=== PATIENT | female | born 1945 | race Caucasian/White ===

== ENCOUNTER 2017-12-25 11:52 | Outpatient (CLI) | payer MEDICARE, SELFPAY ==
[2017-12-25 13:07] LABS: Hemoglobin A1C 7.3 % (4.5-6.2)
[2017-12-25 13:10] LABS: COMMENT (LAB VIEW ONLY) 102.93 mg/dL
[2017-12-25 13:21] LABS: Abs Immature Grans 0.02 k/cumm (0.0-0.09); Absolute Basophil Count 0.11 k/cumm (0.0-0.2); Absolute Eosinophil Count 0.33 k/cumm (0.0-0.7); Absolute Lymphocyte Count 2.42 k/cumm (1.2-3.4); Absolute Neutrophil Count 4.77 k/cumm (1.2-6.7); Basophils % 1.3; HCT 40.4 % (36.0-46.0); HGB 13.1 g/dL (12.0-15.5); Immature Grans % 0.2; Lymphocytes % 29.3; Mean Corp. HGB Concentration 32.4 g/dL (32.0-36.0); Mean Corpuscular Hemoglobin 29.3 pg (27.0-33.0); Mean Corpuscular Volume 90.4 fL (80-95); Monocytes % 7.3; Neutrophils % 57.9; Platelet Count 233 x1000/uL (130-400); RBC 4.47 m/cumm (4.00-5.20); RBC Distribution Width 14.1 % (11.7-14.6); White Blood Cell Count 8.25 k/cumm (4.4-10.8)
[2017-12-25 14:31] LABS: ALT 31 U/L (12-78); AST 26 U/L (15-37); Albumin 3.9 g/dL (3.4-5.0); Alkaline Phosphatase 69 U/L (46-116); Anion Gap 9.4 mmol/L (3-11); BUN 12 mg/dL (7-18); Bilirubin, Total 0.8 mg/dL (0.2-1.0); CO2 30.6 mmol/L (21.0-32.0); CREATININE 0.91 mg/dL (0.55-1.02); Calcium 9.9 mg/dL (8.5-10.1); Chloride 101 mmol/L (98-107); Cholesterol 211 mg/dL (50-200); Glucose 143 mg/dL (70-100); HDL Cholesterol 66 mg/dL (40-60); LDL CHOLESTEROL 126 mg/dL (<100); Magnesium 1.2 mg/dL (1.8-2.4); Potassium 3.5 mmol/L (3.5-5.1); Sodium 141 mmol/L (136-145); Total Protein 6.9 g/dL (6.4-8.2); Triglyceride 102 mg/dL (30-150); Vitamin B12 632 pg/mL (193-986)
== END 2017-12-25 12:12 ==
PROVIDERS: PCP Nurse Practitioner Family; Visit Provider Nurse Practitioner Family
DX: E78.5 Hyperlipidemia, unspecified (principal); E11.9 Type 2 diabetes mellitus without complications
CPT/HCPCS: 36415; 80053; 80061; 83721; 82043; 82570; 82607; 83036; 83735; 85025

== ENCOUNTER 2018-03-04 19:15 | Outpatient (REF) | payer MEDICARE, SELFPAY ==
[2018-03-04 19:24] LABS: Bilirubin Negative (Negative); Blood Trace-lysed (Negative); Clarity Clear; Glucose Negative (Negative); Ketones Negative (Negative); Leukocyte Esterase Negative (Negative); Nitrite Negative (Negative); Specific Gravity 1.015 (1.005-1.025); Urobilinogen 0.2 EU/dL (Up TO 0.2)
[2018-03-04 19:30] LABS: Bacteria Few HPF (Negative); C & S Indicated? No; Casts Negative LPF (Negative); Crystals Negative HPF (Negative); Epithelial Cells Rare HPF (Negative); Mucus Negative (Negative); Other Cells Negative (Negative); RBC 0-2 (0-2); WBC Negative HPF (0-5)
== END 2018-03-04 19:35 ==
LOC: LBN 19:15
PROVIDERS: PCP Nurse Practitioner Family; Visit Provider Nurse Practitioner Family
DX: E11.9 Type 2 diabetes mellitus without complications (principal)
CPT/HCPCS: 81003; 81015

== ENCOUNTER 2018-06-28 10:16 | Outpatient (CLI) | payer MEDICARE, SELFPAY ==
--- NOTE | 2018-06-28 10:12 | DI.RAD_ITS ---
SYMPTOMS/DIAGNOSIS: FIRST YEAR F/U S/P RT TKA RIGHT KNEE: Comparison is made with [id number]. A total knee prosthesis is again noted. There are no abnormal bony lucencies. No joint effusion is seen. IMPRESSION: Stable appearance of total knee prosthesis.
== END 2018-06-28 10:36 ==
PROVIDERS: PCP Nurse Practitioner Family; Referring Provider Nurse Practitioner Family; Visit Provider Student in an Organized Health Care Education/Training Program
DX: Z96.651 Presence of right artificial knee joint (principal); Z98.890 Other specified postprocedural states
CPT/HCPCS: 99213; 73560

== ENCOUNTER → 2018-07-14 10:01 | Outpatient (BNVA) | payer MEDICARE, SELFPAY | PROVIDERS: PCP Nurse Practitioner Family; Referring Provider Nurse Practitioner Family; Visit Provider Student in an Organized Health Care Education/Training Program | DX: S93.411A Sprain of calcaneofibular ligament of right ankle, initial encounter (principal); W01.0XXA Fall on same level from slipping, tripping and stumbling without subsequent striking against object, initial encounter; X50.9XXA Other and unspecified overexertion or strenuous movements or postures, initial encounter; E11.9 Type 2 diabetes mellitus without complications; I10 Essential (primary) hypertension | CPT/HCPCS: 99214; L4361 ==

== ENCOUNTER 2018-07-19 10:22 | Outpatient (CLI) | payer MEDICARE, SELFPAY ==
[2018-07-19 10:48] LABS: Hemoglobin A1C 7.7 % (4.5-6.2)
[2018-07-19 11:28] LABS: Anion Gap 8.3 mmol/L (3-11); BUN 12 mg/dL (7-18); CO2 30.7 mmol/L (21.0-32.0); CREATININE 0.87 mg/dL (0.55-1.02); Calcium 10.3 mg/dL (8.5-10.1); Chloride 101 mmol/L (98-107); Glucose 154 mg/dL (70-100); Magnesium 1.6 mg/dL (1.8-2.4); Potassium 4.4 mmol/L (3.5-5.1); Sodium 140 mmol/L (136-145)
== END 2018-07-19 10:42 ==
PROVIDERS: PCP Nurse Practitioner Family; Visit Provider Nurse Practitioner Family
DX: E11.9 Type 2 diabetes mellitus without complications (principal); E83.42 Hypomagnesemia; Z12.11 Encounter for screening for malignant neoplasm of colon; I10 Essential (primary) hypertension
CPT/HCPCS: 36415; 80048; 83036; 83735

== ENCOUNTER → 2018-07-28 10:17 | Outpatient (BNVA) | payer MEDICARE, SELFPAY | PROVIDERS: PCP Nurse Practitioner Family; Referring Provider Nurse Practitioner Family; Visit Provider Student in an Organized Health Care Education/Training Program | DX: S93.411A Sprain of calcaneofibular ligament of right ankle, initial encounter (principal); W19.XXXA Unspecified fall, initial encounter; E11.9 Type 2 diabetes mellitus without complications; I10 Essential (primary) hypertension | CPT/HCPCS: 99212; 99213 ==

== ENCOUNTER 2018-08-09 12:59 | Day surgery (SDC) | payer MEDICARE, SELFPAY ==
--- NOTE | 2018-08-09 06:58 | W.COLOREPORT ---
Date of service: 08/09/18 Time of Service: 14:41 Colonoscopy Report Date of procedure: 08/09/18 Pre-op diagnosis general: Colon Cancer Screening Post-op diagnosis procedure note: other (colorectal polyps) Procedure: Colonoscopy with polypectomy by cold forceps Surgeon: Colleen Fuller Anesthesia proc note operative: other (General/ ASA 2/ Kateryna Bear CRNA) Estimated blood loss (mL): 3 Pathology: other (Ascending colon polyp and Transverse colon polyp) Complications: None Disposition: same day Indications: Mrs. Martinez is a pleasant 72-year-old female who was seen in the office for a screening colonoscopy. Her last colonoscopy was in 2006 and was normal. Risks, benefits and complications have been reviewed. Complications include but are not limited to bleeding, pain, perforation, missed small lesion/polyp, sore throat, aspiration and adverse reaction to the medications. Questions were entertained and answered to their satisfaction and they wished to proceed. No guarantees were given or implied. Prep: Miralax/Dulcolax Procedure Start Time: 14:41 Procedure End Time: 15:16 Retraction Time: 16 minutes Findings: One sessile polyp in the ascending colon and one pedunculated polyp in the Transverse colon. Both removed with cold forceps Procedure Description: After informed consent was obtained the patient was taken to the procedure room and placed in a left decubitous position. Monitors were applied and a time out was done. The patients name, date of , procedure, allergies to medications and metal in their body was reviewed. The patient was then sedated. Once sedated and comfortable a rectal exam was done. External exam was normal. Internal exam revealed a normal sphincter tone and no palpable masses. The scope was then introduced and retro-flexed. No internal hemorrhoids were identified. The scope was then advanced to the cecum with some difficulty. The TI and appendiceal orifice were identified. The prep was adequate. The scope was then slowly retracted over 16 minutes back into the rectum. Polyps were removed with cold forceps in the ascending colon and descending colon. There were no diverticula noted. The scope was removed and the patient was woken up and taken back to Same day surgery in stable condition. The patient tolerated the procedure well and there were no immediate complications. Follow up: The patient should follow up in 3-5 years unless they develop changes in bowel habits or other new gastrointestinal complaints.
--- NOTE | 2018-08-09 07:03 | W.PM.DSUDISC ---
Discharge Plan Disposition Patient Disposition: HOME Condition: Good Discharge Details Reason For Visit: Colon Cancer Screening Attending Provider: Colleen Fuller Primary Care Provider: Alana Quezada Home Meds and New Rx's Prescriptions: Continued lisinopril 10 mg tablet 10 mg PO DAILY Qty: 30 RF: 0 empagliflozin 10 mg tablet 10 mg PO DAILY Qty: 30 RF: 0 magnesium oxide 400 mg capsule 400 mg PO BID RF: 0 aspirin 81 mg tablet,delayed release (DR/EC) 81 mg PO DAILY Qty: 80 RF: 0 simvastatin 40 mg tablet 40 mg PO DAILY Qty: 90 RF: 4 multivitamin [Daily Multi-Vitamin] 1 EACH tablet 1 ea PO DAILY RF: 0 blood-glucose meter 1 EACH misc 1 ea Miscellaneous ONCE Qty: 1 RF: 0 lancets 1 EACH misc 1 ea Miscellaneous QD Qty: 200 RF: 4 Blood Glucose Test 1 EACH strip 1 ea Miscellaneous DAILY Qty: 200 RF: 4 atenolol 50 mg tablet 50 mg PO DAILY Qty: 90 RF: 4 omeprazole 20 mg capsule,delayed release(DR/EC) 20 mg PO QAM Qty: 90 RF: 4 acetaminophen [Tylenol Extra Strength] 500 mg Tablet 500 mg PO Q6H PRNRF: 0 Discontinued polyethylene glycol 3350 17 gram/dose powder 238 g PO ONCE Qty: 238 RF: 0 bisacodyl [Dulcolax (bisacodyl)] 5 mg tablet,delayed release (DR/EC) 5 mg PO ONCE Qty: 4 RF: 0 Discharge Instructions Instructions: Colonoscopy (DC), Colorectal Polyps (DC) Additional Instructions: Findings: polyps x2 Follow up: 3-5 years Please call if you develop: fevers >101.5 Nausea or Vomiting Abdominal pain that is not transient DAY SURGERY UNIT POST COLONOSCOPY INSTRUCTIONS 1. Because there will be medication in your system for the next 24 hours, you may feel a little sleepy. Your coordination will be affected. Therefore: a. Do not drive or operate dangerous equipment for 24 hours. b. Do not drink alcohol beverages for 24 hours (not even beer). c. Plan to go home and rest for the day. 2. Generally there are no restrictions on your activity after a day or so has gone by, but you may feel a bit fatigued for a few days. 3 After you arrive home you may have a light meal and return to a normal diet as you can tolerate it without feeling sick to your stomach. 4. After surgery, you may feel pain or discomfort. This should be only transient, but if it persists please contact your doctor. 5. If there are any questions regarding the findings of your procedure, please feel free to contact your doctor. 6. If you are unable to contact your doctor with a problem, contact the hospital at [phone]. 7. Continue all your regular medications unless directed otherwise. I understand the above instructions and have no questions. Signature of Patient or Responsible Adult Escort Date/Time Name of Responsible Adult Escort Signature of Nurse Date/Time Activity:: Activity as Tolerated Diet:: As Tolerated Discharge Orders Discharge Orders: Discharge Order (Routine); Ordered 08/09/18 Ordered By: Colleen Fuller DS: Diagnosis Discharge Diagnosis (1) S/P colonoscopy: Status: Acute (2) Colorectal polyps: Status: Acute
[2018-08-09 13:33] VITALS: BP 154/76; PULSE 64; RESP 16; TEMP 36.2; O2SAT 96
[2018-08-09] MEDS: Lactated Ringers 1,000 ML 80 ML IV (13:45)
--- NOTE | 2018-08-09 15:04 | BOWEL_PTH ---
PATIENT: Suha Martinez LOC: [facility] U#:[id number] AGE/SX: 72/F ROOM: RE08/09/[address]: Colleen Fuller MD : 1945 BED: DIS: 08/09/2018 SPEC #: [id number] RECD: 08/09/18 18:19 STATUS: STEFAN REThomas #: [id number] DANIELA: 08/09/18 15:[address]: Colleen Fuller DEPT: Surgical Specimen RECD BY: Tita Gallardo ENTERED: 08/09/18 18:19 SP TYPE: Bowel OTHR DR: RICKY Rodgers Tissues: 1 - BIOPSY BOWEL 2 - BIOPSY BOWEL Procedures: GROSS AND MICRO LEVEL 4 Comments: [id number]
[2018-08-09 16:00] VITALS: BP 122/60; PULSE 64; RESP 16; TEMP 35.9; O2SAT 97
== END 2018-08-09 16:30 | disposition home or self-care (01) ==
LOC: SUR 12:59
PROVIDERS: PCP Nurse Practitioner Family; Visit Provider Surgery
PROC: 0DJD8ZZ Inspection of Lower Intestinal Tract, Via Natural or Artificial Opening Endoscopic (ICD-10-PCS; CPT 45378; principal; 2018-08-09 14:00)
DX: Z12.11 Encounter for screening for malignant neoplasm of colon (principal); D12.2 Benign neoplasm of ascending colon; D12.3 Benign neoplasm of transverse colon; I10 Essential (primary) hypertension; K21.9 Gastro-esophageal reflux disease without esophagitis; E11.9 Type 2 diabetes mellitus without complications; Z79.84 Long term (current) use of oral hypoglycemic drugs
CPT/HCPCS: 45380; 88305

== ENCOUNTER 2018-09-29 11:22 | Outpatient (CLI) | payer MEDICARE, SELFPAY ==
--- NOTE | 2018-09-29 11:18 | DI.RAD_ITS ---
SYMPTOMS/DIAGNOSIS: NEW PAIN OVER MEDIAL TKA, CONTINUED RT ANKLE PAIN AND SWELLING RIGHT KNEE: Two views were obtained. There is a total knee joint replacement in position. The components appear well seated. No other significant bony abnormality is seen. RIGHT ANKLE: Three views were obtained. The ankle mortise is well maintained. There are minimal degenerative changes of the joints of the ankle. There are osteophytes at the sites of attachment of the Achilles tendon and plantar fascia on the calcaneus. No other significant bony abnormality is seen.
== END 2018-09-29 11:42 ==
PROVIDERS: PCP Nurse Practitioner Family; Referring Provider Nurse Practitioner Family; Visit Provider Student in an Organized Health Care Education/Training Program
DX: Z96.651 Presence of right artificial knee joint (principal); S93.411A Sprain of calcaneofibular ligament of right ankle, initial encounter; M25.561 Pain in right knee; M25.571 Pain in right ankle and joints of right foot; M19.071 Primary osteoarthritis, right ankle and foot; M25.771 Osteophyte, right ankle; I10 Essential (primary) hypertension; X58.XXXA Exposure to other specified factors, initial encounter; E11.9 Type 2 diabetes mellitus without complications
CPT/HCPCS: 99213; 73560; 73610

== ENCOUNTER 2018-10-11 07:42 | Outpatient (CLI) | payer MEDICARE, SELFPAY ==
[2018-10-11 10:34] LABS: Hemoglobin A1C 7.5 % (4.5-6.2)
[2018-10-11 10:56] LABS: BUN 16 mg/dL (7-18); CREATININE 0.82 mg/dL (0.55-1.02); Calcium 9.9 mg/dL (8.5-10.1); Calculated LDL 105 mg/dL; Chloride 106 mmol/L (98-107); Cholesterol 182 mg/dL (50-200); Glucose 144 mg/dL (70-100); HDL Cholesterol 55 mg/dL (40-60); Magnesium 1.9 mg/dL (1.8-2.4); Potassium 4.3 mmol/L (3.5-5.1); Sodium 142 mmol/L (136-145); Triglyceride 110 mg/dL (30-150)
== END 2018-10-11 08:02 ==
PROVIDERS: PCP Nurse Practitioner Family; Visit Provider Nurse Practitioner Family
DX: E11.9 Type 2 diabetes mellitus without complications (principal); E83.42 Hypomagnesemia
CPT/HCPCS: 36415; 80048; 80061; 83721; 83036; 83735

== ENCOUNTER 2018-11-04 14:43 | Outpatient (REF) | payer MEDICARE, SELFPAY ==
--- NOTE | 2018-11-04 13:40 | PAPFT_PTH ---
PATIENT: Suha Martinez LOC: [facility] U#:[id number] AGE/SX: 72/F ROOM: RE11/04/[address]: Dinah Chiu MD : 1945 BED: DIS: 11/04/2018 SPEC #: [id number] RECD: 11/04/18 17:40 STATUS: STEFAN HUANG #: [id number] DANIELA: 11/04/18 13:[address]: Dinah Chiu DEPT: [facility] Cytology RECD BY: Tita Gallardo ENTERED: 11/04/18 17:41 SP TYPE: PAPFT MARC DR: Alana Quezada, OCCASIONAL CAREGIVER Tissues: 1 - CX/ENDOCX FOR PAP SMEARS Procedures: PAP THIN PREP/UVM Screening Comments: [id number]
== END 2018-11-04 15:03 ==
LOC: LBN 14:43
PROVIDERS: PCP Nurse Practitioner Family; Visit Provider Obstetrics & Gynecology
DX: Z12.4 Encounter for screening for malignant neoplasm of cervix (principal)
CPT/HCPCS: 88142

== ENCOUNTER → 2018-11-10 10:43 | Outpatient (BNVA) | payer MEDICARE, SELFPAY | PROVIDERS: PCP Nurse Practitioner Family; Referring Provider Nurse Practitioner Family; Visit Provider Student in an Organized Health Care Education/Training Program | DX: S93.411D Sprain of calcaneofibular ligament of right ankle, subsequent encounter (principal); I10 Essential (primary) hypertension; E11.9 Type 2 diabetes mellitus without complications; X58.XXXD Exposure to other specified factors, subsequent encounter | CPT/HCPCS: 99213 ==

== ENCOUNTER 2019-05-27 15:04 | Outpatient (CLI) | payer MEDICARE, SELFPAY ==
--- NOTE | 2019-05-27 14:19 | DI.MAMMO_ITS ---
EXAM: MAMMO SCREENING CLINICAL HISTORY: screening Z12.39 TECHNIQUE: Mammograms were interpreted according to the usual protocol including computer analysis w THE [employer] CAD system, tomosynthesis and C-view imaging. COMPARISON: 2014 through 2017 FINDINGS: The breasts are composed of mainly fatty density , Breast Density category A. No suspicious masses or suspicious microcalcifications are seen. No skin thickening or abnormal axillary lymph nodes are seen. There has been no significant change from prior exams. Vascular calcifications are noted. IMPRESSION: BIRADS Category 1, negative mammogram. Yearly screening mammography is recommended. Breast density category A.
== END 2019-05-27 15:24 ==
PROVIDERS: PCP Nurse Practitioner Family; Visit Provider Nurse Practitioner Family
DX: Z12.31 Encounter for screening mammogram for malignant neoplasm of breast (principal)
CPT/HCPCS: 77063; 77067

== ENCOUNTER 2019-08-15 01:38 | Outpatient (CLI) | payer MEDICARE, SELFPAY ==
--- NOTE | 2019-08-15 07:30 | DI.RAD_ITS ---
EXAM: XR MANDIBLE COMPLETE CLINICAL HISTORY: Right sided jaw pain since fall r68.84 TECHNIQUE: COMPARISON: No exams were available for comparison FINDINGS: Seven views were obtained. The patient is edentulous. No fracture of the mandible identified on the films obtained, however, I would note that the mandibular condyles are poorly visualized. If there is clinical suspicion of a mandibular condylar fracture, additional evaluation with CT would be recom mended. IMPRESSION:
== END 2019-08-15 01:58 ==
PROVIDERS: PCP Nurse Practitioner Family; Visit Provider Nurse Practitioner Family
DX: R68.84 Jaw pain (principal)
CPT/HCPCS: 70110

== ENCOUNTER 2019-09-29 11:51 | Outpatient (CLI) | payer MEDICARE, OTHER, SELFPAY ==
--- NOTE | 2019-09-29 11:17 | DI.RAD_ITS ---
EXAM: XR KNEE RT 2V AP,LAT CLINICAL HISTORY: KNEE PAIN TECHNIQUE: COMPARISON: CR XR knee RT 2V AP,lat from 09/29/2018 FINDINGS: Two views were obtained. There is a total knee joint replacement in position. The components appear well seated. No other significant bony abnormality seen. IMPRESSION:
== END 2019-09-29 12:11 ==
PROVIDERS: PCP Nurse Practitioner Family; Referring Provider Nurse Practitioner Family; Visit Provider Student in an Organized Health Care Education/Training Program
DX: M25.561 Pain in right knee (principal); Z96.651 Presence of right artificial knee joint; M70.51 Other bursitis of knee, right knee; E11.9 Type 2 diabetes mellitus without complications
CPT/HCPCS: 99213; 73560

== ENCOUNTER 2019-11-17 22:20 | Outpatient (REF) | payer MEDICARE, OTHER, SELFPAY ==
[2019-11-17 19:46] LABS: ALT 22 U/L (14-59); AST 16 U/L (15-37); Albumin 3.9 g/dL (3.4-5.0); Alkaline Phosphatase 49 U/L (46-116); Anion Gap 9.9 mmol/L (3-11); BUN 21 mg/dL (7-18); Bilirubin, Total 0.4 mg/dL (0.2-1.0); CO2 27.1 mmol/L (21.0-32.0); CREATININE 1.03 mg/dL (0.55-1.02); Calcium 9.9 mg/dL (8.5-10.1); Calculated LDL 94 mg/dL (<100); Chloride 103 mmol/L (98-107); Cholesterol 182 mg/dL (<200); Estimated GFR 52.38 (mL/min/1.73m2); Glucose 234 mg/dL (74-106); HDL Cholesterol 51 mg/dL (40-60); Potassium 3.5 mmol/L (3.5-5.1); Sodium 140 mmol/L (136-145); Total Protein 6.8 g/dL (6.4-8.2); Triglyceride 185 mg/dL (<150)
[2019-11-17 20:37] LABS: Hemoglobin A1C 6.9 % (3.8-5.6)
== END 2019-11-17 22:40 ==
LOC: LBN 22:20
PROVIDERS: PCP Nurse Practitioner Family; Visit Provider Nurse Practitioner Family
DX: E11.9 Type 2 diabetes mellitus without complications (principal)
CPT/HCPCS: 80053; 80061; 83036

== ENCOUNTER 2019-11-25 04:26 | Outpatient (CLI) | payer MEDICARE, SELFPAY ==
--- NOTE | 2019-11-25 07:45 | DI.US_ITS ---
EXAM: US PELVIS TRANSVAGINAL CLINICAL HISTORY: Lower abdominal pain, hx of pelvic mesh placement,R10.30 TECHNIQUE: Transabdominal and transvaginal imaging was performed using standard protocol. COMPARISON: None FINDINGS: KIDNEYS: Kidneys are symmetric in size. No evidence of renal calculi. No evidence of hydronephrosis. There is a 1 centimeter hyperechoic area near the lower pole of the left kidney consistent with incid ental angiomyolipoma. Patient had difficulty tolerating the transvaginal portion of the exam. UTERUS: Status post hysterectomy. OVARIES: Not seen. Bladder: The urinary bladder was only mildly distended on transabdominal imaging. On transvaginal im aging, there is apparent thickening and trabeculation of the bladder wall as well as debris within th e bladder. No focal mass or calcification is visible. Free fluid: None. IMPRESSION: Status post hysterectomy. The ovaries were not visualized. Thick walled bladder with trabeculation. Debris is seen within the bladder. DATA REPOSITORY:
== END 2019-11-25 04:46 ==
PROVIDERS: PCP Nurse Practitioner Family; Visit Provider Nurse Practitioner Family
DX: R10.30 Lower abdominal pain, unspecified (principal); Z90.710 Acquired absence of both cervix and uterus
CPT/HCPCS: 76830; 76856

== ENCOUNTER 2020-02-08 18:02 | Outpatient (REF) | payer MEDICARE, SELFPAY ==
[2020-02-13 22:20] LABS: SARS-CoV-2 RNA Undetected (Undetected); SARS-CoV-2 Specimen Source Nasal
== END 2020-02-08 18:22 ==
LOC: LBN 18:02
PROVIDERS: PCP Nurse Practitioner Family; Visit Provider Nurse Practitioner Family
DX: R05 Cough (principal); J06.9 Acute upper respiratory infection, unspecified
CPT/HCPCS: U0003

== ENCOUNTER 2020-12-07 14:42 | Outpatient (REF) | payer MEDICARE, SELFPAY ==
[2020-12-07 13:09] LABS: Hemoglobin A1C 6.9 % (<5.7)
[2020-12-07 13:11] LABS: ALT 33 U/L (14-59); AST 18 U/L (15-37); Alkaline Phosphatase 61 U/L (46-116); Anion Gap 10.2 mmol/L (3-11); BUN 18 mg/dL (7-18); Bilirubin, Total 0.4 mg/dL (0.2-1.0); CO2 26.8 mmol/L (21.0-32.0); CREATININE 1.1 mg/dL (0.55-1.02); Calcium 10.2 mg/dL (8.5-10.1); Calculated LDL 101 mg/dL (<100); Chloride 106 mmol/L (98-107); Cholesterol 184 mg/dL (<200); Estimated GFR 48.42 (mL/min/1.73m2); Glucose 157 mg/dL (74-106); HDL Cholesterol 65 mg/dL (40-60); Potassium 4.1 mmol/L (3.5-5.1); Sodium 143 mmol/L (136-145); Total Protein 6.9 g/dL (6.4-8.2); Triglyceride 94 mg/dL (<150)
== END 2020-12-07 14:43 | disposition home or self-care (01) ==
LOC: LBN 14:42
PROVIDERS: PCP Nurse Practitioner Family; Visit Provider Nurse Practitioner Family
DX: I10 Essential (primary) hypertension (principal); E11.9 Type 2 diabetes mellitus without complications
CPT/HCPCS: 80053; 80061; 83036

== ENCOUNTER 2021-04-09 01:08 | Outpatient (CLI) | payer MEDICARE, SELFPAY ==
--- NOTE | 2021-04-09 07:15 | DI.MAMMO_ITS ---
Exam(s) MAMMO SCREENING EXAM: MAMMO SCREENING CLINICAL HISTORY: screening,z12.39 TECHNIQUE: Bilateral full field digital CC and MLO mammographic images were obtained with 3D tomosyn thesis and utilizing computer aided detection (CAD). COMPARISON: Available for comparison. FINDINGS: Masses/Architectural Distortion: None seen. Microcalcifications: No suspicious pleomorphic-type are seen. Skin Thickening/Nipple Retraction: None. IMPRESSION: 1. No significant interval change with no specific features of malignancy noted. 2. Unless there is more urgent need, screening mammography is recommended, as per [employer] guidelines. BI-RADS Category 1 - Negative Breast Density - Category B - Scattered areas of fibroglandular density Breast density category C or D implies that the patient has dense breast tissue. Dense breast tissue is very common and is not abnormal but dense breast tissue can make it harder to find cancer on a ma mmogram. Also, dense breast tissue may increase their breast cancer risk. This information about the result of the mammogram report was provided to the patient to raise their awareness. Use this report when you speak with the patient about their risks for breast cancer, which includes their family hist ory. At that time, you may recommend for more screening tests (Ultrasound or MRI) as they might be us eful based on their risk. A negative radiographic report should not delay biopsy if a dominant or clinically suspicious mass is present. Up to ten percent of cancers are not identified on mammography. A negative report may reinforce clinical impression. Adenosis and dense breasts may obscure an underlying neoplasm. False positive reports average 6 to 10%. Patient will receive a letter notifying them of these results.
== END 2021-04-09 01:28 ==
PROVIDERS: PCP Nurse Practitioner Family; Visit Provider Nurse Practitioner Family
DX: Z12.31 Encounter for screening mammogram for malignant neoplasm of breast (principal)
CPT/HCPCS: 77063; 77067

== ENCOUNTER 2021-07-09 04:38 | Outpatient (CLI) | payer MEDICARE, SELFPAY | END 2021-07-09 04:39 | disposition home or self-care (01) | LOC: LBO 04:38 | PROVIDERS: PCP Nurse Practitioner Family; Visit Provider Nurse Practitioner Family ==

== ENCOUNTER 2021-08-29 12:05 | Outpatient (REF) | payer MEDICARE, SELFPAY | END 2021-08-29 12:06 | disposition home or self-care (01) | LOC: LBN 12:05 | PROVIDERS: PCP Nurse Practitioner Family; Visit Provider Nurse Practitioner | DX: R35.0 Frequency of micturition (principal) | CPT/HCPCS: 87077; 87086; 87186 ==

== ENCOUNTER 2021-09-04 03:55 | Outpatient (CLI) | payer MEDICARE, SELFPAY ==
[2021-09-04 13:41] LABS: Anion Gap 8.4 mmol/L (3-11); BUN 16 mg/dL (7-18); CO2 27.6 mmol/L (21.0-32.0); CREATININE 0.9 mg/dL (0.55-1.02); Calcium 9.9 mg/dL (8.5-10.1); Calculated LDL 102 mg/dL (<100); Chloride 105 mmol/L (98-107); Cholesterol 186 mg/dL (<200); Glucose 168 mg/dL (74-106); HDL Cholesterol 65 mg/dL (40-60); Potassium 4.7 mmol/L (3.5-5.1); Sodium 141 mmol/L (136-145); Triglyceride 96 mg/dL (<150)
== END 2021-09-04 03:56 | disposition home or self-care (01) ==
LOC: LOS 03:55
PROVIDERS: PCP Nurse Practitioner Family; Visit Provider Nurse Practitioner
DX: I10 Essential (primary) hypertension; E11.9 Type 2 diabetes mellitus without complications
CPT/HCPCS: 36415; 80048; 80061; 83036

== ENCOUNTER 2022-01-20 07:22 | Day surgery (SDC) | payer MEDICARE, SELFPAY ==
[2022-01-20] MEDS: Tropicam./Phenyleph. (1/2.5%) 5 ML BTL OD ×3 (07:52→08:09)
[2022-01-20 08:00] VITALS: BP 156/70; PULSE 78; RESP 16; TEMP 36.4; O2SAT 98
--- NOTE | 2022-01-20 08:06 | ANES.PREOP_ITS ---
General Info Date of Service Date Performed: 01/20/22 Height: 5 ft 2 in Weight: 72 kg Body Mass Index (BMI): 29.0 Surgical Procedure: Operation Date: 01/20/22 09:40 Proposed Procedure Side Surgeon p Cataract Extraction with IOL Implant Right Filemon Reeves MD Meds Allergies and Home Medications Allergies Allergy/AdvReac Type Severity Reaction Status Date / Time Iodinated Contrast Media Allergy Severe RASH Verified 01/20/22 07:57 [Iodinated Contrast- Oral and IV Dye] codeine AdvReac Severe PASSES Verified 01/20/22 07:57 OUT, VOMITS morphine AdvReac Severe PASSES Verified 01/20/22 07:57 OUT, VOMITS meperidine AdvReac Unknown Pt reports Verified 01/20/22 07:57 vomiting foam oxycodone AdvReac Unknown vomits Verified 01/20/22 07:57 tramadol AdvReac VOMITING, Verified 01/20/22 07:57 UNABLE TO MOVE NARCOTICS AdvReac VOMITING Uncoded 01/20/22 07:57 Home Medication Medication Instructions Recorded blood-glucose meter #1 ea 08/22/15 aspirin 81 mg tablet,delayed 81 mg PO DAILY #80 tabs 03/04/18 release potassium chloride 10 mEq 10 meq PO DAILY 04/20/19 tablet,extended release vit C 250 mg-vit E 90 mg-zinc 40 1 tab PO BID 04/20/19 mg-copper 1 uk-zhvtwm-lllhhy capsule (PreserVision AREDS-2) lancets 33 gauge (BD Ultra Fine #200 ea 08/27/20 Lancets) blood sugar diagnostic (FreeStyle #200 ea 08/22/21 Lite Strips) glipizide 5 mg tablet 5 mg PO BID #180 tabs 08/29/21 lisinopril 40 mg tablet 40 mg PO DAILY #90 tabs 08/29/21 omeprazole 20 mg capsule,delayed 20 mg PO QAM #90 tab-caps 08/29/21 release simvastatin 20 mg tablet 20 mg PO DAILY #90 tab-caps 08/29/21 amlodipine 10 mg tablet 10 mg PO DAILY #90 tabs 12/13/21 Current Visit Medications: Current Medications Generic Name Dose Route Start Last Admin Trade Name Freq PRN Reason Stop Dose Admin Acetaminophen 1,000 mg 01/20/22 06:00 Acetaminophen 500 Mg Tab PO Q4H PRN PRN Miscellaneous Medication 0 ml 01/20/22 06:00 Prednisolone 1%, Moxifloxacin 0.5%, Nepafenac 0.1% 5ml Btl OD DIRECTED [facility] Miscellaneous Medication 0 ml 01/20/22 06:00 Tropicam./Phenyleph. (1/2.5%) 5 Ml Btl OD DIRECTED [facility] Tetracaine HCl 0 ml 01/20/22 06:00 Tetracaine 0.5% 4 Ml Btl OD DIRECTED [facility] PFSH Active Problems Active Problems: Problem Status Onset Code GERD (gastroesophageal reflux disease) Essential hypertension I10 Hyperlipidemia E78.5 Type 2 diabetes mellitus E11.9 Osteoarthritis M19.90 Nuclear sclerotic cataract of right eye H25.11 Cortical cataract of right eye H26.9 Medical History Medical History Depressive disorder Surgical History Surgical History (Updated 01/20/22 @ 07:55 by Rachel Irwin) History of arthroplasty of left knee (11/29/12) Left TKA by Dr. Parra at [facility] History of arthroplasty of right knee (06/04/17) Right TKA by Dr. Christianson History of bilateral breast reduction surgery (04/2009) History of knee replacement right knee History of suburethral sling procedure (06/07/07) History of tonsillectomy S/P abdominal hysterectomy (~1979) Ovaries remain. For AUB S/P appendectomy S/P arthroscopy of left knee (09/15/02) Partial medial and lateral meniscectomies S/P cholecystectomy S/P colonoscopy (08/09/18) 2006-normal S/P sacrocolpopexy (04/20/07) Tobacco Smoking/Tobacco Use Status: Never Passive smoking exposure: Yes Second hand exposure: Yes Alcohol Alcohol Intake: never Substance Use Substance use: Never Substance use type: does not use Details: Pt. reports using CBD on knees about one week ago Prental History History 4 Para Hx # Term Pregnancies 4 Multiple births Hx # Pregnancies Ectopic pregnancies AB induced Hx Number of Living Children 2 AB spontaneous Vital Signs and Lab Results Vital Signs Most Recent Vital Signs in EMR: Most Recent Vital Signs Temp Pulse Resp BP Pulse Ox 36.4 C L 78 16 156/70 H 98 01/20/22 08:00 01/20/22 08:00 01/20/22 08:00 01/20/22 08:00 01/20/22 08:00 Lab Results Blood Type / Crossmatch: No Data to Display Complete Blood Count: No Data to Display Complete Metabolic Panel: No Data to Display Liver Function Panel: No Data to Display Coagulation Panel: No Data to Display Cardiac Panel: No Data to Display Arterial Blood Gas: No Data to Display Venous Blood Gas: No Data to Display Pancreas Panel: No Data to Display Thyroid Panel: No Data to Display Infectious Disease: No Data to Display Blood Cultures: No Data to Display Toxicology Panel: No Data to Display Anesthesia Assessment and Plan Anesthesia History Personal History: No History of Anesthesia Complications Family History: No Family History of Anesthesia Complications Exercise Tolerance Exercise Tolerance: Metabolic Equivalents>4 Pertinent Negatives Pertinent Negatives: No Symptoms of GERD, No Major Cardiovascular Symptoms or Complaints and No Major Pulmonary Symptoms or Complaints Cardiac & Pulmonary Exam Cardiac Exam: Normal S1/S2 Heart Sounds Pulmonary Exam: Clear Bilateral Breath Sounds Implantable Cardiac Device Does patient have a Pacemaker or an ICD?: No Airway Exam Known Difficult Airway: No Mallampati Class: 2 Mouth Opening: Normal (> 3cm) Thyromental Distance: Greater than 3 cm Neck Range of Motion: Full ROM Neck Circumference: Normal Teeth Condition: Removable Dentures/Plates Upper ASA Classification ASA Score: ASA 2 Emergency Case?: No NPO Status NPO Status: NPO Clears >2 hours, Solids >8 hours Anesthesia Plan Resuscitation Status: Full Code Anesthesia Technique: MAC Anesthesia Airway Planned: Natural Airway Monitors Used: Standard Monitors
[2022-01-20 08:07] VITALS: BMI 29.0
[2022-01-20] MEDS: Tetracaine 0.5% 4 ML BTL OD (09:14)
[2022-01-20] MEDS: Balanced Salt Soln.-PLUS 500 ML BAG (09:15)
[2022-01-20] MEDS: Lidocaine 2% Jelly 6 ML SYR (09:16)
[2022-01-20] MEDS: Povidone-Iodine Ophth 30 ML BTL (09:18)
[2022-01-20 09:39] VITALS: BP 130/72; PULSE 75; RESP 16; TEMP 36.7; O2SAT 96
--- NOTE | 2022-01-20 09:39 | W.PM.DSUDISC ---
Discharge Plan Disposition Patient Disposition: HOME Condition: Good Discharge Details Attending Provider: Filemon Reeves Primary Care Provider: Alana Quezada Meds and New Rx's Prescriptions: No Action aspirin 81 mg tablet,delayed release (DR/EC) 81 mg PO DAILY Qty: 80 0RF potassium chloride 10 mEq tablet extended release 10 meq PO DAILY PreserVision AREDS-2 816-102-05-1 qt-gkcg-ei-mg capsule 1 tab PO BID (DME) lancets [BD Ultra Fine Lancets] 33 gauge misc See Rx Instructions .ROUTE .MEDSUPPLY Qty: 200 4RF Rx Instructions: Check blood sugar twice a day lisinopril 40 mg tablet 40 mg PO DAILY Qty: 90 4RF Rx Instructions: Take 1 tablet once a day omeprazole 20 mg capsule,delayed release(DR/EC) 20 mg PO QAM Qty: 90 4RF simvastatin 20 mg tablet 20 mg PO DAILY Qty: 90 4RF glipizide 5 mg tablet 5 mg PO BID Qty: 180 4RF Rx Instructions: Take 1 tablet twice a day (DME) blood-glucose meter 1 EACH misc 1 ea Miscellaneous ONCE Qty: 1 Rx Instructions: METER TYPE FREESTYLE LITE DX CODE E11.9 (DME) FreeStyle Lite Strips Strip See Dose Instructions .ROUTE .MEDSUPPLY Qty: 200 4RF Dose Instruction: As directed Rx Instructions: Check blood sugar twice a day amlodipine 10 mg tablet 10 mg PO DAILY Qty: 90 4RF Discharge Instructions Stand Alone Forms: Post-op Topical CataractArnaud (DSU) Discharge Orders Discharge Orders: Discharge Order (Routine); Ordered 01/20/22 Ordered By: Filemon Reeves DS: Diagnosis Discharge Diagnosis (1) Nuclear sclerotic cataract of right eye: Status: Resolved (2) Cortical cataract of right eye: Status: Resolved
--- NOTE | 2022-01-20 09:40 | W.PM.OP ---
Date of service: 01/20/22 Time of Service: 09:40 Operative Note Operative Note DATE OF PROCEDURE: 01/20/22 PRE-OP DIAGNOSIS: Nuclear/cortical cataract, right eye POST-OP DIAGNOSIS: same PROCEDURE: Cataract extraction using phacoemulsification with intraocular lens implant, right eye SURGEON: Filemon Reeves ANESTHESIA TYPE: Local By Surgeon and MAC Refer to Anesthesia Record ESTIMATED BLOOD LOSS: 0 PATHOLOGY: none sent COMPLICATIONS: None Patient was transported to: same day Patient's condition: stable Implants: Shorty & Shorty/ANALI Tecnis [id number] Indications: Progressive visual loss due to cataract, right eye Procedure Description: CATARACT SURGERY OPERATIVE REPORT PREOPERATIVE DIAGNOSIS: 1. Nuclear/cortical cataract, right eye POSTOPERATIVE DIAGNOSIS: Same OPERATION: 1. Cataract extraction using phacoemulsification with posterior chamber intraocular lens implant, right eye. IOL: IOL Medical Operations Supervisor/Model: Shorty & Shorty / ANALI Tecnis [id number] IOL Power: + 17.5 diopters IOL Serial Number: [id number] Optic Diameter: 6.0mm Haptic/Overall Diameter: 13.0mm PHACO INFO: Dino Comuni-Chiamourion Vision System with OZil and Active Fluidics Cumulative Dispersed Energy (CDE): 11.0 seconds SURGEON: Filemon Reeves MD, AARON ANESTHESIA: Monitored Anesthesia Care (MAC), with local sub-tenon's anesthetic infiltration COMPLICATIONS: None SPECIMENS: None INDICATIONS FOR PROCEDURE: The patient is a 76-year-old lady with history of diminished visual acuity in her right eyes secondary to the development of nuclear/cortical cataract. She has a history of orbital trauma on the right with orbital reconstruction. She is significantly symptomatic from cataract in the right eye that she desires cataract surgery to attempt to improve and maximize her vision. PROCEDURE: The correct surgical eye was identified and marked as the right eye and the pupil was dilated in the preoperative area using mydriatics and cycloplegics. The dilated pupil size was 7.0 mm. The patient elected to proceed without oral sedation. The patient was brought to the operating room where cardiopulmonary monitoring was instituted and surgical time-out was performed, confirming the correct operative eye and IOL power. Topical anesthesia was administered and ophthalmic povidone-iodine 5% was instilled into the conjunctival fornices. Lidocaine gel was applied to the cornea and the gayle-ocular area was prepped with Betadine 10% solution and draped in the usual sterile fashion for intraocular surgery, including an aperture drape. A Tegaderm transparent film dressing was cut in half and used to cover the lashes and lid margins. Care was taken to sequester the lashes and lid margins under the Tegaderm dressing. A lid speculum was placed between the lids of the operative eye and the Dino LuxOR Revalia operating microscope was maneuvered into position. Liv scissors were then used to make a conjunctival buttonhole approximately 6mm posterior to the limbus in the inferonasal quadrant. Blunt dissection was carried out to expose bare sclera, and a blunt-tipped sub-tenon?s anesthesia cannula was introduced and passed posteriorly along the globe where non-preserved plain lidocaine was injected into posterior sub-Tenon?s space. A sideport knife was used to make a paracentesis port inferotemporally. Intraocular phenylephrine/lidocaine was injected into the anterior chamber. The anterior chamber was filled with viscoelastic. A keratome knife was used to construct a 2-plane near-clear corneal tunnel extending 2.0mm into clear cornea superiortemporally. A flap was raised on the anterior capsule and capsulorhexis forceps were used to complete a continuous curvilinear capsulorhexis of 5.5 mm. Balanced salt solution was then used to perform cortical cleaving hydrodissection and nuclear hydrodelineation until the lens could be freely rotated within the capsular bag. The lens nucleus was then disassembled and removed within the capsular bag and iris plane using phacoemulsification. Residual cortical material was removed using the I/A handpiece. The posterior capsule was carefully polished to remove as much residual lens epithelial cells as safely possible. The capsular bag was then inflated and the anterior chamber deepened with viscoelastic. The lens implant described above was inserted into the capsular bag using the ANALI Franklin Injector. A Kuglen hook was used to dial the IOL into position. Residual viscoelastic was then removed first from posterior to the IOL, then from the anterior chamber using the I/A handpiece. The lens implant was noted to center nicely within the capsular bag. The incisions were stromally hydrated, and the anterior chamber was reformed using BSS. Then 0.5cc of moxifloxacin 1.0mg/ml were injected into the capsular bag and anterior chamber. The incisions were checked with a Weck spear and found to be secure. A small Descemet's flap was evident at the main sacral incision, which spontaneously repositioned itself. Several drops of ophthalmic povidone-iodine 5% were then applied to the eye followed by two drops of Imprimis combination prednisolone/moxifloxacin/nepafenac solution. The drapes were removed and a clear plastic protective eye shield was placed over the eye. The patient was then returned to Same Day Surgery in stable condition.
--- NOTE | 2022-01-20 10:00 | W.ANESPOSTOP ---
Postoperative Evaluation Date, Time and Location Date Performed: 01/20/22 Time Performed: 09:50 Patient Location: Day Surgery Unit Vital Signs Most Recent Imported Vital Signs: Most Recent Vital Signs Temp Pulse Resp BP Pulse Ox 36.7 C 75 16 130/72 96 01/20/22 09:39 01/20/22 09:39 01/20/22 09:39 01/20/22 09:39 01/20/22 09:39 Pain Score Most Recent Pain Score: Most Recent Pain Score Pain Level 0 01/20/22 09:39 Assessment Mental Status: Awake (Alert & Oriented to Patient Baseline) Airway and Respiratory Function: Patent airway with normal (patient baseline) respiratory exam Cardiovascular Function: Hemodynamically Stable Hydration Status: Adequately Hydrated Nausea & Vomiting: No Nausea or Vomiting Pain: Pt. Denies Any Pain Peripheral Nerve Block: Patient did not receive a nerve block
== END 2022-01-20 10:04 | disposition home or self-care (01) ==
LOC: SUR 07:23
PROVIDERS: PCP Nurse Practitioner Family; Visit Provider Ophthalmology
PROC: (CPT 66984; principal; 2022-01-20 09:30)
DX: H25.11 Age-related nuclear cataract, right eye (principal)
CPT/HCPCS: 66984; V2632

== ENCOUNTER 2022-02-18 09:43 | Emergency (ER) | payer MEDICARE, SELFPAY ==
[2022-02-18 10:14] VITALS: BP 170/77; PULSE 87; RESP 18; TEMP 36.7; O2SAT 98
--- NOTE | 2022-02-18 10:30 | DI.RAD_ITS ---
Exam(s) XR PORTABLE CHEST AP EXAM: XR PORTABLE CHEST AP CLINICAL HISTORY: cough. TECHNIQUE: 2D digital imaging was performed. COMPARISON: CR CHEST 2 VIEWS PA,LAT from 04/20/2012 FINDINGS: Single AP portable view. Heart size is upper normal. The mediastinum is not widened. Lungs are clear. No infiltrates nor obvious pleural effusions. IMPRESSION: No acute pulmonary findings on this single AP portable view of the chest. DATA REPOSITORY: RADIATION DOSE DELIVERED:
[2022-02-18 11:49] LABS: COVID-19 PCR Negative (Negative); Influenza A PCR Negative (Negative); Influenza B PCR Negative (Negative)
[2022-02-18 11:53] LABS: Source Nasopharynx
--- NOTE | 2022-02-18 11:53 | W.ED.GENAD ---
Discharge Plan Disposition Patient Disposition: HOME Condition: Stable Discharge Details Clinical Impression: RSV bronchitis, Elevated blood pressure reading Primary Care Provider: Alana Quezada ED Provider: Mitchell Barclay Home Meds and New Rx's Prescriptions: New albuterol sulfate 90 mcg/actuation HFA aerosol inhaler 2 puff inhalation Q6H PRNQty: 8.5 0RF Continued aspirin 81 mg tablet,delayed release (DR/EC) 81 mg PO DAILY Qty: 80 0RF potassium chloride 10 mEq tablet extended release 10 meq PO DAILY PreserVision AREDS-2 [id number] lx-jyoz-el-mg capsule 1 tab PO BID (DME) lancets [BD Ultra Fine Lancets] 33 gauge misc See Rx Instructions .ROUTE .MEDSUPPLY Qty: 200 4RF Rx Instructions: Check blood sugar twice a day lisinopril 40 mg tablet 40 mg PO DAILY Qty: 90 4RF Rx Instructions: Take 1 tablet once a day omeprazole 20 mg capsule,delayed release(DR/EC) 20 mg PO QAM Qty: 90 4RF simvastatin 20 mg tablet 20 mg PO DAILY Qty: 90 4RF glipizide 5 mg tablet 5 mg PO BID Qty: 180 4RF Rx Instructions: Take 1 tablet twice a day (DME) blood-glucose meter 1 EACH misc 1 ea Miscellaneous ONCE Qty: 1 Rx Instructions: METER TYPE FREESTYLE LITE DX CODE E11.9 (DME) FreeStyle Lite Strips Strip See Dose Instructions .ROUTE .MEDSUPPLY Qty: 200 4RF Dose Instruction: As directed Rx Instructions: Check blood sugar twice a day amlodipine 10 mg tablet 10 mg PO DAILY Qty: 90 4RF nitrofurantoin monohyd/m-cryst [Macrobid] 100 mg capsule 100 mg PO Q12H 5 Days Qty: 10 0RF Rx Instructions: must administer with a meal/food benzonatate 100 mg capsule 100 - 200 mg PO TID PRN (Reason: cough) Qty: 60 0RF Rx Instructions: Take 1-2 capsules by mouth three times a day as needed for cough Discharge Instructions Instructions: Albuterol (By breathing), Acute Bronchitis (ED) Additional Instructions: Please use albuterol inhaler 2 puffs every 4-6 hours as needed for wheeze. Please drink plenty of fluids and allow for plenty of rest. Please contact your primary care physician to arrange follow-up. Return to the ER immediately for any worsening or new concerning symptoms. Referrals: Alana Quezada NP [Primary Care Provider] - Medical Decision Making 76-year-old female here with productive cough over the past 4 days. Patient is saturating well and in no respiratory distress. She does have some expiratory wheeze and rhonchi on exam. She has associated sinus congestion. Rapid COVID/RSV/influenza testing was performed. COVID and influenza are negative. She is positive for RSV. Plan for supportive care. Patient was provided DuoNeb treatment and reassessed and symptoms did improve. I will prescribe albuterol inhaler for her to use. Usual customary discharge instructions reviewed with the patient. HPI General Date/Time Provider Initiated Documentation: 02/18/22 09:58. Related Data Home Medications Medication Instructions Recorded Confirmed blood-glucose meter #1 ea 08/22/15 02/18/22 aspirin 81 mg tablet,delayed 81 mg PO DAILY #80 tabs 03/04/18 02/18/22 release potassium chloride 10 mEq 10 meq PO DAILY 04/20/19 02/18/22 tablet,extended release vit C 250 mg-vit E 90 mg-zinc 40 1 tab PO BID 04/20/19 02/18/22 mg-copper 1 st-ddbeym-zuufnf capsule (PreserVision AREDS-2) lancets 33 gauge (BD Ultra Fine #200 ea 08/27/20 02/18/22 Lancets) blood sugar diagnostic (FreeStyle #200 ea 08/22/21 02/18/22 Lite Strips) glipizide 5 mg tablet 5 mg PO BID #180 tabs 08/29/21 02/18/22 lisinopril 40 mg tablet 40 mg PO DAILY #90 tabs 08/29/21 02/18/22 omeprazole 20 mg capsule,delayed 20 mg PO QAM #90 tab-caps 08/29/21 02/18/22 release simvastatin 20 mg tablet 20 mg PO DAILY #90 tab-caps 08/29/21 02/18/22 amlodipine 10 mg tablet 10 mg PO DAILY #90 tabs 12/13/21 02/18/22 benzonatate 100 mg capsule 100 - 200 mg PO TID PRN cough #60 02/17/22 02/18/22 caps nitrofurantoin 100 mg PO Q12H 5 days #10 caps 02/17/22 02/18/22 monohydrate/macrocrystals 100 mg capsule (Macrobid) albuterol sulfate 90 mcg/actuation 2 puff inhalation Q6H PRN #8.5 02/18/22 aerosol inhaler grams Previous Rx's Medication Instructions Recorded aspirin 81 mg tablet,delayed 81 mg PO DAILY #80 tabs 03/04/18 release lancets 33 gauge (BD Ultra Fine #200 ea 08/27/20 Lancets) blood sugar diagnostic (FreeStyle #200 ea 08/22/21 Lite Strips) glipizide 5 mg tablet 5 mg PO BID #180 tabs 08/29/21 lisinopril 40 mg tablet 40 mg PO DAILY #90 tabs 08/29/21 omeprazole 20 mg capsule,delayed 20 mg PO QAM #90 tab-caps 08/29/21 release simvastatin 20 mg tablet 20 mg PO DAILY #90 tab-caps 08/29/21 amlodipine 10 mg tablet 10 mg PO DAILY #90 tabs 12/13/21 benzonatate 100 mg capsule 100 - 200 mg PO TID PRN cough #60 02/17/22 caps nitrofurantoin 100 mg PO Q12H 5 days #10 caps 02/17/22 monohydrate/macrocrystals 100 mg capsule (Macrobid) albuterol sulfate 90 mcg/actuation 2 puff inhalation Q6H PRN #8.5 02/18/22 aerosol inhaler grams Allergies Allergy/AdvReac Type Severity Reaction Status Date / Time Iodinated Contrast Media Allergy Severe RASH Verified 02/18/22 10:25 [Iodinated Contrast- Oral and IV Dye] codeine AdvReac Severe PASSES Verified 02/18/22 10:25 OUT, VOMITS morphine AdvReac Severe PASSES Verified 02/18/22 10:25 OUT, VOMITS meperidine AdvReac Unknown Pt reports Verified 02/18/22 10:25 vomiting foam oxycodone AdvReac Unknown vomits Verified 02/18/22 10:25 tramadol AdvReac VOMITING, Verified 02/18/22 10:25 UNABLE TO MOVE NARCOTICS AdvReac VOMITING Uncoded 02/18/22 10:25 General Stated Complaint: RespSymp LORNA: 3 PFSH All Active Problems (Updated 02/18/22 @ 12:18 by Mitchell Barclay MD) RSV bronchitis (Acute) Elevated blood pressure reading (Acute) GERD (gastroesophageal reflux disease) (Chronic) Essential hypertension (Chronic) Hyperlipidemia (Chronic) Type 2 diabetes mellitus (Chronic) Osteoarthritis (Chronic) Medical History (Updated 02/18/22 @ 12:18 by Mitchell Barclay MD) Depressive disorder Surgical History (Updated 01/20/22 @ 09:40 by Filemon Reeves MD) History of arthroplasty of left knee (11/29/12) Left TKA by Dr. Parra at [facility] History of arthroplasty of right knee (06/04/17) Right TKA by Dr. Christianson History of bilateral breast reduction surgery (04/2009) History of knee replacement right knee History of suburethral sling procedure (06/07/07) History of tonsillectomy S/P abdominal hysterectomy (~1979) Ovaries remain. For AUB S/P appendectomy S/P arthroscopy of left knee (09/15/02) Partial medial and lateral meniscectomies S/P cholecystectomy S/P colonoscopy (08/09/18) 2006-normal S/P sacrocolpopexy (04/20/07) Family History Mother , at 84 Metastatic bone cancer mets to breast Breast cancer Hypertension Father , at 87 Heart disease Stroke Lung cancer Hypertension Sister Depression Hyperlipidemia Heart disease Type 2 diabetes mellitus Cancer Sister , at 74 of MVA Hyperlipidemia Hypertension Brother , at 77 Heart disease Type 2 diabetes mellitus Myocardial infarction Asthma Brother , at 68 Heart disease Hyperlipidemia Myocardial infarction Stroke Type 2 diabetes mellitus Brother , at 70 Lung cancer Son , at 18 of MVA No problems noted. Daughter Uterine cancer Hypertension Hyperlipidemia Daughter , at 3wks old of congenital heart defect Congenital heart disease Daughter Asthma Maternal Grandfather No problems noted. Maternal Grandmother Hypertension Heart disease Cancer Paternal Grandfather Asthma Heart disease Stroke Paternal Grandmother Lung cancer Heart disease Stroke Social History (Updated 08/29/21 @ 16:54 by Etta Hidalgo) Smoking/Tobacco Use Status: Never Second Hand Exposure: Yes Smoking risk assessment performed?: Yes Alcohol Intake: current Alcohol Intake frequency: holidays/special occasions only Drug use: Never Substance use type: does not use Details: Pt. reports using CBD on knees about one week ago Caregiver/Support person: No Household members: none Housing: house Communication Needs: Corrective Lenses Pets and animals: Yes Pets and animals: cat(s) and dog(s) Sexually active: No Do you think of yourself as: straight/heterosexual Current gender identity: female What is your relationship status?: How often do you talk on the phone with friends or family?: three or more times per week How often do you get together with friends or relatives?: three or more times per week How often do you attend episcopalian or scientology services?: 4 or more times per year Do you belong to any clubs or organized social groups?: yes Panel score (0-1 are the most socially isolated patients): 3 What type of physical activity do you participate in: walking and weight lifting Duration: 60-90 minutes/day Frequency: 5-6 times per week Mara/Mandaeism: Buddhism Special mara needs: No Seatbelt use: always Helmet use: No Drive intox or ride w/intox cdl dedicated truck driver: No Do you feel safe at home: Yes Do you feel safe in your relationship?: Yes History History 4 Para Hx # Term Pregnancies 4 Multiple births Hx # Pregnancies Ectopic pregnancies AB induced Hx Number of Living Children 2 AB spontaneous Course Vital Signs Vital signs: Vital Signs Temperature 36.7 C 02/18/22 10:14 Pulse 87 02/18/22 10:14 Respiratory Rate 18 02/18/22 10:14 Blood Pressure 170/77 H 02/18/22 10:14 Pulse Oximetry 98 02/18/22 10:14 Temperature 36.7 C 02/18/22 10:14 Temperature Source Oral 02/18/22 10:14 Pulse 87 02/18/22 10:14 Respiratory Rate 18 02/18/22 10:14 Respiratory Effort Non-Labored 02/18/22 10:24 Blood Pressure 170/77 H 02/18/22 10:14 Blood Pressure Position Sitting 02/18/22 10:14 Pulse Oximetry 98 02/18/22 10:14 Oxygen Delivery Method Room Air 02/18/22 10:14 Oxygen Flow Rate 0 02/18/22 10:14 Pain Level 0 02/18/22 10:14
[2022-02-18 11:54] LABS: RSV PCR Positive (Negative)
[2022-02-18 11:58] VITALS: RESP 18; RESP 4; RESP 7; O2SAT 98
[2022-02-18] MEDS: Albuterol/Ipratropium 3 ML UPD VIAL UPD (11:58)
== END 2022-02-18 13:06 | disposition home or self-care (01) ==
PROVIDERS: Emergency Provider Student in an Organized Health Care Education/Training Program; PCP Nurse Practitioner Family
DX: J20.5 Acute bronchitis due to respiratory syncytial virus (principal); I10 Essential (primary) hypertension; Z20.822 Contact with and (suspected) exposure to COVID-19
CPT/HCPCS: 87637; 94640; 99283; 71045; J7620

== ENCOUNTER 2022-03-19 10:52 | Outpatient (CLI) | payer MEDICARE, SELFPAY ==
[2022-03-19 12:27] LABS: Anion Gap 6.8 mmol/L (3-11); BUN 14 mg/dL (7-18); CO2 30.2 mmol/L (21.0-32.0); CREATININE 0.8 mg/dL (0.55-1.02); Calcium 9.7 mg/dL (8.5-10.1); Chloride 104 mmol/L (98-107); Estimated GFR 75.84 (mL/min/1.73m2); Glucose 142 mg/dL (74-106); Potassium 3.8 mmol/L (3.5-5.1); Sodium 141 mmol/L (136-145)
[2022-03-19 12:29] LABS: Hemoglobin A1C 7.2 % (<5.7)
== END 2022-03-19 10:53 | disposition home or self-care (01) ==
LOC: LOS 10:53
PROVIDERS: PCP Nurse Practitioner Family; Visit Provider Nurse Practitioner Family
DX: E11.9 Type 2 diabetes mellitus without complications (principal)
CPT/HCPCS: 36415; 80048; 83036

== ENCOUNTER 2022-04-09 03:15 | Outpatient (CLI) | payer MEDICARE, SELFPAY ==
--- NOTE | 2022-04-09 07:30 | DI.RAD_ITS ---
Exam(s) XR FOREARM RT EXAM: XR FOREARM RT CLINICAL HISTORY: suspected foreign body in right forearm,M79.611, RT FOREARM PAIN,S50.851A. TECHNIQUE: 2D digital imaging was performed. Two views. COMPARISON: No exams were available for comparison FINDINGS: BONES: No acute fracture is present. No bony destructive lesion is seen. Degenerative changes noted i n the the 1st carpal metacarpal joint. Elbow unremarkable.. SOFT TISSUE: Focal swelling lateral to the radius. No radiopaque foreign body visible. IMPRESSION: No visible foreign body. DATA REPOSITORY: RADIATION DOSE DELIVERED:
== END 2022-04-09 03:35 ==
LOC: DI 03:15
PROVIDERS: PCP Nurse Practitioner Family; Visit Provider Nurse Practitioner Family
DX: M79.631 Pain in right forearm (principal); M18.11 Unilateral primary osteoarthritis of first carpometacarpal joint, right hand
CPT/HCPCS: 73090

== ENCOUNTER 2022-07-04 14:36 | Outpatient (REF) | payer MEDICARE, SELFPAY ==
[2022-07-04 21:04] LABS: COMMENT (LAB VIEW ONLY) 37.26 mg/dL; Microalb ug/mg Crea 57.7 ug/mg Cr
== END 2022-07-04 14:37 | disposition home or self-care (01) ==
LOC: LBN 14:36
PROVIDERS: PCP Nurse Practitioner Family; Visit Provider Nurse Practitioner Family
DX: E11.9 Type 2 diabetes mellitus without complications (principal)
CPT/HCPCS: 82043; 82570

== ENCOUNTER 2022-07-21 09:43 | Day surgery (SDC) | payer MEDICARE, SELFPAY ==
[2022-07-21] MEDS: Tropicam./Phenyleph. (1/2.5%) 5 ML BTL OS ×3 (10:24→10:36)
[2022-07-21 10:25] VITALS: BP 136/71; PULSE 81; RESP 18; TEMP 36.1; O2SAT 98
--- NOTE | 2022-07-21 10:31 | W.ANESPRE ---
General Info Date of Service Date Performed: 07/21/22 Height: 5 ft 2 in Weight: 71.9 kg Body Mass Index (BMI): 29.0 Surgical Procedure: Operation Date: 07/21/22 12:40 Proposed Procedure Side Surgeon p Cataract Extraction with IOL Implant Left Filemon Reeves MD Meds Allergies and Home Medications Allergies Allergy/AdvReac Type Severity Reaction Status Date / Time Iodinated Contrast Media Allergy Severe RASH Verified 07/21/22 10:14 [Iodinated Contrast- Oral and IV Dye] codeine AdvReac Severe PASSES Verified 07/21/22 10:14 OUT, VOMITS morphine AdvReac Severe PASSES Verified 07/21/22 10:14 OUT, VOMITS nitrofurantoin AdvReac Intermediate severe Verified 07/21/22 10:14 vomiting and vertigo meperidine AdvReac Unknown Pt reports Verified 07/21/22 10:14 vomiting foam oxycodone AdvReac Unknown vomits Verified 07/21/22 10:14 tramadol AdvReac VOMITING, Verified 07/21/22 10:14 UNABLE TO MOVE NARCOTICS AdvReac VOMITING Uncoded 07/21/22 10:14 Home Medication Medication Instructions Recorded blood-glucose meter #1 ea 08/22/15 aspirin 81 mg tablet,delayed 81 mg PO DAILY #80 tabs 03/04/18 release vit C 250 mg-vit E 90 mg-zinc 40 1 tab PO BID 04/20/19 mg-copper 1 mu-gkekbl-xfxuid capsule (PreserVision AREDS-2) glipizide 5 mg tablet 5 mg PO BID #180 tabs 08/29/21 albuterol sulfate 90 mcg/actuation 2 puff inhalation Q6H PRN #8.5 02/18/22 aerosol inhaler grams meclizine 12.5 mg tablet 12.5 mg PO TID PRN dizziness #30 03/04/22 tabs blood sugar diagnostic (FreeStyle #200 ea 07/04/22 Lite Strips) lancets 33 gauge (BD Ultra Fine #200 ea 07/04/22 Lancets) lisinopril 40 mg tablet 40 mg PO DAILY #90 tabs 07/04/22 omeprazole 20 mg capsule,delayed 20 mg PO QAM #90 tab-caps 07/04/22 release simvastatin 20 mg tablet 20 mg PO DAILY #90 tab-caps 07/04/22 amlodipine 10 mg tablet 10 mg PO HS 07/21/22 Current Visit Medications: Current Medications Generic Name Dose Route Start Last Admin Trade Name Freq PRN Reason Stop Dose Admin Acetaminophen 1,000 mg 07/19/22 06:00 Acetaminophen 500 Mg Tab PO Q4H PRN PRN Miscellaneous Medication 0 ml 07/19/22 06:00 07/21/22 10:24 Tropicam./Phenyleph. (1/2.5%) 5 Ml Btl OS 1 drp DIRECTED APPLE Administration Miscellaneous Medication 0 ml 07/19/22 06:00 Prednisolone 1%, Moxifloxacin 0.5%, Nepafenac 0.1% 5ml Btl OS DIRECTED APPLE Tetracaine HCl 0 ml 07/19/22 06:00 Tetracaine 0.5% 4 Ml Btl OS DIRECTED APPLE PFSH Active Problems Active Problems: Problem Status Onset Code GERD (gastroesophageal reflux disease) Essential hypertension I10 Hyperlipidemia E78.5 Type 2 diabetes mellitus E11.9 Osteoarthritis M19.90 Umbilical hernia K42.9 Tubular adenoma of colon ~08/2018 D12.6 Vertigo R42 Bilateral hearing loss H91.93 Recurrent UTI N39.0 Nuclear age-related cataract, left eye H25.12 Cortical age-related cataract, left eye H25.012 Medical History Medical History (Updated 07/21/22 @ 10:13 by Yadi Neely) COVID-19 Depressive disorder Surgical History Surgical History History of arthroplasty of left knee (11/29/12) Left TKA by Dr. Parra at [facility] History of arthroplasty of right knee (06/04/17) Right TKA by Dr. Christianson History of bilateral breast reduction surgery (04/2009) History of knee replacement right knee History of suburethral sling procedure (06/07/07) History of tonsillectomy Hx of cataract surgery S/P abdominal hysterectomy (~1979) Ovaries remain. For AUB S/P appendectomy S/P arthroscopy of left knee (09/15/02) Partial medial and lateral meniscectomies S/P cholecystectomy S/P colonoscopy (08/09/18) 2006-normal S/P sacrocolpopexy (04/20/07) Tobacco Smoking/Tobacco Use Status: Never Passive smoking exposure: Yes Second hand exposure: Yes Alcohol Alcohol Intake: current Alcohol intake frequency: holidays/special occasions only Substance Use Substance use: Never Substance use type: does not use Details: Pt. reports using CBD on knees about one week ago Prental History History 4 Para Hx # Term Pregnancies 4 Multiple births Hx # Pregnancies Ectopic pregnancies AB induced Hx Number of Living Children 2 AB spontaneous Vital Signs and Lab Results Lab Results Blood Type / Crossmatch: No Data to Display Complete Blood Count: No Data to Display Complete Metabolic Panel: Hemoglobin A1c 6.4 % (4.5-5.7) H 07/04/22 13:24 Liver Function Panel: No Data to Display Coagulation Panel: No Data to Display Cardiac Panel: No Data to Display Arterial Blood Gas: No Data to Display Venous Blood Gas: No Data to Display Pancreas Panel: No Data to Display Thyroid Panel: No Data to Display Infectious Disease: No Data to Display Blood Cultures: No Data to Display Toxicology Panel: No Data to Display Anesthesia Assessment and Plan Anesthesia History Personal History: No History of Anesthesia Complications Family History: No Family History of Anesthesia Complications Exercise Tolerance Exercise Tolerance: Metabolic Equivalents>4 Cardiac & Pulmonary Exam Cardiac Exam: Normal S1/S2 Heart Sounds Pulmonary Exam: Clear Bilateral Breath Sounds Implantable Cardiac Device Does patient have a Pacemaker or an ICD?: No Airway Exam Known Difficult Airway: No Mallampati Class: 2 Mouth Opening: Normal (> 3cm) Thyromental Distance: Greater than 3 cm Neck Range of Motion: Full ROM Neck Circumference: Normal Teeth Condition: Removable Dentures/Plates Upper ASA Classification ASA Score: ASA 2 Emergency Case?: No NPO Status NPO Status: NPO Clears >2 hours, Solids >8 hours Anesthesia Plan Resuscitation Status: Full Code Anesthesia Technique: MAC Anesthesia Airway Planned: Natural Airway Monitors Used: Standard Monitors
[2022-07-21 10:41] VITALS: BMI 29.0
[2022-07-21] MEDS: Tetracaine 0.5% 4 ML BTL OS (10:47)
[2022-07-21] MEDS: Balanced Salt Soln.-PLUS 500 ML BAG (10:55)
[2022-07-21] MEDS: Lidocaine 1% Pres-Free 5 ML VIAL (10:56)
[2022-07-21] MEDS: Duovisc Viscoelastic System EACH 1 EACH (10:56)
[2022-07-21] MEDS: Phenylephrine/Lidocaine (15/10) MG/ML 1 ML VIAL (10:57)
[2022-07-21] MEDS: Povidone-Iodine Ophth 30 ML BTL (10:57)
[2022-07-21 11:15] VITALS: BP 118/75; PULSE 80; RESP 18; TEMP 36.6; O2SAT 98
--- NOTE | 2022-07-21 11:15 | W.PM.DSUDISC ---
Date of service: 07/21/22 Time of Service: 11:16 Discharge Plan Disposition Patient Disposition: Home Discharge Details Attending Provider: Filemon Reeves Primary Care Provider: Alana Quezada Meds and New Rx's Prescriptions: No Action (DME) FreeStyle Lite Strips Strip See Dose Instructions .ROUTE .MEDSUPPLY Qty: 200 4RF Dose Instruction: As directed Rx Instructions: Check blood sugar twice a day (DME) lancets [BD Ultra Fine Lancets] 33 gauge misc See Rx Instructions .ROUTE .MEDSUPPLY Qty: 200 4RF Rx Instructions: Check blood sugar twice a day lisinopril 40 mg tablet 40 mg PO DAILY Qty: 90 3RF Rx Instructions: Take 1 tablet once a day omeprazole 20 mg capsule,delayed release(DR/EC) 20 mg PO QAM Qty: 90 3RF simvastatin 20 mg tablet 20 mg PO DAILY Qty: 90 3RF aspirin 81 mg tablet,delayed release (DR/EC) 81 mg PO DAILY Qty: 80 0RF PreserVision AREDS-2 [id number] lt-mksi-wk-mg capsule 1 tab PO BID glipizide 5 mg tablet 5 mg PO BID Qty: 180 4RF Rx Instructions: Take 1 tablet twice a day (DME) blood-glucose meter 1 EACH misc 1 ea Miscellaneous ONCE Qty: 1 Rx Instructions: METER TYPE FREESTYLE LITE DX CODE E11.9 meclizine 12.5 mg tablet 12.5 mg PO TID PRN (Reason: dizziness) Qty: 30 0RF Rx Instructions: stop your potassium pills while taking this med amlodipine 10 mg tablet 10 mg PO HS albuterol sulfate 90 mcg/actuation HFA aerosol inhaler 2 puff inhalation Q6H PRNQty: 8.5 0RF Discharge Instructions Stand Alone Forms: Post-op Topical Cataract, Arnaud Warren (DSU) Discharge Orders Discharge Orders: Discharge Order (Routine); Ordered 07/21/22 Ordered By: Filemon Reeves DS: Diagnosis Discharge Diagnosis (1) Nuclear age-related cataract, left eye: Status: Resolved (2) Cortical age-related cataract, left eye: Status: Resolved
--- NOTE | 2022-07-21 11:17 | W.PM.OP ---
Date of service: 07/21/22 Time of Service: 11:17 Operative Note Operative Note DATE OF PROCEDURE: 07/21/22 PRE-OP DIAGNOSIS: Nuclear/cortical cataract, left eye POST-OP DIAGNOSIS: same PROCEDURE: Cataract extraction using phacoemulsification with intraocular lens implant, left eye SURGEON: Filemon Reeves ANESTHESIA TYPE: Local By Surgeon and MAC Refer to Anesthesia Record PATHOLOGY: none sent COMPLICATIONS: None Patient was transported to: same day Patient's condition: stable Implants: Shorty and Shorty Tecnis Eyhance [id number] Indications: Progressive decreased vision due to cataract, left eye Procedure Description: CATARACT SURGERY OPERATIVE REPORT PREOPERATIVE DIAGNOSIS: 1. Nuclear/cortical cataract, left eye POSTOPERATIVE DIAGNOSIS: Same OPERATION: 1. Cataract extraction using phacoemulsification with posterior chamber intraocular lens implant, left eye. IOL: IOL Ammonium Nitrate Crystallizer/Model: Shorty & Shorty Tecnis Eyhance DIB00 IOL Power: + 17.0 diopters IOL Serial Number: [id number] Optic Diameter: 6.0 mm Haptic/Overall Diameter: 13.0 mm PHACO INFO: DinoPipelineRx Vision System with OZil and Active Fluidics Cumulative Dispersed Energy (CDE): 10.89 seconds SURGEON: Filemon Reeves MD, AARON ANESTHESIA: Monitored A [facility] (MAC), with local sub-tenon's anesthetic infiltration COMPLICATIONS: None SPECIMENS: None INDICATIONS FOR PROCEDURE: The patient is a 76-year-old lady with history of diminished visual acuity in her left eye secondary to the development of nuclear/cortical cataract. She is significantly symptomatic that she desires cataract surgery and attempt to improve and maximize her vision. The option of cataract surgery was offered to the patient and she wished to proceed. PROCEDURE: The correct surgical eye was identified and marked as the left eye and the pupil was dilated in the preoperative area using mydriatics and cycloplegics. The dilated pupil size was 6.0 mm. The patient elected to proceed without oral sedation. The patient was brought to the operating room where cardiopulmonary monitoring was instituted and surgical time-out was performed, confirming the correct operative eye and IOL power. Topical anesthesia was administered and ophthalmic povidone-iodine 5% was instilled into the conjunctival fornices. Lidocaine gel was applied to the cornea and the gayle-ocular area was prepped with Betadine 10% solution and draped in the usual sterile fashion for intraocular surgery, including an aperture drape. A Tegaderm transparent film dressing was cut in half and used to cover the lashes and lid margins. Care was taken to sequester the lashes and lid margins under the Tegaderm dressing. A lid speculum was placed between the lids of the operative eye and the Dino LuxOR Revalia operating microscope was maneuvered into position. Liv scissors were then used to make a conjunctival buttonhole approximately 6mm posterior to the limbus in the inferonasal quadrant. Blunt dissection was carried out to expose bare sclera, and a blunt-tipped sub-tenon?s anesthesia cannula was introduced and passed posteriorly along the globe where non-preserved plain lidocaine was injected into posterior sub-Tenon?s space. A sideport knife was used to make a paracentesis port superiorly/superiortemporally. Intraocular phenylephrine/lidocaine was injected int the anterior chamber.. The anterior chamber was filled with viscoelastic. A keratome knife was used to construct a 2-plane near-clear corneal tunnel extending 2.0mm into clear cornea temporally. A flap was raised on the anterior capsule and capsulorhexis forceps were used to complete a continuous curvilinear capsulorhexis of 5.0 mm. Balanced salt solution was then used to perform cortical cleaving hydrodissection and nuclear hydrodelineation until the lens could be freely rotated within the capsular bag. The lens nucleus was then disassembled and removed within the capsular bag and iris plane using phacoemulsification. Residual cortical material was removed using the 45-degree angled silicone I/A tip with 0.3mm port. The posterior capsule was carefully polished to remove as much residual lens epithelial cells as safely possible. The capsular bag was then inflated and the anterior chamber deepened with viscoelastic. The lens implant described above was inserted into the capsular bag using the Shorty and Shorty Simplicity pre-loaded injector. . A Kuglen hook was used to dial the IOL into position. Residual viscoelastic was then removed first from posterior to the IOL, then from the anterior chamber using the I/A handpiece. The lens implant was noted to center nicely within the capsular bag. The incisions were stromally hydrated, and the anterior chamber was reformed using BSS. Then 0.5cc of moxifloxacin 1.0mg/ml were injected into the capsular bag and anterior chamber. The incisions were checked with a Weck spear and found to be secure. Several drops of ophthalmic povidone-iodine 5% were then applied to the eye followed by two drops of Imprimis combination prednisolone/moxifloxacin/nepafenac solution. The drapes were removed and a clear plastic protective eye shield was placed over the eye. The patient was then returned to Same Day Surgery in stable condition.
--- NOTE | 2022-07-21 12:01 | W.ANESPOSTOP ---
Postoperative Evaluation Date, Time and Location Date Performed: 07/21/22 Time Performed: 11:20 Patient Location: Day Surgery Unit Vital Signs Most Recent Imported Vital Signs: Most Recent Vital Signs Temp Pulse Resp BP Pulse Ox 36.6 C 80 18 118/75 98 07/21/22 11:15 07/21/22 11:15 07/21/22 11:15 07/21/22 11:15 07/21/22 11:15 Pain Score Most Recent Pain Score: Most Recent Pain Score Pain Level 0 07/21/22 11:15 Assessment Mental Status: Awake (Alert & Oriented to Patient Baseline) Airway and Respiratory Function: Patent airway with normal (patient baseline) respiratory exam Cardiovascular Function: Hemodynamically Stable Hydration Status: Adequately Hydrated Nausea & Vomiting: No Nausea or Vomiting Pain: Pt. Denies Any Pain Peripheral Nerve Block: Patient did not receive a nerve block
== END 2022-07-21 11:34 | disposition home or self-care (01) ==
LOC: SUR 09:43
PROVIDERS: PCP Nurse Practitioner Family; Visit Provider Ophthalmology
PROC: (CPT 66984; principal; 2022-07-21 12:30)
DX: H25.12 Age-related nuclear cataract, left eye (principal); H25.012 Cortical age-related cataract, left eye; E11.9 Type 2 diabetes mellitus without complications; I10 Essential (primary) hypertension; K21.00 Gastro-esophageal reflux disease with esophagitis, without bleeding
CPT/HCPCS: 66984; V2632

== ENCOUNTER 2022-10-15 01:22 | Outpatient (CLI) | payer MEDICARE, SELFPAY ==
--- NOTE | 2022-10-15 07:14 | DI.US_ITS ---
Exam(s) US RENAL EXAM: US RENAL CLINICAL HISTORY: recurrent UTI, assess for stone,n39.0 TECHNIQUE: Ultrasound of both kidneys performed using standard protocol. COMPARISON: US US PELVIS TRANSVAGINAL from 11/25/2019 FINDINGS: RIGHT KIDNEY: Measures 8.4 cm in length. No cysts evident. Normal cortical thickness and corticomedullary different iation .No solid masses No intrarenal calculi nor hydronephrosis. LEFT KIDNEY: Measures 8.1 cm in length. No cysts evident. Normal cortical thickness and corticomedullary differen tiaion. Previously described hyperechoic region in the inferior pole is again noted consistent with probable benign angiomyolipoma.. No intrarenal calculi nor hydonephrosis. URINARY BLADDER: Prevoid volume is 158 cc Postvoid volume is 97 cc No evidence of bladder mass nor diverticuli. Ureterovesical jets: Both identified IMPRESSION: 1. No significant new ultrasound findings in the kidneys. 2. Increased postvoid residual volume evident in the urinary bladder (97 cc) 3. 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 DATA REPOSITORY:
== END 2022-10-15 01:42 ==
LOC: DI 01:22
PROVIDERS: PCP Nurse Practitioner Family; Visit Provider Nurse Practitioner Family
DX: N39.0 Urinary tract infection, site not specified (principal)
CPT/HCPCS: 76770

== ENCOUNTER 2022-11-07 00:47 | Outpatient (CLI) | payer MEDICARE, SELFPAY ==
--- NOTE | 2022-11-07 10:26 | DI.DEXA_ITS ---
Exam(s) XR DEXA BONE DENSITY W/WO JAKE EXAM: XR DEXA BONE DENSITY W/WO JAKE CLINICAL HISTORY: osteoporosis screening, POSTMENOPAUSAL STATUS, Z78.0 TECHNIQUE: Holodrchrono C densitometer analysis of left hip, lumbar spine and left forearm. Lat eral survey image of the thoracic and lumbar spine. COMPARISON: Two thousand eight FINDINGS: Lateral view of the thoracic and lumbar spine shows no evidence of compression fractures. Bone mineral density measurements of the lumbar spine correspond to a total T-score of -0.3, in the n ormal range. This represents a 5.8 percent increase when compared the previous exam. The increase in bone density could in part be secondary to increasing degenerative disc changes and endplate scler osis. Bone mineral density measurements of the left hip correspond to a total T-score of -1.6. The femora l neck T-score is -1.3, in the osteopenic range. This represents a 13.5 percent decrease compared w 2007.. Theright forearm bone mineral density measurements correspond to a T-score of the distal 3rd of -2.2 , in the osteopenic range. The right forearm was not analyzed on the previous exam. IMPRESSION: Normal bone mineral density of the lumbar spine. Osteopenia of the left hip and forearm.
== END 2022-11-07 01:07 ==
LOC: DI 00:49
PROVIDERS: PCP Nurse Practitioner Family; Visit Provider Nurse Practitioner Family
DX: Z78.0 Asymptomatic menopausal state (principal); Z13.820 Encounter for screening for osteoporosis
CPT/HCPCS: 77080

== ENCOUNTER 2022-12-26 08:20 | Outpatient (CLI) | payer MEDICARE, SELFPAY ==
--- NOTE | 2022-12-26 08:15 | DI.RAD_ITS ---
Exam(s) XR HAND LT COMPLETE EXAM: XR HAND LT COMPLETE CLINICAL HISTORY: left hand pain. TECHNIQUE: 2D digital imaging was performed. Three views. COMPARISON: No exams were available for comparison FINDINGS: BONES: No acute fracture is present. No bony destructive lesion is seen. JOINTS: No dislocation present. Degenerative changes noted in the interphalangeal joints of the fin gers, greater distally. Degenerative changes also present at the 1st carpal metacarpal joint. SOFT TISSUE: Normal. IMPRESSION: Degenerative changes of the interphalangeal joints and 1st carpal metacarpal joint. DATA REPOSITORY: RADIATION DOSE DELIVERED:
--- NOTE | 2022-12-26 08:15 | DI.RAD_ITS ---
Exam(s) XR SHOULDER RT COMPLETE 2+V EXAM: XR SHOULDER RT COMPLETE 2+V CLINICAL HISTORY: right shoulder pain. TECHNIQUE: 2D digital imaging was performed. Five views. COMPARISON: CR LEFT SHOULDER COMPLETE from 05/11/2017 FINDINGS: BONES: No acute fracture is present. No bony destructive lesion is seen. JOINTS: No dislocation present. Mild spurring at the AC joint and undersurface of the acromion. Min imal spurring at the great glenoid and humeral head SOFT TISSUE: Normal. IMPRESSION: Mild degenerative changes. DATA REPOSITORY: RADIATION DOSE DELIVERED:
== END 2022-12-26 08:21 | disposition home or self-care (01) ==
LOC: DIORS 08:20
PROVIDERS: PCP Nurse Practitioner Family; Referring Provider Nurse Practitioner Family; Visit Provider Student in an Organized Health Care Education/Training Program
DX: M75.51 Bursitis of right shoulder; M75.81 Other shoulder lesions, right shoulder; G56.02 Carpal tunnel syndrome, left upper limb
CPT/HCPCS: 20610; 99213; 73030; 73130; J1040

== ENCOUNTER 2023-02-11 09:24 | Day surgery (SDC) | payer MEDICARE, SELFPAY ==
[2023-02-11 09:26] VITALS: BP 142/64; PULSE 98; RESP 16; TEMP 36.7; O2SAT 98
--- NOTE | 2023-02-11 09:54 | W.PM.DSUDISC ---
Date of service: 02/11/23 Time of Service: 09:54 Discharge Plan Disposition Patient Disposition: Home Condition: Good Discharge Details Reason For Visit: L ECTR/mass excision Attending Provider: Ulises Christianson Primary Care Provider: Alana Quezada [place] Meds and New Rx's Prescriptions: New acetaminophen 500 mg tablet 1,000 mg PO TID Qty: 90 0RF ibuprofen 600 mg tablet 600 mg PO TID PRN (Reason: pain) Qty: 90 0RF Continued (DME) lancets [BD Ultra Fine Lancets] 33 gauge misc See Rx Instructions .ROUTE .MEDSUPPLY Qty: 200 4RF Rx Instructions: Check blood sugar twice a day lisinopril 40 mg tablet 40 mg PO DAILY Qty: 90 3RF Rx Instructions: Take 1 tablet once a day omeprazole 20 mg capsule,delayed release(DR/EC) 20 mg PO QAM Qty: 90 3RF simvastatin 20 mg tablet 20 mg PO DAILY Qty: 90 3RF ketoconazole 2 % cream 1 applic topical DAILY 90 Days Qty: 60 0RF Rx Instructions: Apply to toenails once daily aspirin 81 mg tablet,delayed release (DR/EC) 81 mg PO DAILY Qty: 80 0RF PreserVision AREDS-2 [id number] iz-tktw-ic-mg capsule 1 tab PO BID glipizide 5 mg tablet 5 mg PO DAILY Qty: 90 3RF Rx Instructions: Take 1 tablet once a day amlodipine 10 mg tablet 10 mg PO QHS Qty: 90 3RF (DME) blood-glucose meter 1 EACH misc 1 ea Miscellaneous ONCE Qty: 1 Rx Instructions: METER TYPE FREESTYLE LITE DX CODE E11.9 meclizine 12.5 mg tablet 12.5 mg PO TID PRN (Reason: dizziness) Qty: 30 0RF Rx Instructions: stop your potassium pills while taking this med (DME) FreeStyle Lite Strips Strip See Dose Instructions .ROUTE .MEDSUPPLY Qty: 200 4RF Dose Instruction: As directed Rx Instructions: Check blood sugar twice a day cephalexin 500 mg capsule 500 mg PO Q6H Qty: 28 0RF Rx Instructions: 1 tablet every 6 hours (four times a day) for 7 days cephalexin 250 mg capsule 250 mg PO DAILY Qty: 90 1RF albuterol sulfate 90 mcg/actuation HFA aerosol inhaler 2 puff inhalation Q6H PRNQty: 8.5 0RF Discontinued acetaminophen 325 mg capsule 325 mg PO ONCE PRN Discharge Instructions Stand Alone Forms: Meghan Pitt Tunnel Release Referrals: Ulises Christianson MD [ [facility] STAFF PHYSICIAN] - Activity:: Activity as Tolerated Remove Dressings/Wound Care:: 48 hours Shower/Bathe:: 48 hours Diet:: As Tolerated Discharge Orders Discharge Orders: Discharge Order (Routine); Ordered 02/11/23 Ordered By: Howard Philip DS: Diagnosis Discharge Diagnosis (1) Left carpal tunnel syndrome: Status: Acute
[2023-02-11] MEDS: Lactated Ringers 1,000 ML 80 ML IV (10:31)
--- NOTE | 2023-02-11 10:51 | HPE_ITS ---
Assessment and Plan Assessment and plan (1) Left carpal tunnel syndrome: Status: Acute (2) Subcutaneous mass of left thumb: Status: Acute (3) Tendinitis of left rotator cuff: Status: Acute Assessment and plan: Suha is a 77-year-old female who has carpal tunnel syndrome of the left side along with subcutaneous mass about the left first webspace and ongoing left shoulder symptoms. At this point, I have offered a carpal tunnel release with excision of subcutaneous masses about the left hand. Additionally, I did did offer an injection of the subacromial space of the left shoulder per her request. I reviewed each of these with her. I discussed the risk to include bleeding, infection, pain, stiffness, damage to nerves and vessels, continued symptoms, recurrence, need for repeat procedures. Despite these risk, she elects to proceed. History of Present Illness Narrative: Suha is a 77-year-old who has a mass about the thenar webspace of the left hand. In addition she has ongoing numbness and tingling and worsening weakness about the left hand consistent with carpal tunnel. Please see the previous office note. Additionally, she has had some worsening left shoulder pain. She has a history of bursitis and rotator cuff tendinitis on the right side status post recent injection which is doing well. Unfortunately she has pain of the left shoulder which is relatively new although she reports having this in the past and has received injections. The pain is over the lateral aspect of the left shoulder primarily. It is worsened with activity away from her body. It hurts at nighttime. No trauma. No acute weakness except for pain. She has had no changes to her health. No chest pain or shortness of breath. Review of Systems All systems reviewed & are unremarkable except as noted in HPI and below PFSH All Active Problems (Updated 02/11/23 @ 10:54 by Ulises Christianson MD) Tendinitis of left rotator cuff (Acute) Digital fibrokeratoma, acquired (Acute) Ingrown toenail of right foot (Acute) Diabetes mellitus with autonomic neuropathy (Acute) Onychomycosis (Acute) Plantar verruca (Acute) Subcutaneous mass of left thumb (Acute) Left carpal tunnel syndrome (Acute) Right rotator cuff tendonitis (Acute) Bursitis of right shoulder (Acute) DEPO MEDROL 12/26/22 Osteopenia (Acute) Recurrent UTI (Chronic) Bilateral hearing loss (Chronic) Vertigo (Chronic) Tubular adenoma of colon (Chronic ~08/2018) Umbilical hernia (Chronic) Osteoarthritis (Chronic) Type 2 diabetes mellitus (Chronic) Hyperlipidemia (Chronic) Essential hypertension (Chronic) GERD (gastroesophageal reflux disease) (Chronic) Medical History COVID-19 Depressive disorder Surgical History Hx of cataract surgery History of knee replacement right knee S/P sacrocolpopexy (04/20/07) History of suburethral sling procedure (06/07/07) S/P abdominal hysterectomy (~1979) Ovaries remain. For AUB S/P cholecystectomy S/P appendectomy History of bilateral breast reduction surgery (04/2009) History of tonsillectomy S/P colonoscopy (08/09/18) 2006-normal History of arthroplasty of right knee (06/04/17) Right TKA by Dr. Christianson History of arthroplasty of left knee (11/29/12) Left TKA by Dr. Parra at [facility] S/P arthroscopy of left knee (09/15/02) Partial medial and lateral meniscectomies Family History Mother , at 84 Metastatic bone cancer mets to breast Breast cancer Hypertension Father , at 87 Heart disease Stroke Lung cancer Hypertension Sister Depression Hyperlipidemia Heart disease Type 2 diabetes mellitus Cancer Sister , at 74 of MVA Hyperlipidemia Hypertension Brother , at 77 Heart disease Type 2 diabetes mellitus Myocardial infarction Asthma Brother , at 68 Heart disease Hyperlipidemia Myocardial infarction Stroke Type 2 diabetes mellitus Brother , at 70 Lung cancer Son , at 18 of MVA No problems noted. Daughter Uterine cancer Hypertension Hyperlipidemia Daughter , at 3wks old of congenital heart defect Congenital heart disease Daughter Asthma Maternal Grandfather No problems noted. Maternal Grandmother Hypertension Heart disease Cancer Paternal Grandfather Asthma Heart disease Stroke Paternal Grandmother Lung cancer Heart disease Stroke Social History Smoking/Tobacco Use Status: Never Second Hand Exposure: Yes Smoking risk assessment performed?: Yes Alcohol Intake: never Drug use: Never Substance use type: does not use Caregiver/Support person: No Household members: none Housing: house Communication Needs: Hard of Hearing and Corrective Lenses Pets and animals: Yes Pets and animals: cat(s) and dog(s) Sexually active: No Do you think of yourself as: straight/heterosexual Current gender identity: female What is your relationship status?: How often do you talk on the phone with friends or family?: three or more times per week How often do you get together with friends or relatives?: three or more times per week How often do you attend adventist or anabaptist services?: 4 or more times per year Do you belong to any clubs or organized social groups?: yes Panel score (0-1 are the most socially isolated patients): 3 What type of physical activity do you participate in: walking and weight lifting Duration: 60-90 minutes/day Frequency: 5-6 times per week Mara/Restoration: Religion Special mara needs: No Seatbelt use: always Helmet use: No Drive intox or ride w/intox paratransit driver: No Do you feel safe at home: Yes Do you feel safe in your relationship?: Yes History History 4 Para Hx # Term Pregnancies 4 Multiple births Hx # Pregnancies Ectopic pregnancies AB induced Hx Number of Living Children 2 AB spontaneous Meds Allergies and Home Medications Allergies Allergy/AdvReac Type Severity Reaction Status Date / Time Iodinated Contrast Media Allergy Severe RASH Verified 02/10/23 12:06 [Iodinated Contrast- Oral and IV Dye] codeine AdvReac Severe PASSES Verified 02/10/23 12:06 OUT, VOMITS morphine AdvReac Severe PASSES Verified 02/10/23 12:06 OUT, VOMITS nitrofurantoin AdvReac Intermediate severe Verified 02/10/23 12:06 vomiting and vertigo meperidine AdvReac Unknown Pt reports Verified 02/10/23 12:06 vomiting foam oxycodone AdvReac Unknown vomits Verified 02/10/23 12:06 tramadol AdvReac VOMITING, Verified 02/10/23 12:06 UNABLE TO MOVE NARCOTICS AdvReac VOMITING Uncoded 02/10/23 12:06 Home Medications Medication Instructions Recorded Confirmed Type blood-glucose meter #1 ea 08/22/15 01/14/23 History aspirin 81 mg tablet,delayed 81 mg PO DAILY #80 tabs 03/04/18 02/11/23 Rx release vit C 250 mg-vit E 90 mg-zinc 40 1 tab PO BID 04/20/19 02/11/23 History mg-copper 1 [id number]-rtkvec capsule (PreserVision AREDS-2) albuterol sulfate 90 mcg/actuation 2 puff inhalation Q6H PRN #8.5 02/18/22 02/11/23 Rx aerosol inhaler grams meclizine 12.5 mg tablet 12.5 mg PO TID PRN dizziness #30 03/04/22 02/11/23 Rx tabs lancets 33 gauge (BD Ultra Fine #200 ea 07/04/22 01/14/23 Rx Lancets) lisinopril 40 mg tablet 40 mg PO DAILY #90 tabs 07/04/22 02/11/23 Rx omeprazole 20 mg capsule,delayed 20 mg PO QAM #90 tab-caps 07/04/22 02/11/23 Rx release simvastatin 20 mg tablet 20 mg PO DAILY #90 tab-caps 07/04/22 02/11/23 Rx amlodipine 10 mg tablet 10 mg PO QHS #90 tabs 09/03/22 02/11/23 Rx glipizide 5 mg tablet 5 mg PO DAILY #90 tabs 09/03/22 02/11/23 Rx blood sugar diagnostic (FreeStyle #200 ea 09/08/22 01/14/23 Rx Lite Strips) ketoconazole 2 % topical cream 1 applic topical DAILY 3 months 12/31/22 02/11/23 Rx #60 grams cephalexin 500 mg capsule 500 mg PO Q6H #28 tab-caps 01/30/23 02/11/23 Rx cephalexin 250 mg capsule 250 mg PO DAILY #90 caps 02/10/23 02/11/23 Rx acetaminophen 500 mg tablet 1,000 mg (2 x 500 mg) PO TID #90 02/11/23 Rx tabs ibuprofen 600 mg tablet 600 mg PO TID PRN pain #90 tabs 02/11/23 Rx Exam Const General: cooperative, healthy appearing, comfortable and no acute distress Resp Effort & Inspection: normal respiratory effort Auscultation: clear to auscultation bilaterally Cardio Rate: regular rate Rhythm: regular rhythm Extrem Other: Brief evaluation of the left shoulder shows pain in the subacromial space. There is pain with resisted and active motion about the left shoulder. Range of motion was limited due to positioning within the stretcher. No crepitus with range of motion. No significant pain with passive range of motion. Results Last Vital Signs Temp 36.7 C 02/11/23 09:26 Pulse 98 H 02/11/23 09:26 Resp 16 02/11/23 09:26 BP 142/64 H 02/11/23 09:26 Pulse Ox 98 02/11/23 09:26
--- NOTE | 2023-02-11 11:27 | ANES.PREOP_ITS ---
General Info Date of Service Date Performed: 02/11/23 Height: 5 ft 2 in Weight: 73.7 kg Body Mass Index (BMI): 29.7 Surgical Procedure: Operation Date: 02/11/23 12:10 Proposed Procedure Side Surgeon p Wrist ECTR Left Ulises Christianson MD s Excision of Thumb Mass Left Ulises Christianson MD Meds Allergies and Home Medications Allergies Allergy/AdvReac Type Severity Reaction Status Date / Time Iodinated Contrast Media Allergy Severe RASH Verified 02/10/23 12:06 [Iodinated Contrast- Oral and IV Dye] codeine AdvReac Severe PASSES Verified 02/10/23 12:06 OUT, VOMITS morphine AdvReac Severe PASSES Verified 02/10/23 12:06 OUT, VOMITS nitrofurantoin AdvReac Intermediate severe Verified 02/10/23 12:06 vomiting and vertigo meperidine AdvReac Unknown Pt reports Verified 02/10/23 12:06 vomiting foam oxycodone AdvReac Unknown vomits Verified 02/10/23 12:06 tramadol AdvReac VOMITING, Verified 02/10/23 12:06 UNABLE TO MOVE NARCOTICS AdvReac VOMITING Uncoded 02/10/23 12:06 Home Medication Medication Instructions Recorded blood-glucose meter #1 ea 08/22/15 aspirin 81 mg tablet,delayed 81 mg PO DAILY #80 tabs 03/04/18 release vit C 250 mg-vit E 90 mg-zinc 40 1 tab PO BID 04/20/19 mg-copper 1 [id number] capsule (PreserVision AREDS-2) albuterol sulfate 90 mcg/actuation 2 puff inhalation Q6H PRN #8.5 02/18/22 aerosol inhaler grams meclizine 12.5 mg tablet 12.5 mg PO TID PRN dizziness #30 03/04/22 tabs lancets 33 gauge (BD Ultra Fine #200 ea 07/04/22 Lancets) lisinopril 40 mg tablet 40 mg PO DAILY #90 tabs 07/04/22 omeprazole 20 mg capsule,delayed 20 mg PO QAM #90 tab-caps 07/04/22 release simvastatin 20 mg tablet 20 mg PO DAILY #90 tab-caps 07/04/22 amlodipine 10 mg tablet 10 mg PO QHS #90 tabs 09/03/22 glipizide 5 mg tablet 5 mg PO DAILY #90 tabs 09/03/22 blood sugar diagnostic (FreeStyle #200 ea 09/08/22 Lite Strips) ketoconazole 2 % topical cream 1 applic topical DAILY 3 months 12/31/22 #60 grams cephalexin 500 mg capsule 500 mg PO Q6H #28 tab-caps 01/30/23 cephalexin 250 mg capsule 250 mg PO DAILY #90 caps 02/10/23 acetaminophen 500 mg tablet 1,000 mg (2 x 500 mg) PO TID #90 02/11/23 tabs ibuprofen 600 mg tablet 600 mg PO TID PRN pain #90 tabs 02/11/23 Current Visit Medications: Current Medications Generic Name Dose Route Start Last Admin Trade Name Freq PRN Reason Stop Dose Admin Acetaminophen 650 mg 02/11/23 09:51 Acetaminophen 325 Mg Tab PO 03/13/23 09:50 Q4H PRN PRN Ringer's Solution 1,000 mls @ 80 mls/hr 02/11/23 06:00 02/11/23 10:31 IV 03/12/23 23:59 80 mls/hr [facility]ION [facility] Administration Cefazolin Sodium/Dextrose 2 gm in 50 mls @ 100 mls/hr 02/11/23 06:00 Ancef Duplex IVPB 02/11/23 16:00 PREOP [facility] IV Miscellaneous Supplies 1 each 02/11/23 06:00 Iv Access IV 03/12/23 23:59 DIRECTED APPLE Sodium Chloride 0 ml 02/11/23 06:00 Normal Saline Flush 10 Ml Syr IV 03/12/23 23:59 PRN PRN Sodium Chloride 0 ml 02/11/23 06:00 Normal Saline 10 Ml Vial IJ 03/12/23 23:59 DIRECTED PRN Sterile Water 0 ml 02/11/23 06:00 Water,Injection,Sterile 10 Ml Vial IJ 03/12/23 23:59 DIRECTED PRN PFSH Active Problems Active Problems: Problem Status Onset Code Tendinitis of left rotator cuff M75.82 Digital fibrokeratoma, 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 Ingrown toenail of right foot L60.0 Diabetes mellitus with autonomic neuropathy E11.43 Onychomycosis B35.1 Plantar verruca B07.0 Subcutaneous mass of left thumb R22.32 Left carpal tunnel syndrome G56.02 Right rotator cuff tendonitis M75.81 Bursitis of right shoulder M75.51 Osteopenia M85.80 Recurrent UTI N39.0 Bilateral hearing loss H91.93 Vertigo R42 Tubular adenoma of colon ~08/2018 D12.6 Umbilical hernia K42.9 Osteoarthritis M19.90 Type 2 diabetes mellitus E11.9 Hyperlipidemia E78.5 Essential hypertension I10 GERD (gastroesophageal reflux disease) Medical History Medical History COVID-19 Depressive disorder Medical History Comments:: Anesthesia approved to take her meclizine this A.M. to help with vertigo issues with surgery. Surgical History Surgical History Hx of cataract surgery History of knee replacement right knee S/P sacrocolpopexy (04/20/07) History of suburethral sling procedure (06/07/07) S/P abdominal hysterectomy (~1979) Ovaries remain. For AUB S/P cholecystectomy S/P appendectomy History of bilateral breast reduction surgery (04/2009) History of tonsillectomy S/P colonoscopy (08/09/18) 2007-normal History of arthroplasty of right knee (06/04/17) Right TKA by Dr. Christianson History of arthroplasty of left knee (11/29/12) Left TKA by Dr. Parra at [facility] S/P arthroscopy of left knee (09/15/02) Partial medial and lateral meniscectomies Tobacco Smoking/Tobacco Use Status: Never Passive smoking exposure: Yes Second hand exposure: Yes Alcohol Alcohol Intake: never Substance Use Substance use: Never Substance use type: does not use Prental History History 4 Para Hx # Term Pregnancies 4 Multiple births Hx # Pregnancies Ectopic pregnancies AB induced Hx Number of Living Children 2 AB spontaneous Vital Signs and Lab Results Vital Signs Most Recent Vital Signs in EMR: Most Recent Vital Signs Temp Pulse Resp BP Pulse Ox 36.7 C 98 H 16 142/64 H 98 02/11/23 09:26 02/11/23 09:26 02/11/23 09:26 02/11/23 09:26 02/11/23 09:26 Point of Care Results Point of Care Results: Finger Stick Blood Glucose 143 02/11/23 10:02 Lab Results Blood Type / Crossmatch: No Data to Display Complete Blood Count: No Data to Display Complete Metabolic Panel: No Data to Display Liver Function Panel: No Data to Display Coagulation Panel: No Data to Display Cardiac Panel: No Data to Display Arterial Blood Gas: No Data to Display Venous Blood Gas: No Data to Display Pancreas Panel: No Data to Display Thyroid Panel: No Data to Display Infectious Disease: No Data to Display Blood Cultures: No Data to Display Toxicology Panel: 2 No Data to Display Anesthesia Assessment and Plan Anesthesia History Personal History: No History of Anesthesia Complications Family History: No Family History of Anesthesia Complications Exercise Tolerance Exercise Tolerance: Metabolic Equivalents>4 Pertinent Negatives Pertinent Negatives: No Symptoms of GERD, No Major Cardiovascular Symptoms or Complaints and No Major Pulmonary Symptoms or Complaints Cardiac & Pulmonary Exam Cardiac Exam: Normal S1/S2 Heart Sounds Pulmonary Exam: Clear Bilateral Breath Sounds Implantable Cardiac Device Does patient have a Pacemaker or an ICD?: No Airway Exam Known Difficult Airway: No Mallampati Class: 2 Mouth Opening: Normal (> 3cm) Thyromental Distance: Greater than 3 cm Neck Range of Motion: Full ROM Neck Circumference: Normal Teeth Condition: Removable Dentures/Plates Upper ASA Classification ASA Score: ASA 3 Emergency Case?: No NPO Status NPO Status: NPO Clears >2 hours, Solids >8 hours Anesthesia Plan Resuscitation Status: Full Code Anesthesia Technique: General Anesthesia Airway Planned: Natural Airway Monitors Used: Standard Monitors
[2023-02-11 11:30] VITALS: BMI 29.7
[2023-02-11] MEDS: Bupivacaine 0.25% Pres-Free 30 ML VIAL (12:37)
--- NOTE | 2023-02-11 12:40 | SOFT_PTH ---
PATIENT: Suha Martinez LOC: [facility] U#:[id number] AGE/SX: 77/F ROOM: RE02/11/[address]: Ulises Christianson MD : [id number] BED: DIS: 02/11/2023 SPEC #: [id number] RECD: 02/11/23 13:11 STATUS: STEFAN REQ #: [id number] DANIELA: 02/11/23 12:[address]: Ulises Christianson DEPT: Surgical Specimen RECD BY: Tita Gallardo ENTERED: 02/11/23 13:13 SP TYPE: SOFT OTHR DR: RICKY Rodgers Tissues: 1 - SOFT TISSUE-CYST(NOT LIPOMA) Procedures: GROSS AND MICRO LEVEL 4 IMMUNOPEROXIDASE STAIN Comments: [id number]
[2023-02-11] MEDS: methylPREDNISolone ACETATE 80 MG/ML VIAL (12:44)
[2023-02-11 12:58] VITALS: BP 151/63; PULSE 64; RESP 16; TEMP 36.5; O2SAT 97
--- NOTE | 2023-02-11 13:03 | W.ANESPOSTOP ---
Postoperative Evaluation Date, Time and Location Date Performed: 02/11/23 Time Performed: 13:03 Patient Location: Day Surgery Unit Vital Signs Most Recent Imported Vital Signs: Most Recent Vital Signs Temp Pulse Resp BP Pulse Ox 36.5 C 64 16 151/63 H 97 02/11/23 12:58 02/11/23 12:58 02/11/23 12:58 02/11/23 12:58 02/11/23 12:58 Pain Score Most Recent Pain Score: Most Recent Pain Score Pain Level 0 02/11/23 12:58 Assessment Mental Status: Awake (Alert & Oriented to Patient Baseline) Airway and Respiratory Function: Patent airway with normal (patient baseline) respiratory exam Cardiovascular Function: Hemodynamically Stable Hydration Status: Adequately Hydrated Nausea & Vomiting: No Nausea or Vomiting Pain: Pt. Denies Any Pain Peripheral Nerve Block: Patient did not receive a nerve block
[2023-02-11 13:24] VITALS: BP 147/85; PULSE 72; RESP 16; TEMP 35.8; O2SAT 96
--- NOTE | 2023-02-11 15:30 | W.PM.OP ---
Date of service: 02/11/23 Time of Service: 12:30 Operative Note Operative Note DATE OF PROCEDURE: 02/11/23 PRE-OP DIAGNOSIS: Left Carpal Tunnel Syndrome, Left Hand Mass, Left Rotator Cuff Tendinitis POST-OP DIAGNOSIS: same PROCEDURE: Left Endoscopic Carpal Tunnel Release, Left Subcutaneous Hand Mass Excision (2.5cm), and Left Subacromial Shoulder INjection SURGEON: Ulises Christianson ANESTHESIA TYPE: General:No Airway Refer to Anesthesia Record ESTIMATED BLOOD LOSS: 0 PATHOLOGY: none sent TOURNIQUET TIME: 11 COMPLICATIONS: None Patient was transported to: same day Patient's condition: stable Indications: I have seen Suha in clinic for symptoms of carpal tunnel syndrome. The numbness, tingling, and pain limited function. Clinical exam findings [with nerve conduction tests ]confirmed the diagnosis of carpal tunnel syndrome. Nonoperative measures such as bracing, time, activity modifications had been tried but disability and pain persisted. I discussed carpal tunnel release with the patient. I reviewed the risks of the procedure to include, but not limited to, bleeding, infection, pain, stiffness, incomplete release, damage to nerves or vessels, persistent numbness, recurrence. In addition she was also having a prominent mass about the dorsal aspect of the first webspace. It was mobile and subcutaneous and therefore I did offer excision. Additionally, she has been having worsening pain about her left shoulder. She has a history of having a subacromial injection and is recently had a right shoulder injection which is doing very well. She requested a subacromial injection about the left shoulder. After reviewing these procedures and their risk, Suha elected to proceed. Findings: There was tightened carpal tunnel. This was dilated and released successfully with the endoscopic with increased space within the tunnel. The antebrachial fascia was released proximally freeing the median nerve at the wrist. Procedure Description: Suha was greeted in the preoperative holding area where the correct side was identified and marked. The consent was reviewed with the patient and signed. The history and physical was updated. All questions were answered. She was taken back to the operating room. The patient was placed into the supine position on the operating room table with the left arm on an arm board. A nonsterile tourniquet was placed high onto the arm. All bony prominences were well padded. No prophylactic antibiotics were administered given a clean, elective hand surgery case. The left arm was then prepped with Chloraprep and draped in a standard fashion with stockinette and extremity drape. A timeout to confirm correct identity, side and site, procedure, allergies, anesthesia, and medical concerns was performed. The surgical site was marked in the volar wrist creases in line with the radial border of the fourth ray. This area was anesthetized with approximately 6cc of 1% Lidocaine. The proposed site for the excision of the dorsal hand mass was also marked on the skin and anesthetized. The limb was then exsanguinated with an Esmarch. The skin was incised with a 15 blade, approximately 1cm. The skin only was cut and the deeper tissue was dissected bluntly with a tenotomy scissor, avoiding passing nerve and venous structures. The fascia was penetrated and opened bluntly. A two-prong skin hook was placed under this proximal fascial edge. A series of hamate finders were used to identify and dilate the carpal tunnel. Synovial elevator was used to free synovial attachments to the underside of the transverse carpal ligament. My thumb was kept in the palm to arie the distal extent of the carpal tunnel and correctly position the hand. The Microaire endoscope was inserted without difficulty and without resistance. Excellent visualization showed horizontally running fibers of the transverse carpal ligament (TCL). The distal extent of the TCL was visualized and the end of the scope palpated with the thumb. The blade was elevated and withdrawn from distal to proximal. The TCL was split into two flaps. The endoscope was reinserted to confirm complete release and any remnant ligament was incised. The scope was withdrawn and the proximal aspect of the carpal tunnel was grossly inspected and appeared release with the median nerve visible. The antebrachial fascia at the level of the wrist was then freed from the overlying skin and then the underlying median nerve with blunt dissection. This was transected longitudinally for about 3cm proximal to the wrist incision. The wound was then irrigated with easy flow of irrigant distally and proximally. The incision was closed with a single 4-0 Nylon suture. The mass about the dorsal aspect of the left hand was also identified. A 2 cm incision was made overlying this area. Blunt dissection was carried down deeply. The mass was easily noted suprafascial. Some light adhesions were adjacent to it which were dissected off bluntly and the mass was able to be removed from the wound. It was a multilobular solid mass and was sent to pathology. No invasive properties. This wound was thoroughly irrigated and closed with 4-0 nylon. Both wounds were dressed with Xeroform, Gauze, Kerlix and Paras. The tourniquet was deflated with the initial dressing and held with some pressure. Blood flow returned easily to all digits with capillary refill less than 2 seconds. The subacromial space of the left shoulder was then identified and marked on the skin. This area was prepped ChloraPrep. Using a 22-gauge needle I then injected 5 cc of 0.25% bupivacaine along with 80 mg of Depo-Medrol into the subacromial space. She tolerated this well and a Band-Aid was applied. The patient tolerated the procedure well and was returned to the Same Day Surgery area in a stable condition suffering no known complication.
== END 2023-02-11 13:47 | disposition home or self-care (01) ==
PROVIDERS: PCP Nurse Practitioner Family; Visit Provider Student in an Organized Health Care Education/Training Program
PROC: 01N54ZZ Release Median Nerve, Percutaneous Endoscopic Approach (ICD-10-PCS; CPT 29848; principal; 2023-02-11 12:00)
PROC: (CPT 11423; 2023-02-11 12:00)
DX: G56.02 Carpal tunnel syndrome, left upper limb (principal); D36.12 Benign neoplasm of peripheral nerves and autonomic nervous system, upper limb, including shoulder; M75.82 Other shoulder lesions, left shoulder
CPT/HCPCS: 11423; 20610; 29848; 88305; 88361; J1040; J1100; J2001; J2405

== ENCOUNTER → 2023-02-19 10:28 | Outpatient (BNVA) | payer MEDICARE, SELFPAY | PROVIDERS: PCP Nurse Practitioner Family; Referring Provider Nurse Practitioner Family; Visit Provider Student in an Organized Health Care Education/Training Program | DX: Z47.89 Encounter for other orthopedic aftercare (principal); D36.12 Benign neoplasm of peripheral nerves and autonomic nervous system, upper limb, including shoulder; G56.02 Carpal tunnel syndrome, left upper limb ==

== ENCOUNTER → 2023-05-26 09:55 | Outpatient (BNVA) | payer MEDICARE, SELFPAY | PROVIDERS: PCP Nurse Practitioner Family; Referring Provider Nurse Practitioner Family; Visit Provider Podiatrist | DX: L60.0 Ingrowing nail (principal); D23.9 Other benign neoplasm of skin, unspecified; E11.43 Type 2 diabetes mellitus with diabetic autonomic (poly)neuropathy | CPT/HCPCS: 11750; 28039 ==

== ENCOUNTER → 2023-06-10 12:58 | Outpatient (BNVA) | payer MEDICARE, SELFPAY | PROVIDERS: PCP Nurse Practitioner Family; Referring Provider Nurse Practitioner Family; Visit Provider Podiatrist | DX: L60.0 Ingrowing nail; D23.9 Other benign neoplasm of skin, unspecified; E11.43 Type 2 diabetes mellitus with diabetic autonomic (poly)neuropathy | CPT/HCPCS: 99213 ==

== ENCOUNTER → 2023-07-23 11:18 | Outpatient (BNVA) | payer MEDICARE, SELFPAY | PROVIDERS: PCP Nurse Practitioner Family; Referring Provider Nurse Practitioner Family; Visit Provider Podiatrist | DX: D23.9 Other benign neoplasm of skin, unspecified (principal); L60.0 Ingrowing nail; E11.43 Type 2 diabetes mellitus with diabetic autonomic (poly)neuropathy; B35.1 Tinea unguium; I70.203 Unspecified atherosclerosis of native arteries of extremities, bilateral legs | CPT/HCPCS: 11721 ==

== ENCOUNTER 2023-11-06 11:35 | Outpatient (CLI) | payer MEDICARE, SELFPAY ==
[2023-11-06 12:23] LABS: HCT 38.5 % (36.0-46.0); HGB 12.8 g/dL (11.2-15.7); MCH 30.2 pg (27.0-33.0); MCHC 33.2 % (32.0-36.0); MCV 91 fL (80-95); MPV 10.7 fL (8.0-11.0); Platelet Count 233 10^3/uL (130-400); RBC 4.24 10^6/uL (3.93-5.22); RDW 13.1 % (11.7-14.6); WBC 10.52 10^3/uL (4.4-10.8)
[2023-11-06 13:40] LABS: ALT 26 U/L (14-59); AST 20 U/L (15-37); Albumin 4.3 g/dL (3.4-5.0); Alkaline Phosphatase 64 U/L (46-116); Anion Gap 9.3 mmol/L (3-11); BUN 21 mg/dL (7-18); Bilirubin, Total 0.73 mg/dL (0.2-1.0); CO2 27.7 mmol/L (21.0-32.0); CREATININE 1.1 mg/dL (0.55-1.02); Calcium 10.5 mg/dL (8.5-10.1); Calculated LDL 82 mg/dL (<100); Chloride 103 mmol/L (98-107); Cholesterol 175 mg/dL (<200); Estimated GFR 51.43 (mL/min/1.73m2); Glucose 119 mg/dL (74-106); HDL Cholesterol 71 mg/dL (40-60); Potassium 3.9 mmol/L (3.5-5.1); Sodium 140 mmol/L (136-145); Total Protein 7.5 g/dL (6.4-8.2); Triglyceride 110 mg/dL (<150); Vitamin B12 558 pg/mL (193-986); Vitamin D 25 Total 28.1 ng/mL (30-100)
[2023-11-06 23:21] LABS: HBs Antibody, Quant 28.2 mIU/mL (See Note); Hep B Surface Ab Positive (See Note); Hepatitis B Core Antibody Negative (Negative); Hepatitis B Surface Antigen Negative (Negative)
[2023-11-08 09:18] LABS: HIV-1/2 Ag & Ab Screen Negative (Negative)
[2023-11-09 10:55] LABS: Hepatitis C Ab w Rflx HCV PCR Negative (Negative)
== END 2023-11-06 11:36 | disposition home or self-care (01) ==
LOC: LOS 11:35
PROVIDERS: PCP Nurse Practitioner Family; Referring Provider Nurse Practitioner Family; Visit Provider Nurse Practitioner Family
DX: Z11.59 Encounter for screening for other viral diseases (principal); E11.9 Type 2 diabetes mellitus without complications; Z00.00 Encounter for general adult medical examination without abnormal findings; M85.80 Other specified disorders of bone density and structure, unspecified site; Z11.4 Encounter for screening for human immunodeficiency virus [HIV]
CPT/HCPCS: 36415; 80053; 80061; 82306; 85027; 86704; 86706; 86803; 87340; 87389; 82607

== ENCOUNTER → 2023-11-25 10:47 | Outpatient (BNVA) | payer MEDICARE, SELFPAY | PROVIDERS: PCP Nurse Practitioner Family; Referring Provider Nurse Practitioner Family; Visit Provider Podiatrist | DX: E11.43 Type 2 diabetes mellitus with diabetic autonomic (poly)neuropathy (principal); B35.1 Tinea unguium; I70.203 Unspecified atherosclerosis of native arteries of extremities, bilateral legs; L60.3 Nail dystrophy; M79.674 Pain in right toe(s); M79.675 Pain in left toe(s) | CPT/HCPCS: 11721; NC OV ==

== ENCOUNTER → 2024-01-07 13:57 | Outpatient (BNVA) | payer MEDICARE, SELFPAY | PROVIDERS: PCP Nurse Practitioner Family; Referring Provider Nurse Practitioner Family; Visit Provider Physical Therapy Assistant | DX: Z12.11 Encounter for screening for malignant neoplasm of colon (principal); Z86.0101 Personal history of adenomatous and serrated colon polyps ==

== ENCOUNTER 2024-01-25 06:35 | Day surgery (SDC) | payer MEDICARE, SELFPAY ==
--- NOTE | 2024-01-24 10:26 | W.PM.DSUDISC ---
Date of service: 01/25/24 Time of Service: 08:51 Discharge Plan Disposition Patient Disposition: Home Condition: Good Discharge Details Reason For Visit: screening colonoscopy Attending Provider: Chaz Kirkpatrick Primary Care Provider: Alana Quezada Home Meds and New Rx's Prescriptions: Continued (DME) lancets 33 gauge misc See Rx Instructions .ROUTE .MEDSUPPLY Qty: 200 4RF Rx Instructions: Check blood sugar twice a day (DME) FreeStyle Lite Strips Strip See Dose Instructions .ROUTE .MEDSUPPLY Qty: 200 4RF Dose Instruction: As directed Rx Instructions: Check blood sugar twice a day cephalexin 250 mg capsule 250 mg PO DAILY Qty: 90 3RF Patient Comments: Per patient this is like a maintenance because of UTI because of pelvic mesh aspirin 81 mg tablet,delayed release (DR/EC) 81 mg PO DAILY Qty: 80 0RF PreserVision AREDS-2 [id number] wm-lkge-in-mg capsule 1 tab PO BID glipizide 5 mg tablet 5 mg PO BID Qty: 180 3RF ketoconazole 2 % cream 1 applic topical DAILY Qty: 120 6RF Rx Instructions: Apply to toenails once daily (DME) blood-glucose meter 1 EACH misc 1 ea Miscellaneous ONCE Qty: 1 Rx Instructions: METER TYPE FREESTYLE LITE DX CODE E11.9 omeprazole 20 mg capsule,delayed release(DR/EC) 20 mg PO QAM Qty: 90 3RF amlodipine 10 mg tablet 10 mg PO QHS Qty: 90 3RF lisinopril 40 mg tablet 40 mg PO DAILY Qty: 90 3RF Rx Instructions: Take 1 tablet once a day simvastatin 20 mg tablet 20 mg PO DAILY Qty: 90 3RF cholecalciferol (vitamin D3) 50 mcg (2,000 unit) tablet 2,000 unit PO DAILY Qty: 90 3RF acetaminophen 650 mg tablet extended release 650 mg PO Q8H PRN Colon Herbal Cleanser Capsule 1 cap PO DIRECTED Discontinued bisacodyl [Dulcolax (bisacodyl)] 5 mg tablet,delayed release (DR/EC) 5 mg PO ONCE Qty: 4 0RF Rx Instructions: Take per colonoscopy instructions provided by ordering providers office polyethylene glycol 3350 17 gram/dose powder 17 g PO ONCE Qty: 238 0RF Rx Instructions: Take per colonoscopy instructions provided by ordering providers office Discharge Instructions Instructions: Diverticulosis Additional Instructions: Suha, we were able to complete your colonoscopy today without any difficulty. Everything went very smoothly. I did not see any signs of polyps today. Incidentally, you do have some diverticulosis. I have attached some basic information here about general approaches to diverticular disease. Because of the types of polyps that you had removed previously, I recommend another 5-year interval for your next colonoscopy. If you have any questions, or need anything in the meantime, please do not hesitate to ask. 1. If tolerated, consume a soft, low fiber diet for 1-2 days. 2[address] Do not drive, drink alcohol, operate machinery, make critical decisions, or do activities that require coordination or balance for 24 hours. 3. Because air was put into your colon during the procedure, expelling air from your rectum (passing gas or farting) is normal. 4. You may not have a bowel movement for 1-3 days because of the colonoscopy prep. This is normal. 5. Go directly to the emergency room if you notice any of the following: Develop chills (warm to touch), or if you have a thermometer and your temperature is above 101 Difficulty breathing or difficultly swallowing Persistent vomiting Severe abdominal pain, other than gas cramps Severe chest pain Black, tarry stools Any bleeding ? exceeding one tablespoon 6. Call your physician if the site where your intravenous was started becomes red, swollen, painful, and warm to touch. 7. Your physician has reviewed your pre-procedure medications. Please continue to take those medications as previously ordered. You will be given specific information/education regarding any changes to your medications before leaving. Activity:: Activity as Tolerated Diet:: As Tolerated Discharge Orders Discharge Orders: Discharge Order (Routine); Ordered 01/24/24 Ordered By: Chaz Kirkpatrick DS: Diagnosis Discharge Diagnosis (1) Encounter for screening colonoscopy: Status: Acute Asessment and Plan: Negative screening colonoscopy; based on history of adenomatous polyps recommend 5-year interval for the next colonoscopy
--- NOTE | 2024-01-24 10:29 | COLE_ITS ---
Date of service: 01/25/24 Time of Service: 08:53 Colonoscopy Report Date of procedure: 01/25/24 Pre-op diagnosis general: screening colonoscopy Post-op diagnosis procedure note: other (Diverticulosis; otherwise negative screening colonoscopy) Procedure: colonocsopy Surgeon: Chaz Kirkpatrick Anesthesia Type: General:No Airway Estimated blood loss (mL): 0 Pathology: none sent Complications: None Disposition: same day Indications: Suha is a 78 year old woman with a history of adenomatous polyps who needs a screening colonoscopy Prep: Miralax/Dulcolax Procedure Start Time: 08:29 Procedure End Time: 08:47 Retraction Time: 8 Findings: Sigmoid diverticulosis Procedure Description: After the induction of anesthesia, and with the patient in left lateral decubitus position, I began by performing an external anorectal exam.? Perineum and skin were normal, as was the anal verge.? There was no evidence of external hemorrhoids.? Next, I performed a digital rectal exam.? I did not appreciate any abnormal findings.? Next, I advanced a colonoscope into the rectal vault.? I performed retroflexion.? This appeared normal.? Using insufflation, I then advanced the colonoscope beyond the rectal folds and into the sigmoid colon before advancing towards the cecum.? There is sigmoid diverticulosis.? The scope was noted to be in the cecum by identification of the ileocecal valve and appendiceal orifice.? I then began withdrawing the colonoscope using repeated irrigation as necessary for full evaluation of the colonic mucosa. ?Once the scope was withdrawn to the level of the rectum, great care was taken to examine portions of the rectal folds.? Finally, the scope was withdrawn and the patient was brought to the same-day surgery recovery unit as the anesthetic wore off. ?The findings and instructions were shared with the patient prior to discharge. [place] Bowel Prep [place] Bowel Prep Right Colon: 2 Left Colon: 2 Transverse Colon: 2 Total Score: 6
--- NOTE | 2024-01-25 07:03 | ANES.PREOP_ITS ---
General Info Date of Service Date Performed: 01/25/24 Height: 5 ft 2 in Weight: 67.9 kg Body Mass Index (BMI): 27.3 Surgical Procedure: Operation Date: 01/25/24 08:20 Proposed Procedure Side Surgeon jacques Kirkpatrick MD Meds Allergies and Home Medications Allergies Allergy/AdvReac Type Severity Reaction Status Date / Time Iodinated Contrast Media Allergy Severe RASH Verified 01/25/24 07:11 (Iodinated Contrast- Oral and IV Dye) codeine AdvReac Severe PASSES Verified 01/25/24 07:11 OUT, VOMITS morphine AdvReac Severe PASSES Verified 01/25/24 07:11 OUT, VOMITS nitrofurantoin AdvReac Intermediate severe Verified 01/25/24 07:11 vomiting and vertigo meperidine AdvReac Unknown Pt reports Verified 01/25/24 07:11 vomiting foam oxycodone AdvReac Unknown vomits Verified 01/25/24 07:11 tramadol AdvReac VOMITING, Verified 01/07/24 14:09 UNABLE TO MOVE NARCOTICS AdvReac VOMITING Uncoded 01/25/24 07:11 Home Medication ?Medication ?Instructions ?Recorded blood-glucose meter #1 ea 08/22/15 aspirin 81 mg tablet,delayed 81 mg PO DAILY #80 tabs 03/04/18 release vit C 250 mg-vit E 90 mg-zinc 40 1 tab PO BID 04/20/19 mg-copper 1 [id number] capsule (PreserVision AREDS-2) glipizide 5 mg tablet 5 mg PO BID #180 tabs 05/26/23 ketoconazole 2 % topical cream 1 applic topical DAILY #120 grams 07/23/23 omeprazole 20 mg capsule,delayed 20 mg PO QAM #90 tab-caps 08/28/23 release amlodipine 10 mg tablet 10 mg PO QHS #90 tabs 09/21/23 lisinopril 40 mg tablet 40 mg PO DAILY #90 tabs 09/21/23 simvastatin 20 mg tablet 20 mg PO DAILY #90 tab-caps 09/21/23 blood sugar diagnostic (FreeStyle #200 ea 11/06/23 Lite Strips) cephalexin 250 mg capsule 250 mg PO DAILY #90 caps 11/06/23 lancets 33 gauge #200 ea 11/06/23 cholecalciferol (vitamin D3) 50 2,000 unit PO DAILY #90 tabs 11/11/23 mcg (2,000 unit) tablet acetaminophen 650 mg 650 mg PO Q8H PRN 01/22/24 tablet,extended release herbal drugs (Colon Herbal 1 cap PO DIRECTED 01/22/24 Cleanser capsule) Current Visit Medications: Current Medications Generic Name Dose Route Start Last Admin Trade Name Freq PRN Reason Stop Dose Admin Ringer's Solution 1,000 mls @ 80 mls/hr 01/25/24 06:00 IV 01/25/24 23:59 [facility]ION [facility] IV Miscellaneous Supplies 1 each 01/25/24 06:00 Iv Access IV 01/25/24 23:59 DIRECTED APPLE Ondansetron HCl 4 mg 01/24/24 10:31 Ondansetron 4 Mg/2 Ml Vial IVP 02/23/24 10:30 Q4H PRN PRN Nausea / Vomiting Sodium Chloride 0 ml 01/25/24 06:00 Normal Saline Flush 10 Ml Syr IV 01/25/24 23:59 PRN PRN Sodium Chloride 0 ml 01/25/24 06:00 Normal Saline 10 Ml Vial IJ 01/25/24 23:59 DIRECTED PRN Sterile Water 0 ml 01/25/24 06:00 Water,Injection,Sterile 10 Ml Vial IJ 01/25/24 23:59 DIRECTED PRN PFSH Active Problems Active Problems: Problem Status Onset Code Encounter for screening colonoscopy Acute Z12.11 Type 2 diabetes mellitus Chronic E11.9 Essential hypertension Chronic I10 Hyperlipidemia Chronic E78.5 GERD (gastroesophageal reflux disease) Chronic Recurrent UTI Chronic N39.0 Osteopenia Chronic M85.80 Bilateral hearing loss Chronic H91.93 Vertigo Chronic R42 Umbilical hernia Chronic K42.9 Osteoarthritis Chronic M19.90 Onychomycosis Chronic B35.1 Digital fibrokeratoma, 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 to help with vertigo issues with surgery (last surgery). 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 For AUB S/P cholecystectomy S/P appendectomy History of bilateral breast reduction surgery (04/2009) History of tonsillectomy S/P colonoscopy (08/09/18) S/P arthroscopy of left knee (09/15/02) Partial medial and lateral meniscectomies Tobacco Smoking/Tobacco Use Status: Never Passive smoking exposure: Yes Second hand exposure: Yes Alcohol Alcohol Intake: never Substance Use Substance use: Never Substance use type: does not use Prental History History 4 Para Hx # Term Pregnancies 4 Multiple births Hx # Pregnancies Ectopic pregnancies AB induced Hx Number of Living Children 2 AB spontaneous Vital Signs and Lab Results Lab Results Blood Type / Crossmatch: No Data to Display Complete Blood Count: No Data to Display Complete Metabolic Panel: Sodium 140 (120-150) 01/20/24 11:10 Potassium 3.8 mmol/L (3.5-5.1) 01/20/24 11:10 Chloride 104 mmol/L 01/20/24 11:10 Carbon Dioxide 27 mmol/L 01/20/24 11:10 BUN 15 mg/dL (7-18) 01/20/24 11:10 Creatinine 0.90 mg/dL (0.55-1.02) 01/20/24 11:10 Est GFR (CKD-EPI 2020) 65 mL/min/ 01/20/24 11:10 Calcium 9.9 mg/dL 01/20/24 11:10 Glucose 145 mg/dL H 01/20/24 11:10 Liver Function Panel: No Data to Display Coagulation Panel: No Data to Display Cardiac Panel: No Data to Display Arterial Blood Gas: No Data to Display Venous Blood Gas: No Data to Display Pancreas Panel: No Data to Display Thyroid Panel: No Data to Display Infectious Disease: No Data to Display Blood Cultures: No Data to Display Toxicology Panel: No Data to Display Anesthesia Assessment and Plan Anesthesia History Personal History: No History of Anesthesia Complications Family History: No Family History of Anesthesia Complications Exercise Tolerance Exercise Tolerance: Metabolic Equivalents>4 Pertinent Negatives Pertinent Negatives: No Symptoms of GERD, No Major Cardiovascular Symptoms or Complaints and No Major Pulmonary Symptoms or Complaints Cardiac & Pulmonary Exam Cardiac Exam: Normal S1/S2 Heart Sounds Pulmonary Exam: Clear Bilateral Breath Sounds Implantable Cardiac Device Does patient have a Pacemaker or an ICD?: No Airway Exam Known Difficult Airway: No Mallampati Class: 2 Mouth Opening: Normal (> 3cm) Thyromental Distance: Greater than 3 cm Neck Range of Motion: Full ROM Neck Circumference: Normal Teeth Condition: Removable Dentures/Plates Upper and Removable Dentures/Plates Lower (left at home) ASA Classification ASA Score: ASA 3 Emergency Case?: No NPO Status NPO Status: NPO Clears >2 hours, Solids >8 hours Anesthesia Plan Resuscitation Status: Full Code Anesthesia Technique: General Anesthesia Airway Planned: Natural Airway Monitors Used: Standard Monitors
[2024-01-25] MEDS: Lactated Ringers 1,000 ML 80 ML IV (07:21)
[2024-01-25 07:23] VITALS: BP 135/69; PULSE 80; RESP 18; TEMP 36.6; O2SAT 99
[2024-01-25 08:04] VITALS: BMI 27.3
[2024-01-25 08:54] VITALS: BP 106/60; PULSE 64; RESP 18; TEMP 35.9; O2SAT 95
[2024-01-25 09:23] VITALS: BP 92/50; PULSE 67; RESP 18; TEMP 36; O2SAT 100
--- NOTE | 2024-01-25 09:49 | W.ANESPOSTOP ---
Postoperative Evaluation Date, Time and Location Date Performed: 01/25/24 Time Performed: 09:11 Patient Location: Day Surgery Unit Vital Signs Most Recent Imported Vital Signs: Most Recent Vital Signs Temp Pulse Resp BP Pulse Ox 36.0 C L 67 18 92/50 L 100 01/25/24 09:23 01/25/24 09:23 01/25/24 09:23 01/25/24 09:23 01/25/24 09:23 Pain Score Most Recent Pain Score: Most Recent Pain Score Pain Level 0 01/25/24 09:23 Assessment Mental Status: Awake (Alert & Oriented to Patient Baseline) Airway and Respiratory Function: Patent airway with normal (patient baseline) respiratory exam Cardiovascular Function: Hemodynamically Stable Hydration Status: Adequately Hydrated Nausea & Vomiting: No Nausea or Vomiting Pain: Pt. Denies Any Pain Peripheral Nerve Block: Patient did not receive a nerve block
== END 2024-01-25 09:40 | disposition home or self-care (01) ==
LOC: SUR 06:35
PROVIDERS: PCP Nurse Practitioner Family; Visit Provider Surgery
PROC: 0DJD8ZZ Inspection of Lower Intestinal Tract, Via Natural or Artificial Opening Endoscopic (ICD-10-PCS; CPT 45378; principal; 2024-01-25 08:15)
DX: Z12.11 Encounter for screening for malignant neoplasm of colon (principal); K57.30 Diverticulosis of large intestine without perforation or abscess without bleeding; I10 Essential (primary) hypertension; Z86.0101 Personal history of adenomatous and serrated colon polyps
CPT/HCPCS: G0105; J2704

== ENCOUNTER → 2024-02-17 09:32 | Outpatient (BNVA) | payer MEDICARE, SELFPAY | PROVIDERS: PCP Nurse Practitioner Family; Referring Provider Nurse Practitioner Family; Visit Provider Podiatrist | DX: B35.1 Tinea unguium (principal); I70.203 Unspecified atherosclerosis of native arteries of extremities, bilateral legs; E11.9 Type 2 diabetes mellitus without complications; L60.3 Nail dystrophy; M79.674 Pain in right toe(s); M79.675 Pain in left toe(s); L60.2 Onychogryphosis; R09.89 Other specified symptoms and signs involving the circulatory and respiratory systems; L65.9 Nonscarring hair loss, unspecified; R23.8 Other skin changes | CPT/HCPCS: 11721 ==

== ENCOUNTER 2024-04-08 13:15 | Outpatient (CLI) | payer MEDICARE, SELFPAY ==
--- NOTE | 2024-04-08 12:45 | DI.RAD_ITS ---
Exam(s) XR CHEST 2V PA LATERAL EXAM: XR CHEST 2V PA LATERAL CLINICAL HISTORY: R05.9 Cough, eval pna. TECHNIQUE: 2D digital imaging was performed. COMPARISON: CR XR PORTABLE CHEST AP from 02/18/2022 FINDINGS: 2 views: Heart size is normal. The mediastinum is not widened. Lungs are clear. No infiltrates nor pleural effusions. IMPRESSION: No acute pulmonary findings. DATA REPOSITORY: RADIATION DOSE DELIVERED:
--- OUTSIDE RECORDS SUMMARY | 2024-04-08 13:19 | XMS_ITS | Encounter Summary ---
[place] [address] Care Team Providers Care Earth Observations Chief Scientist Name Role Phone Alana Quezada APRN Primary Care Provider [phone] Reason for Referral * Consultation (Routine) - Closed Specialty Diagnoses / Procedures Referred By Hemant t Referred To Contact Urology Diagnoses Recurrent UTI Alana Quezada APRN [address] [place] [address] [facility] National Facilities Manager [address] [address] Referral ID Status Reason Start Date Expiration Date V isits Requested Visits Authorized [id number] Closed Consult, Test & Treat PCP Updated and/or Approved 09/12/2022 09/12/2023 6 6 Encounter Details Date Type Department Care Team (Late st Contact Info) Description 09/12/2022 Transcribe Orders eDH Incoming Referrals [phone] Alana Quezada APRN [address] [place] [address] Recurrent UTI Social History Tobacco Use Types Packs/Day Years Used Date Smoking Tobacco: Never Smokeless Tobacco: Never Alcohol Use Standard Drinks/Week Comments Yes 0 (1 standard drink = 0.6 oz pur e alcohol) Sex and Gender Information Value Date Recorded Sex Assigned at Not on file Gender Identity Not on file Sexual Orientation Not on file documented as of this encounter Plan of Treatment Upcoming Encounters Date Type Department Care Team (Late st Contact Info) Description 05/24/2024 11:00 AM EST Office Visit Dermatology at [facility] [address] [place] [address] [facility] [address] MAR[address] [address] Scheduled Referrals Name Type Priority Associated Diagnoses Order Schedule Referral to Urogynecology Outpatient Referral Routine Recurrent UTI Ordered: 09/12/2022 documented as of this encounter Visit Diagnoses Diagnosis Recurrent UTI Urinary tract infection, site not specified documented in this encounter Care Teams Earth Observ[employer] Chief Scientist Relationship Specialty Start Date End Date Alana Quezada APRN [address] [place] [address] PCP - General Family Medicine 12/05/19 documented as of this encounter
--- OUTSIDE RECORDS SUMMARY | 2024-04-08 13:19 | XMS_ITS | Encounter Summary ---
Author Organization [facility] [place] [address] Care Team Providers Care Credit Negotiator Name Role Phone Damien Alana WHITING Primary Care Provider Encounter Details Date Type Department Care Team (Latest Contact Info) Description 09/25/2022 Travel Social History Tobacco Use Types Packs/Day Years [...] 11:00 AM EST Office Visit Dermatology at [facility] [address] [place] [address] Esperanza Gooden MD [facility] DR MARIELE[place] [address] documented as of this encounter Visit Diagnoses Not on filedocumented in this encounter Care Teams Credit Negotiator Relationship Specialty Start Date End Date Alana Quezada APRN [address] [place] [address] PCP - General Family Medicine 12/05/19 documented as of this encounter
--- OUTSIDE RECORDS SUMMARY | 2024-04-08 13:19 | XMS_ITS | Clinical Summary ---
Author Organization [facility] Address [facility] [place] [address] Care Team Providers Care Data Science And Iot Manager Name Role Phone Alana Quezada APRN Primary Care Provider Allergies Active Allergy Reactions Criticality Noted Date Comments Albuterol 06/25/2020 Codeine Phosphate CIS - violently ill Hydrocodone-Acetaminophen CIS - vomiting, rapid pulse Iodine And Iodide Containing Products Rash High 06/25/2020 Meperidine Hcl CIS - violently ill Morphine Sulfate CIS - Nausea/Vomiting Oxycodone-Acetaminophen CIS - Nausea/Vomiting Propoxyphene Hcl CIS - Nausea/Vomiting Propoxyphene N-Acetaminophen CIS - Nausea/Vomiting Medications Medication Sig Dispensed Refills Start Date End Date Status atenolol (TENORMIN) 50 mg tablet 50mg, PO, Once daily 10/29/2009 Ac tive simvastatin (ZOCOR) 40 mg tablet 40MG, PO, QHS 10/29/2009 Active acetaminophen (TYLENOL EXTRA STRENGTH) 500 mg tablet 10/29/2009 Active potassium chloride (KLOR-CON) 20 mEq Packet Take 20 mEq by mouth daily. Active glipiZIDE XL (Glucotrol XL) 5 mg Tablet Extended Rel 24 hr Take 5 mg by mouth daily. Active chlorthalidone (Hygroten) 25 mg Tablet Take 25 mg by mouth daily. Active lisinopriL (Prinivil;Zestril) 20 mg Tablet Take 50 mg by mouth daily. Active omeprazole (PriLOSEC) 20 mg Capsule, Delayed Release(E.C.) Take 50 mg by mouth daily. Active multivitamin (THERAGRAN) Tablet Take 1 tablet by mouth daily. Active vit C/vit E ac/lut/copper/zinc (PRESERVISION LUTEIN ORAL) Take by mouth daily. Acti ve aspirin EC 81 mg Tablet, Delayed Release (E.C.) Take 81 mg by mouth daily. Active Estradiol (Bulk) 100 % Powd 0.01 %Indications:Vaginal atrophy Place vaginally See Admin Instructions. Pea size amount just inside the vagina nightly for 2 weeks then twice a week at night 30 g 11 04/23/2020 Active Additional Information Patient not taking.Reported on 09/25/2022 amLODIPine (Norvasc) 10 mg tablet Take 20 mg by mouth daily. Active mv-mn/om3/dha/epa/fi sh/lut/mitchel (OCUVITE ADULT 50 PLUS ORAL) Take by mouth. A ctive Active Problems Problem Noted Date Diagnosed Date Microscopic hematuria 12/16/2019 Benign essential HTN DM (diabetes mellitus), type 2 GERD (gastroesophageal reflux disease) Family History Medical History Relation Comments Lung Cancer Brother Uterine Cancer Daughter Lung Cancer Father Breast Cancer Mother Lung Cancer Paternal Grandmother Cancer Sister Colorectal Cancer Neg Hx Ovarian Cancer Neg Hx Relation Status Comments Brother Daughter Father Mother Paternal Grandmother Sister Social History Tobacco Use Types Packs/Day Years Used Date Smoking Tobacco: Never Smokeless Tobacco: Never Alcohol Use Standard Drinks/Week Comments Yes 0 (1 standard drink = 0.6 oz pur e alcohol) Sex and Gender Information Value Date Recorded Sex Assigned at Not on file Gender Identity Not on file Sexual Orientation Not on file Last Filed Vital Signs Vital Sign Reading Time Taken Comments Blood Pressure 155/72 09/25/2022 12:29 PM EDT Pulse 72 09/25/2022 12:29 PM EDT Temperature 36.2 ??C (97.1 ??F) 09/25/2022 12:29 PM E DT Respiratory Rate 16 09/25/2022 12:29 PM EDT Oxygen Saturation 100% 09/25/2022 12:29 PM EDT Inhaled Oxygen Concentration - - Weight 71.8 kg (158 lb 6.4 oz) 09/25/2022 12:29 PM EDT Height 158.8 cm (5' 2.5) 09/25/2022 12:29 PM ED T Body Mass Index 28.51 09/25/2022 12:29 PM EDT Plan of Treatment Upcoming Encounters Date Type Department Care Team (Late st Contact Info) Description 05/24/2024 11:00 AM EST Office Visit Dermatology at [facility] [address] [place] [address] Esperanza Gooden MD [facility] DR MAR[address]LENA [place] [address] Health Maintenance Due Date Last Done Comments DM Creatinine yearly 1954 DM Hemoglobin A1c 1954 DM Opthalmology Exam 1954 DM Urine Microalbumin yearly 1954 Hepatitis C Screening 1962 Pneumoccocal Vaccine: 65+ (1 of 2 - PCV) 12/14/1963 Tetanus/Diphtheria/Pertussis Vaccines (1 - Tdap) 12/14/1963 Zoster vaccine (1 of 2) 1994 Advance Directive 12/14/1999 Bone Density Scan 2009 RSV Vaccine (1 - 1-dose 75+ series) 12/14/2019 Covid-19 Vaccine ( - 2023-2 5 season) 2023 Influenza (Flu) vaccine (1 o f 1 - Influenza standard series) 12/06/2023 Breast Cancer screening Discontinued 01/26/20 14, 01/20/2012, 12/27/2010 Procedures Procedure Name Priority Date/Time Associated Diagnosis Comments MAMMO SCREENING CAD BILATERAL Routine 01/25/2014 11:45 AM EDT from Last 3 Months or Most Recently Relevant to Health Maintenance Results * Mammo digital bilateral Screening with CAD (01/25/2014 11:45 AM EDT) Anatomical Region Laterality Modality Breast Bilateral Mammography 01/25/2014 11:4 5 AM EDT Narrative 01/26/2014 10:23 AM EDT Reason for Exam: Screening ?? Technique: Craniocaudal (CC) and Medio-lateral Oblique (MLO) views of both breasts obtained with direct digital capture. ?? The exam was evaluated by CAD version 8.3.17. ?? Findings: ?? This is a negative mammogram (ACR Category 1). There is a stable fibroglandular pattern without significant change from prior studies. There is no mammographic evidence of cancer. The breasts are predominately fatty. ?? CONCLUSION: This is a NEGATIVE mammogram (ACR Category 1). ?? Routine screening mammography is recommended with the frequency dependent upon the patients age and breast cancer risk factors. ?? A letter has been sent to this patient by the breast imaging center. Procedure Note Iris Quinonez MD - 01/26/2014 Reason for Exam: Screening Technique: Craniocaudal (CC) and Medio-lateral Oblique (MLO) views of both breasts obtained with direct digital capture. The exam was evaluated by CAD version 8.3.17. Findings: This is a negative mammogram (ACR Category 1). There is a stablefibroglandular pattern without significant change from prior studies. There is no mammographic evidence of cancer. The breasts are predominately fatty. CONCLUSION: This is a NEGATIVE mammogram (ACR Category 1). Routine screening mammography is recommended with the frequency dependentupon the patients age and breast cancer risk factors. A letter has been sent to this patient by the breast imaging center. Naila Clancy MD IMG MAMMO ORDERABLES from Last 3 Months or Most Recently Relevant to Health Maintenance Care Teams Data Science And Iot Manager Relationship Specialty Start Date End Date Alana Quezada APRN [address] [place] [address] PCP - General Family Medicine 12/05/19
--- OUTSIDE RECORDS SUMMARY | 2024-04-08 13:19 | XMS_ITS | Encounter Summary ---
[place] [address] Care Team Providers Care Oven Builder Name Role Phone Alana Quezada APRN Primary Care Provider [phone] Reason for Visit * Reason Comments Follow-up * Consultation (Routine) - Closed Specialty Diagnoses / Procedures Referred By Hemant medina Referred To Contact Urology Diagnoses Recurrent UTI Alana Quezada APRN [address] [place] [address] [facility] [employer] [address], [place] [address] Referral ID Status Reason Start Date Expiration Date V isits Requested Visits Authorized [id number] Closed Consult, Test & Treat PCP Updated and/or Approved 09/12/2022 09/12/2023 6 6 Encounter Details Date Type Department Care Team (Late st Contact Info) Description 09/25/2022 12:30 PM EDT Office Visit Obstetrics [place] [address] Andie Allred, RN TELEHEALTH 5 [facility] [place] [address] Microscopic hematuria; Recurrent UTI Social History Tobacco Use Types Packs/Day Years Used Date Smoking Tobacco: Never Smokeless Tobacco: Never Alcohol Use Standard Drinks/Week Comments Yes 0 (1 standard drink = 0.6 oz pur e alcohol) Sex and Gender Information Value Date Recorded Sex Assigned at Not on file Gender Identity Not on file Sexual Orientation Not on file documented as of this encounter Last Filed Vital Signs Vital Sign Reading [...] Mass Index 28.51 09/25/2022 12:29 PM EDT documented in this encounter Progress Notes * Andie Allred, RN TELEHEALTH - 09/25/2022 12:30 PM EDT Patient Active Problem List Diagnosis Date Noted Microscopic hematuria 12/16/2019 Benign essential HTN DM (diabetes mellitus), type 2 GERD (gastroesophageal reflux disease) Female Pelvic Medicine and Reconstructive Surgery @ [facility] Follow-Up Visit SUBJECTIVE: Suha Martinez comes in today for follow-up. She was a previous patient of Dr. Quispe and last seen 2 years ago for microscopic hematuria andrecurrent UTI. She had 3 RBCs/hpf on her sample from 12/16/2019. It does not appear that she has hada repeat urinalysis since then when she is asymptomatic for UTI. She had an office cysto in 12/2019with some inflammatory changes were present. She has not had any upper tract imaging or a repeat cysto since then. She feels that she is having UTIs every 1-2 months right now. She has a standing order in place with her PCP and they will treat her based on the C&S. For symptoms, she has urinary frequency, urgency, bladder pressure and flank pain. She denies any urinary incontinence or feeling of return of prolapse. She denies any gross hematuria, dysuria. She is taking keflex 250 mg daily as prophylaxis for the past 10 days by her PCP and she is scheduled for some type of testing, she thinks maybe with an ultrasound. She is taking cranberry and probiotic supplements. She stopped vaginal estrogen due to worry over cancer. She is s/p TOT mesh mid-urethral sling and laparoscopic mesh sacral colpopexy with Dr. Lofton [id number]. OBJECTIVE: BP 155/72 (BP Location (NBP): Left arm) Pulse 72 Temp 36.2 ??C (97.1 ??F) Resp 16 Ht 158.8 cm (5' 2.5) Wt 71.8 kg (158 lb 6.4 oz) SpO2 100% BMI 28.51 kg/m?? A top lift compressor is present for the examination. General: normal appearing female, pleasant mood, normal speech Skin: skin of abdomen/pelvis normal Extremities: No pitting edema, no calf tenderness bilaterally Pelvic: Normal external genitalia, including urethral meatus and perineum. Straight catheterization procedure note Indication: urine collection preprocedure pain = 0 urethra cleaned with hibacleanse. Straight cath obtained 60 ml of clear urine. postprocedure pain = 0 ASSESSMENT: Suha Martinez is a 76 y.o. woman with: H/o microscopic hematuria Recurrent UTIs PLAN: Will send out for urinalysis with microscopy to see if she still has microscopic hematuria. If so, will plan to schedule a repeat cysto as it has been 3 years and she had some inflammatory changes onher last cysto. Will also consider upper track imaging. She may be having a renal ultrasound with her PCP? If not, will consider a CT urogram. Reassured her that the recurrent UTIs are likely not from the mesh as she had a cysto 3 years ago that did not show mesh, but if her UTIs continue, we can consider a cysto even if she does not have microscopic hematuria. We discussed vaginal estrogen is helpful in the treatment of atrophic vaginitis. Vaginal estrogen has been demonstrated to decrease vaginal pH and decrease recurrent UTIs in postmenopausal women. Vaginal estrogen has been shown to decrease symptoms of vaginal burning, dryness, and pain with intercourse. Vaginal estrogen can also make pelvic examinations and pessary changes more comfortable. Risksof irregular vaginal bleeding in women with a uterus were discussed. Any vaginal bleeding should bereported and evaluated. She is still unsure if she wants to start vaginal estrogen cream again. She is currently taking a daily prophylactic antibiotic, which should hopefully help decrease her UTIs. I suggest that she stay on this for 6 months before trying without it. She should still get urine cultures with each symptomatic episode which she manages with her PCP. Will plan follow up based on her urinalysis. I spent 35 minutes, including pre and post encounter time on her diagnosis and reviewing options for treatment. Andie Allred APRN Division of Female Pelvic Medicine & Reconstructive Surgery documented in this encounter Plan of Treatment Upcoming Encounters Date Type Department Care Team (Late st Contact Info) Description 05/24/2024 11:00 AM EST Office Visit Dermatology at [facility] [address] [place] [phone] Esperanza Gooden MD [facility] DR MARIELENA [place] [address] documented as of this encounter Procedures Procedure Name Priority Date/Time Associated Diagnosis Comments HC URINALYSIS ROUTINE Routine 09/25/2022 1:22 PM EDT Microscopic hematuria Recurrent UTI URINE CULTURE Routine 09/25/2022 1:22 PM EDT Microscopic hematuria Recurrent UTI documented in this encounter Results * Urine culture Straight Catheter Urine (09/25/2022 1:22 PM EDT) Urine Culture No growth (Less than 100 cfu/ml). [facility] Straight Catheter Urine 09/25/2022 1:22 PM EDT 09/25/2022 6:03 PM EDT Narrative Resulting Agency Comment Spec In Lab Andie Allred APRN MICROBIOLOGY - GEN ERAL ORDERABLES [facility] [address] [place] [address] * (ABNORMAL) _Urinalysis with microscopic (09/25/2022 1:22 PM EDT) Glucose, Urine Dipstick 250(A) Negative mg/dL [facility] Protein, Urine Dipstick Negative Negative mg/dL [facility] Bilirubin, Urine Dipstick Negative Negative mg/dL [facility] Comment: Clinical correlation required for positive Urine Bilirubin results as false positive may occur with some drugs and drug related products. If a false positive is suspected a serum total bilirubin should be considered if clinically indicated. Urobilinogen, Urine Dipstick Normal Normal mg/dL [facility] pH, Urn (dipstick) 5.5 5.0 - 8.0 [facility] Blood, Urine Dipstick Trace(A) Negative mg/dL [facility] Ketone, Urine Dipstick Negative Negative mg/dL [facility] Nitrite, Urine Dipstick Negative Negative [facility] Leukocytes, Urine Dipstick Negative Negative mcL [facility] Appearance, Urine Dipstick Clear Clear [facility] Specific [place] Urine Automated 1.017 1.005 - 1.030 [facility] Color, Urine Dipstick Yellow Yellow [facility] RBC, Urine 1 0 - 4 /HPF [facility] WBC, Urine 0 0 - 5 /HPF [facility] Squamous Epithelial Cells Raw Data, Urine 1 <=4 /HPF [facility] Urine 09/25/2022 1:22 PM EDT 09/25/2022 5:30 PM EDT Narrative Resulting Agency Comment Spec In Lab Andie Allred APRN URINE ORDERABLES Performing Organization Address City/State/[facility] Co de Phone Number [facility] [place] [address] documented in this encounter Visit Diagnoses Diagnosis Microscopic hematuria Recurrent UTI Urinary tract infection, site not specified documented in this encounter Care Teams Oven Builder Relationship Specialty Start Date End Date Alana Quezada APRN [address] [place] [address] PCP - General Family Medicine 12/05/19 documented as of this encounter
--- OUTSIDE RECORDS SUMMARY | 2024-04-08 13:20 | XMS_ITS | Encounter Summary ---
Author Organization Health system Address [address] [place] [address] Care Team Providers Care Steamboat Captain Name Role Phone Unknown, Provider Primary Care Provider Unava ilable Encounter Details Date Type Department Care Team (Late st Contact Info) Description 08/09/2018 Results Only [facility] [phone] Moraima Mendez MD [address] [place] [address] [address] [place], [place] [id number] Social History Tobacco Use Types Packs/Day Years Used Date Smoking Tobacco: Never Assessed Comments Unknown Sex and Gender Information Value Date Recorded Sex Assigned at Not on file Legal Sex Female 17:32 EST Gender Identity Not on file Sexual Orientation Not on file documented as of this encounter Plan of Treatment Not on file documented as of this encounter Procedures Procedure Name Priority Date/Time Associated Diagnosis Comments SURGICAL PATHOLOGY Routine 08/09/2018 8:51 EDT documented in this encounter Results * SURGICAL PATHOLOGY (08/09/2018 8:51 EDT) Pathology Report: SURGICAL PATHOLOGY REPORT Reports generated via electronic interface contain original data; however they are lacking the format of the original report. Caution should be taken when reading/interpret ing unformatted reports. Name: ? HÉCTOR TROY ? Accession #: ? [id number] ? : ? 1945 (Age: 72) ??F ? Collect Date: ? 08/09/2018 ? Location: ? [facility] ? Receive Date: ? 08/10/2018 ? Provider: MORAIMA MENDEZ MD Copy to: JAHEMMANUEL ANAYA TANK TRUCK LOADER ? Final Pathologic Diagnosis: A. COLON, ASCENDING, POLYP, BIOPSY: - Tubular adenoma. B. COLON, TRANSVERSE, POLYP, BIOPSY: - Tubular adenoma. Document reviewed and electronically signed by: WES MARION MD Report ??Date: 08/12/2018 09:36 By the signature above, the attending physician certifies that he/she has personally conducted a gross and/or microscopic examination of the described specimens and rendered or confirmed the above diagnosis. Specimen(s) Received: A. ??Ascending colon polyp B. ??Transverse colon polyp Clinical History: Colon cancer screening Gross Description: A. ?Received in formalin labelled with proper patient identification (initials F, L) and ascending colon polyp are two light garcia biopsy is measuring 0.2 x 0.1 x 0.1 cm. Submitted intact in block A1. B. ?Received in formalin labelled with proper patient identification (initials F, L) and transverse colon polyp are two light garcia biopsies measuring 0.2 x 0.2 x 0.2 cm and 0.3 x 0.3 x 0.1 cm. Submitted intact in block B1. LETTY Block (ASCP) 08/10/2018 9:19 AM End of Report [facility] 08/09/2018 8:51 EDT 08/10/2018 8:51 EDT us Moraima Mendez MD PATHOLOGY ORDERABLES Fin al Result Performing Organization Address City/State/[place] Co de Phone Number [facility] [address] [place] [address] documented in this encounter Visit Diagnoses Not on filedocumented in this encounter Care Teams Steamboat Captain Relationship Specialty Start Date End Date Unknown, Provider, PCP - General 02/16/15 02/03/23 documented as of this encounter
--- OUTSIDE RECORDS SUMMARY | 2024-04-08 13:20 | XMS_ITS | Encounter Summary ---
Author Organization [facility] Address [address] [place] [address] Care Team Providers Care Commissioner Of Relocation Services Name Role Phone Unknown, Provider Primary Care Provider Unava ilable Encounter Details Date Type Department Care Team (Latest Contact Info) Description 08/09/2018 15:24 EDT - 08/09/2018 23:59 EDT Hospital Encounter [address] [address] Unknown, ProviderMD Discharge Disposition: Home or Self Care Social History Tobacco Use Types Packs/Day Years Used Date Smoking Tobacco: Never Assessed Comments Unknown Sex and Gender Information Value Date Recorded Sex Assigned at Not on file Legal Sex Female 17:32 EST Gender Identity Not on file Sexual Orientation Not on file documented as of this encounter Discharge Disposition Disposition Code Departure Means Destination Home or Self Group Home documented in this encounter Plan of Treatment Not on file documented as of this encounter Visit Diagnoses Not on filedocumented in this encounter Care Teams Commissioner Of Relocation Services Relationship Specialty Start Date End Date Unknown, ProviderMD PCP - General 02/16/15 02/03/23 documented as of this encounter
--- OUTSIDE RECORDS SUMMARY | 2024-04-08 13:20 | XMS_ITS | Encounter Summary ---
Author Organization [facility] [place] [address] Care Team Providers Care Performance Improvement Coordinator Name Role Phone Alana Quezada APRN Primary Care Provider Reason for Visit * Reason Onset Date Comments Results 12/22/2019 Neg COVID Encounter Details Date Type Department Care Team (Late st Contact Info) Description 12/22/2019 [place] [phone] Maya Turner, RN Results (Neg COVID) Social History Tobacco Use Types Packs/Day Years Used Date Smoking Tobacco: Never Smokeless Tobacco: Never Alcohol Use Standard Drinks/Week Comments Yes 0 (1 standard drink = 0.6 oz pur e alcohol) Sex and Gender Information Value Date Recorded Sex Assigned at Not on file Gender Identity Not on file Sexual Orientation Not on file documented as of this encounter Miscellaneous Notes * Telephone Encounter - Maya Turner RN - 12/22/2019 4:20 PM EDT Called with negative Covid test results. Patient not on quarantine at this time. documented in this encounter Plan of Treatment Upcoming Encounters Date Type Department Care Team (Late st Contact Info) Description 05/24/2024 11:00 AM EST Office Visit Dermatology at [facility] [address] [place] [address] Esperanza Gooden MD [facility] [place] [address] documented as of this encounter Visit Diagnoses Not on filedocumented in this encounter Care Teams Performance Improvement Coordinator Relationship Specialty Start Date End Date Alana Quezada APRN [address] [place] [address] PCP - General Family Medicine 12/05/19 documented as of this encounter
--- OUTSIDE RECORDS SUMMARY | 2024-04-08 13:20 | XMS_ITS | Encounter Summary ---
Author Organization [facility] Address [address] [place] [address] Care Team Providers Care Inker Machine Name Role Phone Alana Quezada SPORTS INTERN Primary Care Provider [phone] Encounter Details Date Type Department Care Team (Late st Contact Info) Description 02/11/2023 Lab Requisition [facility] Laboratory Medicine - [facility] [address] [place] [address] Ulises Christianson Jr., MD [address] [place] [phone] Other shoulder lesions, left shoulder; Localized swelling, mass and lump, left upper limb; Carpal tunnel syndrome, left upper limb Social History Tobacco Use Types Packs/Day Years Used Date Smoking Tobacco: Never Assessed Interpersonal Safety Answer Date Record ed Physically Hurt Never 11/06/2019 Verbally Threaten Not on file 11/06/2019 Comments Unknown Sex and Gender Information Value Date Recorded Sex Assigned at Not on file Legal Sex Female 17:32 EST Gender Identity Not on file Sexual Orientation Not on file documented as of this encounter Plan of Treatment Not on file documented as of this encounter Procedures Procedure Name Priority Date/Time Associated Diagnosis Comments SURGICAL PATHOLOGY Today 02/11/2023 12 :40 EST Other shoulder lesions, left shoulder Localized swelling, mass and lump, left upper limb Carpal tunnel syndrome, left upper limb documented in this encounter Results * SURGICAL PATHOLOGY (02/11/2023 12:40 EST) Note to Patient The following pathology results have been interpreted by your pathologist and may be available to you before your health provider has had the opportunity to review them. Please allow time for your provider to receive these results and explore management options, if applicable. 02/18/2023 11:27 [facility] Final Diagnosis A. SOFT TISSUE OF THUMB ? MASS? 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 (see comment) 02/18/2023 11:27 [facility] Diagnosis Comment Histologic examination reveals a well-circumscribed encapsulated neoplasm with hypercellular and hypocellular areas, composed of spindle cells in short fascicles and palisading in hypercellular areas, and loose edematous stroma with some hyalinized vessels in hypocellular areas. Scattered neoplastic cells show smudgy nuclei (degenerative type changes) and there is no mitotic figures. The histologic and immunohistochemical study (see below) support a diagnosis of schwannoma. Immunoperoxidase stains were performed on this case to further characterize the lesion. ANTIBODY(CLONE)(BLOCK ):RESULT S-100 ALK PHOS (4C4.9, [place]) (A1): Diffusely and strongly positive in neoplastic cells. NOTE: One or more of the reagents used in immunoperoxidase testing in this case may not have been cleared or approved by the U.S. Food and Drug Administration (FDA). The FDA has determined that such clearance or approval is not necessary. These tests are used for clinical purposes. They should not be regarded as investigational or for research. These reagents' performance characteristics have been determined by [facility] and/or by the referring laboratory. The positive and negative controls worked appropriately. If immunoperoxidase staining has been performed on alcohol fixed cytology specimens, which has not been fully validated, the assays should be interpreted with caution and correlated with clinical data. This laboratory is certified under the Clinical Laboratory Improvement Amendments of 1988 (CLIA-88) as qualified to perform high complexity clinical laboratory testing. 02/18/2023 11:27 [facility] Attestation By the signature below, the attending physician certifies that they have 1) personally conducted a gross and/or microscopic examination of the described specimen(s), and/or personally interpreted the results of laboratory testing of the described specimen(s), and 2) personally rendered or confirmed the above diagnosis. 02/18/2023 11:27 [facility] at [address] Clinical History Left thumb mass 02/18/2023 11:27 [facility] Gross Description A. Received in formalin labelled with proper patient identification (initials F, L) and left thumb mass is a pale yellow rubbery tissue (1.0 g, 2.6 x 1.0 x 0.7 cm). The tissue is partially encapsulated by a white, thin, semi-translucent membrane. The outer surface is inked blue. The tissue is trisected to reveal pale yellow-white, homogeneous cut surfaces without hemorrhagic areas or necrosis. The specimen is entirely submitted in A1 and A2. LETTY ISLAS(ASCP) 02/12/2023 9:46 02/18/2023 11:27 [facility] Performing Lab [facility] 02/18/2023 11:27 [facility] Scanned Images 02/18/2023 11:27 [facility] Tissue SOFT TISSUE / Unknown 02/11/2023 12:40 EST 02/11/2023 18:25 EST us Ulises Christianson Jr., MD PATHOLOGY ORDER GENO Final Result [facility] [address] [place] [address] documented in this encounter Visit Diagnoses Diagnosis Other shoulder lesions, left shoulder Localized swelling, mass and lump, left upper limb Carpal tunnel syndrome, left upper limb documented in this encounter Care Teams Inker Machine Relationship Specialty Start Date End Date Alana Quezada NP [address] [place] [address] [address] [place] [id number] PCP - General 02/04/23 documented as of this encounter
--- OUTSIDE RECORDS SUMMARY | 2024-04-08 13:20 | XMS_ITS | Encounter Summary ---
Author Organization [facility] [place] [address] Care Team Providers Care Supervisor Sunglasses Name Role Phone Damien Alana WHITING Primary Care Provider [phone] Encounter Details Date Type Department Care Team (Late st Contact Info) Description 12/16/2019 Telephone Obstetrics [place] [phone] Karen Rivera Social History Tobacco Use Types Packs/Day Years [...] 11:00 AM EST Office Visit Dermatology at [facility] [address] [place] [address] Esperanza Gooden MD [facility] DR [address] [place] [address] documented as of this encounter Visit Diagnoses Not on filedocumented in this encounter Care Teams Supervisor Sunglasses Relationship Specialty Start Date End Date Alana Quezada APRN [address] [place] [address] PCP - General Family Medicine 12/05/19 documented as of this encounter
--- OUTSIDE RECORDS SUMMARY | 2024-04-08 13:20 | XMS_ITS | Encounter Summary ---
Author Organization [facility] [place] [address] Care Team Providers Care Gun Welder Name Role Phone Damien Alana WHITING Primary Care Provider [phone] Encounter Details Date Type Department Care Team (Late st Contact Info) Description 03/09/2020 Telephone Obstetrics [place] [phone] Ofelia Hensley Social History Tobacco Use Types Packs/Day Years [...] 11:00 AM EST Office Visit Dermatology at [facility] [address] [place] [address] Esperanza Gooden MD [facility] DR [address]LE[address] [place] [address] documented as of this encounter Visit Diagnoses Not on filedocumented in this encounter Care Teams Gun Welder Relationship Specialty Start Date End Date Alana Quezada APRN [address] [place] [address] PCP - General Family Medicine 12/05/19 documented as of this encounter
--- OUTSIDE RECORDS SUMMARY | 2024-04-08 13:20 | XMS_ITS | Encounter Summary ---
Author Organization [facility] [place] [address] Care Team Providers Care Welding Machine Assembler Name Role Phone Alana Quezada APRN Primary Care Provider [phone] Encounter Details Date Type Department Care Team (Late st Contact Info) Description 04/23/2020 Orders Only Obstetrics [place] [address] Lindsey Williamson, RN Vaginal atrophy Social History Tobacco Use Types Packs/Day Years [...] at [facility] [address] [place] [address] Esperanza Gooden MD [facility] DR [address]LE[address] [place] [address] documented as of this encounter Visit Diagnoses Diagnosis Vaginal atrophy Postmenopausal atrophic vaginitis documented in this encounter Care Teams Welding Machine Assembler Relationship Specialty Start Date End Date Alana Quezada APRN [address] [place] [address] PCP - General Family Medicine 12/05/19 documented as of this encounter
--- OUTSIDE RECORDS SUMMARY | 2024-04-08 13:20 | XMS_ITS | Encounter Summary ---
Author Organization [facility] Address [facility] [place] [address] Care Team Providers Care Long Chain Dyeing Machine Operator Name Role Phone Alana Quezada APRN Primary Care Provider Reason for Visit * Reason Comments Procedure Encounter Details Date Type Department Care Team (Late st Contact Info) Description 12/23/2019 3:15 PM EDT Office Visit Obst[place] [address] Gale Dunbar MD [facility] DR OBSTETRICS & [place] [address] Microscopic hematuria; H/O urinary tract infection Social History Tobacco Use Types Packs/Day Years [...] Sign Reading Time Taken Comments Blood Pressure 164/82 12/23/2019 4:26 PM EDT Pulse 78 12/23/2019 4:26 PM EDT Temperature - - Respiratory Rate - - Oxygen Saturation - - Inhaled Oxygen Concentration - - Weight - - Height - - Body Mass Index - - documented in this encounter Progress Notes * Gale Dunbar - 12/23/2019 3:15 PM EDT Cystourethroscopy Procedure Note Indications/Diagnosis: S/p TOT and LSC mesh sacral colpopexy, Unclear UTI history, intermittent irritative voiding. Unable to obtain urine cultures. Anesthesia: 2% Xylocaine jelly, intraurethral. Procedure Details The risks, benefits, complications, treatment options, and expected outcomes were discussed with the patient. The patient concurred with the proposed plan, giving informed consent. Prior to the procedure, time out protocol was followed with identification of the patient by name, date of . The planned procedure was confirmed. Cystoscopy was performed today under local anesthesia, using sterile technique. The patient was placed in the dorsal lithotomy position, prepped with Betadine, and draped in the usual sterile fashion. 2% Xylocaine jelly was inserted intraurethrally with a sterile cotton swab. A flexible cystoscope was used to inspect both the urethra and bladder. Findings: Urethra: normal, without strictures Bladder: mucosa with erythematous patch superior to the trigone, nests with cystic and erythematouschange; no trabeculations; no foreign bodies, stones or polyps Ureteral orifice(s): were seen bilaterally and in normal position. Specimens: None Complications: None, patient tolerated the procedure well. Condition: stable Prophylaxis not indicated Plan: Inflammatory changes present. Sent standing ua with reflex culture order to [facility] to further evaluate. She tried to obtain the vaginal estrogen cream but it was too expensive. We will plan to have it compounded. If she has persistent hematuria, she may benefit from a Urology consultation for second opinion, upper tract evaluation and possible biopsy. Rtn in 3-4 months for follow-up or sooner as needed. Patient was seen and discussed with Dr. Geo Dunbar MD * Yonny Guardado MD - 12/23/2019 3:15 PM EDT I was the attending physician supervising the resident in the above care and I was present with theresident for the entire procedure. documented in this encounter Plan of Treatment Upcoming Encounters Date Type Department Care Team (Late st Contact Info) Description 05/24/2024 11:00 AM EST Office Visit Dermatology at [facility] [address] [place] [address] Esperanza Gooden MD [facility] DR MARIELENA [place] [address] documented as of this encounter Visit Diagnoses Diagnosis Microscopic hematuria H/O urinary tract infection Personal history of urinary (tract) infection documented in this encounter Care Teams Long Chain Dyeing Machine Operator Relationship Specialty Start Date End Date Alana Quezada APRN [address] [place] [address] [address] [place] [address] PCP - General Family Medicine 12/05/19 documented as of this encounter
--- OUTSIDE RECORDS SUMMARY | 2024-04-08 13:20 | XMS_ITS | Encounter Summary ---
Author Organization [facility] Address [address] [place] [address] Care Team Providers Care Unified Communications Architect Name Role Phone Alana Quezada TEAM DRIVER Primary Care Provider Encounter Details Date Type Department Care Team (Late st Contact Info) Description 11/06/2023 Lab Requisition [facility] Pathology & Laboratory Medicine - [facility] [address], [place] [id number] Outr Resulting Lab, Provider Social History Tobacco Use Types Packs/Day Years [...] Procedure Name Priority Date/Time Associated Diagnosis Comments HIV 1/2 ANTIGEN AND ANTIBODY, 4TH GENERATION Routine 11/06/2023 11:42 EDT documented in this encounter Results * HIV 1/2 ANTIGEN AND ANTIBODY, 4TH GENERATION (11/06/2023 11:42 EDT) HIV 1 and 2 Antibody/p24 Antigen, 4th Generation Negative Negative 11/08/2023 9:13 EDT [facility] Comment:If acute HIV-1 infec tion is suspected in a high risk patient, submit plasma specimen for HIV-1 RNA quantitation test. Blood VENOUS BLOOD / Unknown 11/06/2023 11:42 EDT 11/06/2023 21:40 EDT Narrative [facility] - 11/08/2023 9:13 EDT Fourth Generation assay performed on the Siemens [employer] XPT. us Provider Outr Resulting Lab IMMUNOLOGY AND SEROL OGY ORDERABLES Final Result [facility] [address] [place], [place] [id number] documented in this encounter Visit Diagnoses Not on filedocumented in this encounter Care Teams Unified Communications Architect Relationship Specialty Start Date End Date Alana Quezada NP [address] [place] [address] [address] [place] [id number] PCP - General 02/04/23 documented as of this encounter
--- OUTSIDE RECORDS SUMMARY | 2024-04-08 13:20 | XMS_ITS | Encounter Summary ---
Author Organization [facility] [place] [address] Care Team Providers Care Drapery Examiner Name Role Phone RainAlana zhang GLASS DEPOSITION TENDER Primary Care Provider [phone] Encounter Details Date Type Department Care Team (Late st Contact Info) Description 12/21/2019 [place] [phone] Bobbi Haddad Social History Tobacco Use Types Packs/Day Years [...] encounter Miscellaneous Notes * Telephone Encounter - Bobbi Haddad - 12/21/2019 7:28 AM EDT 1. ASK: TRAVEL ???Have you travelled outside of [place] ([place], [place], [place], [place], [place], [place]) in the past 14 days??? 2. ASK: EXPOSURE Have you been in contact with anyone suspected or confirmed to have COVID-19 in the past 14 days??? 3. ASK: SYMPTOMS Do you have any new or worsening symptoms on this list that are not related to another medical condition? Fever or chills ?? Cough ?? Shortness of breath or difficulty breathing ?? Fatigue ?? Muscle or body aches ?? Headache ?? Loss of taste or smell ?? Sore throat ?? Congestion or runny nose ?? Nausea or vomiting ?? Diarrhea If 'Yes' to any of the questions above Transfer patient to the Covid-19 Hotline Number ([phone]) for further instructions. If 'No' to all of the questions above Is this the first test for Covid 19 Yes If no, please list date of previous test, result, and type of test (Molecular, Antigen, Antibody orunknown): Resides in congregate care setting No Employee or Household Member of Employee No Healthcare Worker No Schedule appointment: Give directions to testing facility. Please advise patient that all passengers in the vehicle must wear a mask and to please either leave their dogs at home or have them crated/behind a net. Telephone call placed/received to schedule Covid 19 testing with patient. Ordering provider: Gale Dunbar Testing Facility: [facility] Date of Testin/16 Time of Testin:45pm Symptoms: no documented in this encounter Plan of Treatment Upcoming Encounters Date Type Department Care Team (Late st Contact Info) Description 05/24/2024 11:00 AM EST Office Visit Dermatology at [facility] [address] [place] [address] Esperanza Gooden MD [facility] DR [place]IELE[place] [address] documented as of this encounter Visit Diagnoses Not on filedocumented in this encounter Care Teams Drapery Examiner Relationship Specialty Start Date End Date Alana Quezada APRN [address] [place] [address] PCP - General Family Medicine 12/05/19 documented as of this encounter
--- OUTSIDE RECORDS SUMMARY | 2024-04-08 13:20 | XMS_ITS | Encounter Summary ---
Author Organization [facility] Address [facility] [address] Care Team Providers Care Supervising Nurse Name Role Phone Alana Quezada APRN Primary Care Provider [phone] Reason for Visit * Reason Comments Vaginal Prolapse * Consultation (Routine) - Specialty Diagnoses / Procedures Referred By Contac t Referred To Contact Gynecology Oncology Diagnoses Female genital prolapse, unspecified Alana Quezada APRN [address] [place] [address] [facility] [address] [place] [address] Referral ID Status Reason Start Date Expiration Date V isits Requested Visits Authorized [id number] Consult, Test & Treat PCP Updated and/or Approved 12/11/2019 06/09/2020 6 6 Encounter Details Date Type Department Care Team (Late st Contact Info) Description 12/16/2019 1:00 PM EDT Office Visit Obstetric[place] [address] Gale Dunbar MD [facility] DR OBSTETRICS & [place] [address] Vaginal prolapse; Hematuria, unspecified type; Microscopic hematuria; Vaginal atrophy Social History Tobacco Use Types [...] Sign Reading Time Taken Comments Blood Pressure 163/74 12/16/2019 12:44 PM EDT Pulse 65 12/16/2019 12:44 PM EDT Temperature 36.4 ??C (97.5 ??F) 12/16/2019 1 2:44 PM EDT Respiratory Rate 20 12/16/2019 12:4 4 PM EDT Oxygen Saturation 99% 12/16/2019 12: 44 PM EDT Inhaled Oxygen Concentration - - Weight 80.2 kg (176 lb 12.8 oz) 020 12:44 PM EDT Height - - Body Mass Index - - documented in this encounter Progress Notes * Gale Dunbar - 12/16/2019 1:00 PM EDT Images from the original note were not included. Female Pelvic Medicine and Reconstructive Surgery @ [facility] Patient Name: Suha Martinez Patient Primary Care Provider: Alana Quezada APRN There is no problem list on file for this patient. Chief Complaint: Urinary tract infections and mesh History of Present Illness: Ms. Martinez is a 74 y.o. para 4 woman, seen at the kind request of Alana Quezada NP. She has been previously seen in this clinic [place] [address] Lofton for a TOT mesh mid-urethral sling and laparoscopic mesh sacral colpopexy, staged. She presents for evaluation and assessment of urinary tract infections and mesh of a few years duration. Ms. Martinez gets many urinary tract infections for the last year or so. She is treated by her PCP and gives a urine sample every time. She believes she has had 5 in the last year, but is unsure of the results of the cultures. She is not using vaginal estrogen and does not notice a recurrence of the prolapse. Ms. Martinez alsodenies urinary incontinence and fecal incontinence. Goals for this visit 1. Possible recurrent urinary tract infections. 2. She does not have a problem with prolapse Urinary tract history Patient a history of recurrent urinary tract infection. Patient no history of pyelonephritis. Patient no history of urinary tract abnormality. Patient remote history of nephrolithiasis in 2002 Patient has history of hematuria since 1979 Bladder irritants: Fluid intake: quite a bit, water 2 x 19.6, 8oz orange juice, green tea and sometimes regular tea Caffeine intake: 1 cup of decaf in the morning Cigarette smoking (packs, time, if quit when): never Alcohol: once a year Bladder Function Urinary incontinence: no ICIQ-UI Short Form How often do you leak urine? x Never 0 About once a week or less often 1 2-3 times a week 2 About once a day 3 Several times a day 4 All the time 5 How much urine do you usually leak? x None 0 A small amount 1 A moderate amount 2 A large amount 3 Overall, how much does leaking interfere with your everyday life? 0 (0 not at all, 10 a great deal) ICIQ Sum the scores: 0 When does urine leak? (Check all that apply) x Never - Urine does not leak Leaks before you can get to the toilet Leaks when you cough or sneeze Leaks when you are asleep Leaks when you are physically active/exercising Leaks when you have finished urinating or are dressed Leaks for no obvious reason Leaks all the time Pad use (per day): one Pad type: Menstrual pad Daytime voids: Can wait 6-7 hours, with UTI she will go every 45min Nocturia: 1 Previous urinary incontinence treatment (Medical/Behavioral/Surgical): Had the sling placed in 2007 Storage symptoms Urinary frequency x Nocturia Stress urinary incontinence - leakage with exertion, cough/sneeze xx Urge urinary incontinence - leakage preceded immediately by urge to void Noctural enuresis - NOT IN ASSOCIATION WITH URGE Continuous urinary leakage Other: (e,g. giggle, intercourse-related) Bladder sensation Normal - aware of filling and increased sensation up to desire to void Increased - feels an early and persistent need to void Reduced - aware of filling but NOT definite desire to void Absent - NO sensation of filling or need to void x Non-specific - No specific bladder symptoms during filling or void Voiding symptoms x None Slow stream Spraying Intermittent stream - stop/start on > 1 occasion during void Straining - muscular effort to initiate, maintain OR improve stream Terminal dribble - prolonged final part of void Feeling of incomplete emptying Pelvic Organ Prolapse (POP) Any personally see or feel a vaginal bulge? no What precipitates prolapse or symptoms of prolapse? n/a Previous treatment for POP (physical therapy, pessary, surgery)?: Laparoscopic mesh sacral colpopexy Bowel Function Fecal incontinence (yes/no): no Number of fecal incontinent episodes (day/week): n/a Number of bowel movements (day/week): Daily, smooth move tea has helped a lot Defecatory Dysfunction: Symptom Presence Symptom Presence NONE x Incomplete Emptying Straining Infrequent stools (<3 week) Splinting Abdominal discomfort Loose stools Defecatory urgency Hard stools Other Sexual Function Active?: no Pain with intercourse?: no If yes, insertional/Deep? n/a Desire to retain sexual function? yes Past Medical History: Diagnosis Date ??? Benign essential HTN ??? DM (diabetes mellitus), type 2 ??? GERD (gastroesophageal reflux disease) ??? Hyperlipidemia ??? Osteoarthritis Past Surgical History: Procedure Laterality Date ??? APPENDECTOMY ??? BREAST REDUCTION SURGERY ??? CHOLECYSTECTOMY ??? COLPOPEXY 2007 Mesh lsc sacral colpopexy ??? HYSTERECTOMY, TOTAL ABDOMINAL 1980 for AUB ??? INCONTINENCE SURGERY 2008 TOT ??? KNEE ARTHROPLASTY Bilateral ??? TONSILLECTOMY OB History Para Term AB Living 4 4 4 0 0 3 SAB TAB Ectopic Multiple Live Births 0 0 0 0 0 # Outcome Date GA Lbr Markell/2nd Weight Sex Delivery Anes PTL Lv 4 Term 3 Term 2 Term 1 Term 3.827 kg (8 lb 7 oz) Vag-Spont Outpatient Medications Marked as Taking for the 12/16/19 encounter (Office Visit) with Gale Dunbar MD Medication Sig Dispense Refill ??? potassium chloride (KLOR-CON) 20 mEq Packet Take 20 mEq by mouth daily. ??? glipiZIDE XL (Glucotrol XL) 5 mg Tablet Extended Rel 24 hr Take 5 mg by mouth daily. ??? chlorthalidone (Hygroten) 25 mg Tablet Take 25 mg by mouth daily. ??? lisinopriL (Prinivil;Zestril) 20 mg Tablet Take 20 mg by mouth daily. ??? omeprazole (PriLOSEC) 20 mg Capsule, Delayed Release(E.C.) Take 20 mg by mouth daily. ??? multivitamin (THERAGRAN) Tablet Take 1 tablet by mouth daily. ??? vit C/vit E ac/lut/copper/zinc (PRESERVISION LUTEIN ORAL) Take by mouth daily. ??? aspirin EC 81 mg Tablet, Delayed Release (E.C.) Take 81 mg by mouth daily. ??? atenolol (TENORMIN) 50 mg tablet 50mg, PO, Once daily ??? simvastatin (ZOCOR) 40 mg tablet 40MG, PO, QHS ??? acetaminophen (TYLENOL EXTRA STRENGTH) 500 mg tablet ??? [DISCONTINUED] lisinopril (PRINIVIL;ZESTRIL) 5 mg tablet 10mg, PO, Once daily (Patient taking differently: Take 20 mg by mouth.) Allergies Allergen Reactions ??? Codeine Phosphate CIS - violently ill ??? Hydrocodone-Acetaminophen CIS - vomiting, rapid pulse ??? Meperidine Hcl CIS - violently ill ??? Morphine Sulfate CIS - Nausea/Vomiting ??? Oxycodone-Acetaminophen CIS - Nausea/Vomiting ??? Propoxyphene Hcl CIS - Nausea/Vomiting ??? Propoxyphene N-Acetaminophen CIS - Nausea/Vomiting Social History Socioeconomic History ??? Marital status: Spouse name: Not on file ??? Number of children: Not on file ??? Years of education: Not on file ??? Highest education level: Not on file Occupational History ??? Not on file Social Needs ??? Financial resource strain: Not on file ??? Food insecurity Worry: Not on file Inability: Not on file ??? Transportation needs Medical: Not on file Non-medical: Not on file Tobacco Use ??? Smoking status: Never Smoker ??? Smokeless tobacco: Never Used Substance and Sexual Activity ??? Alcohol use: Yes Frequency: Monthly or less Drinks per session: 1 or 2 Binge frequency: Never ??? Drug use: Never ??? Sexual activity: Not Currently Lifestyle ??? Physical activity Days per week: Not on file Minutes per session: Not on file ??? Stress: Not on file Relationships ??? Social connections Talks on phone: Not on file Gets together: Not on file Attends spiritism service: Not on file Active member of club or organization: Not on file Attends meetings of clubs or organizations: Not on file Relationship status: Not on file ??? Intimate partner violence Fear of current or ex partner: Not on file Emotionally abused: Not on file Physically abused: Not on file Forced sexual activity: Not on file Other Topics Concern ??? Not on file Social History Narrative She lives alone in a house. Family History Problem Relation Age of Onset ??? Breast Cancer Mother ??? Lung Cancer Father ??? Cancer Sister ??? Lung Cancer Brother ??? Lung Cancer Paternal Grandmother ??? Uterine Cancer Daughter ??? Ovarian Cancer Neg Hx ??? Colorectal Cancer Neg Hx ROS: Review of all other systems negative except for those mentioned above or indicated below: System Symptom Presence Constitutional Weight Loss Weight gain Eyes History of glaucoma ENT/Mouth Mouth sores/Dry mouth Cardiovascular Chest pain Leg swelling Respiratory Wheezing SOB GI Nausea/vomiting Constipation Abdominal pain Skin/Breast Breast masses Rash/ulcer Musculoskeletal Muscle weakness Trouble Walking Neurological Dizziness/falling Numbness Psychiatric Depression Anxiety Endocrine Abnormal thirst Menopause: Y/N / age? CONNIE / 30's Hot flashes Hematologic Frequent bruising History of blood transfusions With first child 1963 Blood clots (DVT / PE) no Prior problems w/ anesthesia Wakes up slowly, but most recent surgery was better Last Pap smear: Many years ago, no abnormals Outside medical records reviewed: yes, need additional culture recrods Data reviewed (images/urodynamic studies): To further delineate patient's urinary symptoms, a urinedip test and postvoid residual via bladder scanner were obtained. Results for orders placed or performed in visit on 12/16/19 POCT urine dipstick Result Value Ref Range POC Sp [place] 1.002 1.002 - 1.030 POC pH, UA 6 5.0 - 8.5 POC Leuk, UA 2+ Negative - Negative POC Nitrite, UA neg Negative - Negative POC Protein, UA neg Negative - Negative mg/dL POC Glucose, UA neg Normal - Normal mg/dL POC Ketone, UA neg Negative - Negative POC Urobil, UA neg 0.2 - 1.0 mg/dL POC Bili, UA neg Negative - Negative POC Blood, UA 100 Negative - Negative abner/uL OBJECTIVE: BP 163/74 Pulse 65 Temp 36.4 ??C (97.5 ??F) Resp 20 Wt 80.2 kg (176 lb 12.8 oz) SpO2 99% General: normal appearing female, pleasant mood, normal speech Skin: skin of abdomen/pelvis intact and without obvious lesions Respiratory: clear to auscultation bilaterally Neuro: no paraspinous tenderness; saddle sensory function (S2-4) intact in the pelvic area to touch Cardiac: regular rate and rhythm, no appreciated murmurs Gastrointestinal: no palpable masses/organomegaly, soft/nontender, no appreciable hernia, well-healed surgical incisions Musculoskeletal: levator ani tone (0-5): 1, levator ani contraction (0-5): 1, mild levator tenderness; lower extremity motor 5/5 bilaterally Pelvic: Cough stress test (empty supine): negative External Genitalia: Vulva, Ridgeley's and Bartholin glands normal, urethra without tenderness or mass Vagina: With Valsalva, the anterior vaginal wall comes 1 cm inside the hymen, the posterior vagina wall comes 2 cm inside the hymen, and the cervix/apex comes 7 cm inside the hymen Atrophic epithelium (yes/no)?: yes Discharge?: no Cervix: Surgically absent Bimanual (uterus/adnexa): uterus is surgically absent, adnexa not appreciated, mildly tender with palpation of the bladder TVUS 11/25/19 POP Q Measurements: Aa -1 Ba -1 C -7 GH 3 3.5 PB 2 2 TVL 8 Ap -2 Bp -2 D x Impression: Ms. Martinez is a .74 y.o. woman with: ?? Recurrent urinary tract infections; however, records were not available to review ?? Atrophic vaginitis/genitourinary syndrome of menopause ?? Stage 1 prolapse, good apical support Recommendations: I reviewed the anatomy and physiology of possible recurrent urinary tract infections. Further work-up includes cystoscopy and possible CT urogram depending on findings from cystoscopy and prior records. Based on the patients expressed goals for management I have recommended the following: ?? Recurrent UTI's: ?? Plan to obtain records for past urinary tract infections ?? Start vaginal estrogen, rx sent ?? Plan for cystoscopy due to h/o midurethral and sacral colpopexy mesh ?? Plan to place standing order for UA with micro/reflex culture for future symptoms ?? Follow-up: I will call her with the results of her UA/culture today. Seen with Dr. Gurjit Dunbar MD Division of Female Pelvic Medicine/Reconstructive Surgery CC: Alana Quezada, JOHANNE Quezada * Arielle Cagle MD - 12/16/2019 1:00 PM EDT STAFF NOTE Patient was seen in conjunction with Dr. Dunbar, a Fellow in Female Pelvic Medicine and Reconstructive Pelvic Surgery. We have coauthored this note. I was present for the exam, and provided the medical decision making. Arielle Cagle MD Division of Female Pelvic Medicine and Reconstructive Pelvic Surgery documented in this encounter Plan of Treatment Upcoming Encounters Date Type Department Care Team (Late st Contact Info) Description 05/24/2024 11:00 AM EST Office Visit Dermatology at [facility] [address] [place] [address] Esperanza Gooden MD [facility] [address] documented as of this encounter Procedures Procedure Name Priority Date/Time Associated Diagnosis Comments URINALYSIS MICROSCOPIC EXAM Routine 12/16/2019 1:00 PM EDT URINALYSIS WITH REFLEX CULTURE Routine 12/16/2019 1:00 PM EDT Hematuria, unspecified type URINE CULTURE Routine 12/16/2019 1:00 PM EDT POCT URINE DIPSTICK Routine 12/16/2019 Vaginal prolapse documented in this encounter Results * (ABNORMAL) Urine culture (12/16/2019 1:00 PM EDT) Urine Culture 1,000-9,000 cfu/ml Gram Positive organisms , probable contaminant(A ) [facility] Urine specimen obtained by clean catch procedure (specimen) 12/16/2019 1:00 PM EDT 12/16/2019 5:11 PM EDT Narrative Resulting Agency Comment Spec In Lab Gale Dunbar MD MICROBIOLOGY - GEN ERAL ORDERABLES Performing Organization Address City/[facility]/ZIP Co de Phone Number [facility] [place] [address] * (ABNORMAL) Urinalysis Microscopic Exam (12/16/2019 1:00 PM EDT) RBC, Urine 3 0 - 4 /HPF [facility] WBC, Urine >100(H) 0 - 5 /HPF [facility] Bacteria, Urine Occasiona l(A) None /HPF [facility] Comment:Interpret with cauti on, manual microscopic results are from an unspun specimen Squamous Epithelial Cells Raw Data, Urine 1 <=4 /HPF [facility] Transitional Epithelial Cells, Urine <1 <=1 /HPF [facility] Comment:Interpret with cauti on, manual microscopic results are from an unspun specimen Hyaline Casts, Urine 2 0 - 2 /LPF [facility] Urine specimen obtained by clean catch procedure (specimen) 12/16/2019 1:00 PM EDT 12/16/2019 3:46 PM EDT Narrative Resulting Agency Comment Spec In Lab Gale Dunbar MD URINE ORDERABLES Performing Organization Address [facility] Co de Phone Number [facility] [place] [address] * (ABNORMAL) Urinalysis with reflex Culture (12/16/2019 1:00 PM EDT) Glucose, Urine Dipstick Negative Negative mg/dL [facility] Protein, Urine Dipstick Negative Negative mg/dL [facility] Bilirubin, Urine Dipstick Negative Negative mg/dL [facility] Comment: Clinical correlation required for positive Urine Bilirubin results as false positive may occur with some drugs and drug related products. If a false positive is suspected a serum total bilirubin should be considered if clinically indicated. Urobilinogen, Urine Dipstick Normal Normal mg/dL [facility] pH, Urn (dipstick) 6.5 5.0 - 8.0 [facility] Blood, Urine Dipstick Trace(A) Negative mg/dL [facility] Ketone, Urine Dipstick Negative Negative mg/dL [facility] Nitrite, Urine Dipstick Negative Negative [facility] Leukocytes, Urine Dipstick Large(A) Negative [facility] Appearance, Urine Dipstick Cloudy(A) Clear [facility] Specific [place] Urine Automated 1.011 1.006 - 1.030 [facility] Color, Urine Dipstick Yellow Yellow [facility] Reflex to Culture Yes [facility] Urine specimen obtained by clean catch procedure (specimen) 12/16/2019 1:00 PM EDT 12/16/2019 3:46 PM EDT Narrative Resulting Agency Comment Spec In Lab Yonny Guardado MD URINE ORDERABLES [facility] [place] [address] * POCT urine dipstick (12/16/2019) POC Sp [place] 1.002 1.002 - 1.030 POC pH, UA 6 5.0 - 8.5 POC Leuk, UA 2+ Negative - Negative POC Nitrite, UA neg Negative - Negative POC Protein, UA neg Negative - Negative mg/dL POC Glucose, UA neg Normal - Normal mg/dL POC Ketone, UA neg Negative - Negative POC Urobil, UA neg 0.2 - 1.0 mg/dL POC Bili, UA neg Negative - Negative POC Blood, UA 100 Negative - Negative abner/uL Yonny Guardado MD POINT OF CARE TEST O RDERABLES documented in this encounter Visit Diagnoses Diagnosis Vaginal prolapse Unspecified prolapse of vaginal rodriguez Hematuria, unspecified type Microscopic hematuria Vaginal atrophy Postmenopausal atrophic vaginitis documented in this encounter Care Teams Supervising Nurse Relationship Specialty Start Date End Date Alana Quezada APRN [address] [place] [address] [address] [facility] [address] [place] [address] PCP - General Family Medicine 12/05/19 documented as of this encounter
--- OUTSIDE RECORDS SUMMARY | 2024-04-08 13:20 | XMS_ITS | Encounter Summary ---
Author Organization [facility] Address [address] [place] [address] Care Team Providers Care Blacking Machine Operator Name Role Phone Alana Quezada GYROSCOPIC ENGINEERING TECHNICIAN Primary Care Provider [phone] Encounter Details Date Type Department Care Team (Late st Contact Info) Description 11/06/2023 Lab Requisition [facility] Pathology & Laboratory Medicine - [facility] [address] [place], [place] [id number] Outr Resulting Lab, Provider Social History Tobacco [...] Procedure Name Priority Date/Time Associated Diagnosis Comments HEPATITIS C AB W REFLEX TO HCV RNA BY PCR Routine 11/06/2023 11:42 EDT HEPATITIS B PROFILE Routine 11/06/2023 1 1:42 EDT documented in this encounter Results * HEPATITIS C AB W REFLEX TO HCV RNA BY PCR (11/06/2023 11:42 EDT) Hep C Antibody Negative Negative 11/09/2023 10:50 EDT [facility] Blood VENOUS BLOOD / Unknown 11/06/2023 11:42 EDT 11/06/2023 21:40 EDT us Provider Outr Resulting Lab CHEMISTRY & BLOOD GA S ORDERABLES Final Result Performing Organization Address [facility]/ZIP Co de Phone Number [facility] [address] [place] [address] * HEPATITIS B PROFILE (11/06/2023 11:42 EDT) Hep B Surface Ag Negative Negative 11/06/19 23:16 EDT [facility] Hep B Surface Ab, Quantitative 28.2 See Note mIU/mL 11/06/2023 23:16 EDT [facility] Comment: Reference Range for Hep B Surface Ab, Quant: Positive: >= 10.0 mIU/mL Negative: ??< 10.0 mIU/mL Patient is presumed to be immune to infection with Hepatitis B Virus. Hep B Surface Ab, Qualitative Positive See Note 11/06/2023 23:16 EDT [facility] Comment: Reference Range for Hep B Surface Ab, Qual: Unvaccinated: ??Negative Vaccinated: ??Positive Hepatitis B Core Ab, Total Negative Negative 11/06/2023 23:16 EDT [facility] Blood VENOUS BLOOD / Unknown 11/06/2023 11:42 EDT 11/06/2023 21:40 EDT us Provider Outr Resulting Lab CHEMISTRY & BLOOD GA S ORDERABLES Final Result Performing Organization Address [facility]/ZIP Co de Phone Number [facility] [address] [place], [place] [id number] documented in this encounter Visit Diagnoses Not on filedocumented in this encounter Care Teams Blacking Machine Operator Relationship Specialty Start Date End Date Alana Quezada NP [address] [place] [id number] PCP - General 02/04/23 documented as of this encounter
--- OUTSIDE RECORDS SUMMARY | 2024-04-08 13:20 | XMS_ITS | Encounter Summary ---
Author Organization [facility] [place] [address] Care Team Providers Care Home Support Worker Name Role Phone Alana Quezada APRN Primary Care Provider Encounter Details Date Type Department Care Team (Late st Contact Info) Description 01/17/2020 Orders Only Obstetrics [place] [address] Lindsey Williamson, RN Vaginal atrophy Social History [...] 11:00 AM EST Office Visit Dermatology at [facility] [address] [place] [address] Esperanza Gooden MD [facility] DR MARIELENA [place] [address] documented as of this encounter Visit Diagnoses Diagnosis Vaginal atrophy Postmenopausal atrophic vaginitis documented in this encounter Care Teams Home Support Worker Relationship Specialty Start Date End Date Alana Quezada APRN [address] [place] [address] PCP - General Family Medicine 12/05/19 documented as of this encounter
--- OUTSIDE RECORDS SUMMARY | 2024-04-08 13:20 | XMS_ITS | Encounter Summary ---
Author Organization [facility] [place] [address] Care Team Providers Care Lead Embedded Software Engineer Name Role Phone Naila Clancy MD Primary Care Provider [phone] Encounter Details Date Type Department Care Team (Latest Contact Info) Description 01/20/2012 11:25 AM EDT - 01/20/2012 11:59 PM EDT Hospital [place] [address] CLINIC, Naila Sosa MD [address] [place], [place] [phone] Discharge Disposition: Home Social History Tobacco Use Types Packs/Day Years Used Date Smoking Tobacco: Never Assessed Sex and Gender Information Value Date Recorded Sex Assigned at Not on file Gender Identity Not on file Sexual Orientation Not on file documented as of this encounter Medications at Time of Discharge Medication Sig Dispensed Refills Start Date End Date atenolol (TENORMIN) 50 mg tablet 50mg, PO, Once daily 10/29/2009 simvastatin (ZOCOR) 40 mg tablet 40MG, PO, QHS 10/29/2009 acetaminophen (TYLENOL EXTRA STRENGTH) 500 mg tablet 10/29/2009 NAPROXEN SODIUM (ALEVE ORAL) 10/29/2009 12/14/2019 lisinopril (PRINIVIL;ZESTRIL) 5 mg tablet 10mg, PO, Once daily 10/29/2009 020 diphenhydrAMINE-Acetamino phen (TYLENOL PM) 25-500 mg-mg/mL Soln 10/29/2009 12/14/2019 traZODone (DESYREL) 50 mg tablet 10/29/2009 12/14/2019 meclizine (ANTIVERT) 12.5 mg tablet 10/29/2009 12/14/2019 documented as of this encounter Plan of Treatment Upcoming Encounters Date Type Department Care Team (Late st Contact Info) Description 05/24/2024 11:00 AM EST Office Visit Dermatology at [facility] [address] [place] [address] Esperanza Gooden MD [facility] DR MARIELENA [place] [address] documented as of this encounter Procedures Procedure Name Priority Date/Time Associated Diagnosis Comments MAMMO SCREENING CAD BILATERAL Routine 01/20/2012 11:47 AM EDT documented in this encounter Results * MAMMO DIGITAL BILATERAL SCREENING WITH CAD (01/20/2012 11:47 AM EDT) Anatomical Region Laterality Modality Breast Bilateral Mammography 01/20/2012 11:4 7 AM EDT Narrative 01/22/2012 2:05 PM EDT BILATERAL MAMMOGRAPHY ?? REASON FOR EXAM: Screening ?? TECHNIQUE: Cranio-caudal (CC) and mediolateral oblique (MLO) views of both breasts obtained with direct digital capture. The exam was evaluated by CAD Version 8.3.17. ?? FINDINGS: This is a negative mammogram (ACR Category 1). There is a stable fibroglandular pattern without significant change as compared to prior studies. There is no mammographic evidence of cancer. ? The breasts are predominantly fatty. ? Reduction surgery has been performed. ? CONCLUSION ?? This is a NEGATIVE mammogram (ACR Category 1). Routine screening mammography is recommended with the frequency dependent on the patient's age and breast cancer risk factors. ?? A [facility] has been [facility]. Procedure Note Slime Alfonso MD - 01/22/2012 BILATERAL MAMMOGRAPHY REASON FOR EXAM: Screening TECHNIQUE: Cranio-caudal (CC) and mediolateral oblique (MLO) views of both breasts obtained with direct digital capture. The exam was evaluated byProspectStreamD Version 8.3.17. FINDINGS: This is a negative mammogram (ACR Category 1). There is a stable fibroglandular pattern without significant change as compared to priorstudies. There is no mammographic evidence of cancer. The breasts are predominantly fatty. Reduction surgery has been performed. CONCLUSION This is a NEGATIVE mammogram (ACR Category 1). Routine screeningmammography is recommended with the frequency dependent on the patient's age and breastcancer risk factors. A letter has been sent to this patient by the [facility]. Naila Clancy MD IMG MAMMO ORDERABLES documented in this encounter Visit Diagnoses Not on filedocumented in this encounter Care Teams Lead Embedded Software Engineer Relationship Specialty Start Date End Date Naila Clancy MD [address] [place] [id number] PCP - General 02/26/10 12/04/19 documented as of this encounter
--- OUTSIDE RECORDS SUMMARY | 2024-04-08 13:20 | XMS_ITS | Encounter Summary ---
Author Organization [facility] [place] [address] Care Team Providers Care Installation And Service Technician Name Role Phone Damien Alana WHITING Primary Care Provider [phone] Encounter Details Date Type Department Care Team (Late st Contact Info) Description 12/16/2019 Telephone Obstetrics [place] [phone] Karen Rivera Social History Tobacco Use Types [...] EST Office Visit Dermatology at [facility] [address] [place] [address] Esperanza Gooden MD [facility] DR MARIELENA [place] [address] documented as of this encounter Visit Diagnoses Not on filedocumented in this encounter Care Teams Installation And Service Technician Relationship Specialty Start Date End Date Alana Quezada APRN [address] [place] [address] PCP - General Family Medicine 12/05/19 documented as of this encounter
--- OUTSIDE RECORDS SUMMARY | 2024-04-08 13:20 | XMS_ITS | Referral Summary ---
Author Organization [facility] Address [address] [place] [address] Care Team Providers Care Dry Mill Operator Name Role Phone Alana Quezada IMPROVEMENT NURSE Primary Care Provider [phone] Social History Tobacco Use Types Packs/Day Years Used Date Smoking Tobacco: Never Assessed Interpersonal Safety Answer Date Record ed Physically Hurt Never 11/06/2019 Verbally Threaten Not on file 11/06/2019 Comments Unknown Sex and Gender Information Value Date Recorded Sex Assigned at Not on file Legal Sex Female 17:32 EST Gender Identity Not on file Sexual Orientation Not on file Plan of Treatment Not on file Procedures Procedure Name Priority Date/Time Associated Diagnosis Comments HEPATITIS C AB W REFLEX TO HCV RNA BY PCR Routine 11/06/2023 11:42 EDT from Last 3 Months or Most Recently Relevant to Health Maintenance Results * HEPATITIS C AB W REFLEX TO HCV RNA BY PCR (11/06/2023 11:42 EDT) Hep C Antibody Negative Negative 11/09/2023 10:50 EDT [facility] Blood VENOUS BLOOD / Unknown 11/06/2023 11:42 EDT 11/06/2023 21:40 EDT us Provider Outr Resulting Lab CHEMISTRY & BLOOD GA S ORDERABLES Final Result [facility] [address] [place] [address] from Last 3 Months or Most Recently Relevant to Health Maintenance Insurance [employer] MEDICARE [employer] Care Teams Dry Mill Operator Relationship Specialty Start Date End Date Alana Quezada NP [address] [place] [address] [address] [place] [phone] PCP - General 02/04/23
--- OUTSIDE RECORDS SUMMARY | 2024-04-08 13:20 | XMS_ITS | Encounter Summary ---
Author Organization [facility] Address [facility] [place] [address] Care Team Providers Care Building Construction Teacher Name Role Phone RainAlana zhang APRN Primary Care Provider [phone] Encounter Details Date Type Department Care Team (Latest Contact Info) Description 06/29/2020 1:00 PM EDT TH Visit (TeleHealth) Obstetrics [place] [phone] Gale Dunbar MD [facility] DR OBSTETRICS & [place] [address] Recurrent UTI (urinary tract infection) Social History Tobacco Use Types Packs/Day Years Used Date Smoking Tobacco: Never Smokeless Tobacco: Never Alcohol Use Standard Drinks/Week Comments Yes 0 (1 standard drink = 0.6 oz pur e alcohol) Sex and Gender Information Value Date Recorded Sex Assigned at Not on file Gender Identity Not on file Sexual Orientation Not on file documented as of this encounter Progress Notes * Merna García, CCMA - 06/29/2020 1:00 PM EDT _X__ Patient not reached-voice message left 06/25/20 ____Patient reached and the following information was reviewed/obtained per protocol. ___Confirmed patient name and date of ___Confirmed tele med appt (Virtual visit) is downloaded and functioning ___Confirmed location of patient- TeleVisit is taking place in [place]__ [place]__[place]__ [place]__ If not on [facility], working on signing up for my DH Confirmed has completed any pre-visit questionnaires If has not received required previsit questionnaires, send via [facility] ___Reviewed medications, allergies, pharmacy, pain/depression, education ___Documented height/weight/LMP Other information or concerns: * Gale Dunbar - 06/29/2020 1:00 PM EDT TELEHEALTH Encounter [facility] Female Pelvic Medicine and Reconstructive Surgery @ [facility] I obtained the patient's consent to receiving health care services at [facility] through telemedicine. We discussed the opportunities and limitations of delivering health care services through telemedicine. I told the patient that the telemedicine service is being delivered over a secure connection, except in the event of emergency conditions when such requirements may be waived. Patient agreed to the participation of other individuals assisting with their care by telemedicine, if indicated. Patient informed that telemedicine informed consent form is available for patient's review in [facility]'s patient portal, [employer]. Patient verbally consents to this telephone visit and understands that this visit may be billed, similar to a clinic office visit. Ms. Suha Martinez is participating in a Telehealth phone visit today. Prior to beginning the visit, I confirmed the patients name and date of . Suha Martinez 1945 Time of start of TeleHealth visit: 1301 Time of end of TeleHealth visit: 1325 Location of patient at time of visit: [place] I provided care to the patient today via TeleHealth, 24 minutes telephone visit was spent in discussion with patient. Patient Name: Suha Martinez Medical Record Number: *[id number] Patient Primary Care Provider: Alana Quezada APRN Patient Active Problem List Diagnosis Code ??? Benign essential HTN I10 ??? DM (diabetes mellitus), type 2 E11.9 ??? GERD (gastroesophageal reflux disease) K21.9 ??? Microscopic hematuria R31.29 Chief Complaint: Recurrent urinary tract infections History of Present Illness: Ms. Martinez presents for follow-up of recurrent urinary tract infection.She had a cystoscopy last year that demonstrated evidence of bladder inflammation. She is still using the vaginal estrogen and has had fewer bladder spasm things. However, she continues to have symptoms of urinary tract infections and was most recently given nitrofurantoin after dropping of a urine sample at [facility]. She wasn't told the result of the culture so she isn't sure. She has been using estrogen but recently stopped when a warning came with the product. She resumed yesterday. She had been using it daily. Her symptoms of urinary tract infection include urinary frequency and pressure in her back. She hasnot taken cranberry tablets or d-mannose in the past for prevention. She is drinking about 60oz of water, 1 cup of coffee and some black tea during the day. Ms. Martinez feels like she is emptying her bladder and when she has a UTI, she feels like she has to urinate more frequently. Is urinating two times a night when she has symptoms. OBJECTIVE: There were no vitals taken for this visit. General: pleasant mood, normal speech Exam: Full exam deferred due to TeleHealth visit. Impression: Ms. Martinez is a 74 y.o. woman with: ?? H/o microscopic hematuria s/p ?? Recurrent UTI's: responded well to vaginal estrogen initially, has had reported UTIs since April. Recommendations: - Plan to obtain urine culture from [facility]. She will obtain another culture today as she has a standing order. - Recommended cut back on caffeine and continue 64oz of water intake - Recommended starting cranberry tablet supplement (2 tablets twice a day) - Also recommended timed voids when she doesn't have an infection to q2-3hours instead of urinating2-3 times a day. I will call next week to follow-up once we have the culture results. Gale Dunbar MD Division of Female Pelvic Medicine/Reconstructive Surgery CC: Alana Quezada APRN No ref. provider found * Trevin Wakefield MD - 06/29/2020 1:00 PM EDT I discussed with Dr. Ma Ms. Martinez's history and management immediately after her telehealth visit. I agree with her findings and plan, as documented in the note above, which I have reviewed and edited. TREVIN WAKEFIELD MD documented in this encounter Plan of Treatment Upcoming Encounters Date Type Department Care Team (Late st Contact Info) Description 05/24/2024 11:00 AM EST Office Visit Dermatology at [facility] [address] [place] [address] Esperanza Gooden MD [facility] DR [address]LE[address] [place] [address] documented as of this encounter Visit Diagnoses Diagnosis Recurrent UTI (urinary tract infection) Urinary tract infection, site not specified documented in this encounter Care Teams Building Construction Teacher Relationship Specialty Start Date End Date Alana Quezada APRN [address] [place] [address] PCP - General Family Medicine 12/05/19 documented as of this encounter
--- OUTSIDE RECORDS SUMMARY | 2024-04-08 13:20 | XMS_ITS | Encounter Summary ---
Author Organization [facility] [place] [address] Care Team Providers Care Epic Cadence Analyst Name Role Phone Naila Clancy MD Primary Care Provider Encounter Details Date Type Department Care Team (Latest Contact Info) Description 12/27/2010 11:16 AM EDT - 12/27/2010 11:59 PM EDT Hospital [place] [address] CLINIC, Naila Sosa MD [address] [place], [place] [phone] Discharge Disposition: Home Social History Tobacco Use [...] 11:00 AM EST Office Visit Dermatology at [facility] [address] [place] [address] Esperanza Gooden MD [facility] DR MARIELENA [place] [address] documented as of this encounter Procedures Procedure Name Priority Date/Time Associated Diagnosis Comments MAMMO SCREENING CAD BILATERAL Routine 12/27/2010 11:43 AM EDT documented in this encounter Results * MAMMO DIGITAL BILATERAL SCREENING WITH CAD (12/27/2010 11:43 AM EDT) Anatomical Region Laterality Modality Breast Bilateral Mammography 12/27/2010 11:4 3 AM EDT Narrative 12/31/2010 12:52 PM EDT ? BILATERAL MAMMOGRAPHY ?? REASON FOR EXAM: Screening [...] is no mammographic evidence of cancer. ? Reduction surgery has been performed. ? The breasts are of scattered density. ? CONCLUSION ?? This is a NEGATIVE mammogram (ACR Category 1). Routine screening mammography is recommended with the frequency dependent on the patient's age and breast cancer risk factors. ?? A letter has been sent to this patient by the [facility]. Procedure Note Nikki Ybarra MD - 12/31/2010 BILATERAL MAMMOGRAPHY REASON FOR EXAM: Screening TECHNIQUE: Cranio-caudal (CC) and mediolateral oblique (MLO) views of both breasts obtained with direct digital capture. The exam was evaluated byBioVigilant Systems Version 8.3.17. FINDINGS: This is a negative mammogram (ACR Category 1). There is a stable fibroglandular pattern without significant change as compared to priorstudies. There is no mammographic evidence of cancer. Reduction surgery has been performed. The breasts are of scattered density. CONCLUSION This is a NEGATIVE mammogram (ACR Category 1). Routine screeningmammography is recommended with the frequency dependent on the patient's age and breastcancer risk factors. A letter has been sent to this patient by the [facility]. Naila Clancy MD IMG MAMMO ORDERABLES documented in this encounter Visit Diagnoses Not on filedocumented in this encounter Care Teams Epic Cadence Analyst Relationship Specialty Start Date End Date Naila Clancy MD [address] [place] [address] PCP - General 02/26/10 12/04/19 documented as of this encounter
--- OUTSIDE RECORDS SUMMARY | 2024-04-08 13:20 | XMS_ITS | Encounter Summary ---
Author Organization [facility] [place] [address] Care Team Providers Care Residential Program Manager Name Role Phone Alana Quezada APRN Primary Care Provider [phone] Encounter Details Date Type Department Care Team (Late st Contact Info) Description 12/20/2019 Orders Only Obstetrics [place] [phone] Lala Brown, RN Vaginal atrophy Social History Tobacco Use [...] AM EST Office Visit Dermatology at [facility] [address] [place] [address] Esperanza Gooden MD [facility] [address] [address] documented as of this encounter Visit Diagnoses Diagnosis Vaginal atrophy Postmenopausal atrophic vaginitis documented in this encounter Care Teams Residential Program Manager Relationship Specialty Start Date End Date Alana Quezada APRN [address] [place] [address] PCP - General Family Medicine 12/05/19 documented as of this encounter
--- OUTSIDE RECORDS SUMMARY | 2024-04-08 13:20 | XMS_ITS | Encounter Summary ---
Author Organization [facility] Address [address] [place] [address] Care Team Providers Care Patient Care Technician Instructor Name Role Phone Unknown, Provider Primary Care Provider Unava ilable Encounter Details Date Type Department Care Team ([facility] st Contact Info) Description 11/04/2018 Results Only [facility]- [facility] [phone] Anaid Chiu MD [address] [facility] [address] [place] [id number] Social History Tobacco Use Types Packs/Day Years [...] Procedure Name Priority Date/Time Associated Diagnosis Comments PAP TEST- RESULT ONLY Routine 11/04/2018 0:00 EDT documented in this encounter Results * PAP TEST- RESULT ONLY (11/04/2018 0:00 EDT) Pathology Report: CYTOPATHOLOGY REPORT Reports generated via electronic interface contain original data; however they are lacking the format of the original report. Caution should be taken when reading/interpreti ng unformatted reports. Name: ? SUHA TROY ? Accession #: ? [id number] ? : ? 1945 (Age: 72) ??F ?Collect Date: ? 11/04/2018 ? Location: ? [facility] ? Receive Date: ? 11/05/2018 ? Provider: ANAID CHIU MD Copy to: JAH ANAYA STRAW HAT WASHER OPERATOR ? Final Report SPECIMEN ADEQUACY ? Satisfactory for Evaluation - assessment of transformation zone component not applicable ( e.g. atrophy, vaginal sample, hysterectomy) GENERAL CATEGORIZATION ? Negative for Intraepithelial Lesion or Malignancy ?? Specimen/Source: ??Pap Test, Vagina, ThinPrep Imaging System with manual evaluation Document reviewed and electronically signed by: ? Mario Lee, CT(ASCP) ? Report ??Date: 11/13/2018 14:03 HPV with Pap Test ? Date Ordered: ? 11/13/2018 ? Status: ?? Signed Out ?Date Complete: ? 11/16/2018 ? By: ??System Interface ? Date Reported: ? 11/16/2018 ? Interpretation RESULT: Cancelled by Physician/Nursing Unit Test not indicated, credit issued. Credit Issued Corrected on 11/16 AT 1048: Previously reported as High risk HPV testing is only FDA approved and validated for cervical or endocervical samples at the [facility]. It is not validated for vaginal samples as the test performance characteristics have not been evaluated. Credit issued. Sample has been sent to [facility] for HPV testing. Comments Document reviewed and electronically signed by: ? System Interface ? Report date: 11/16/2018 By the signature above, the attending physician certifies that he/she has personally conducted a gross and/or microscopic examination of the described specimens and rendered or confirmed the above diagnosis. End of Report [facility] 11/04/2018 11/05/2018 us Anaid Chiu MD PATHOLOGY ORDERABLES Edited Resu lt - Final [facility] [address] [place] [address] documented in this encounter Visit Diagnoses Not on filedocumented in this encounter Care Teams Patient Care Technician Instructor Relationship Specialty Start Date End Date Unknown, Provider, PCP - General 02/16/15 02/03/23 documented as of this encounter
--- OUTSIDE RECORDS SUMMARY | 2024-04-08 13:20 | XMS_ITS | Encounter Summary ---
Author Organization [facility] [place] [address] Care Team Providers Care Gun Mechanic Name Role Phone Naila Clancy MD Primary Care Provider [phone] Encounter Details Date Type Department Care Team (Latest Contact Info) Description 01/25/2014 11:21 AM EDT - 01/25/2014 11:59 PM EDT Hospital [place] [address] CLINIC, Naila Sosa MD [address] [place], [place] [phone] Discharge Disposition: Home Social History Tobacco Use [...] 11:00 AM EST Office Visit Dermatology at [facility] [address] [place] [address] Esperanza Gooden MD [facility] DR MAR[address]LENA [place] [address] documented as of this encounter Procedures Procedure Name Priority Date/Time Associated Diagnosis Comments MAMMO SCREENING CAD BILATERAL Routine 01/25/2014 11:45 AM EDT documented in this encounter Results * Mammo digital bilateral Screening with [...] center. Naila Clancy MD IMG MAMMO ORDERABLES documented in this encounter Visit Diagnoses Not on filedocumented in this encounter Care Teams Gun Mechanic Relationship Specialty Start Date End Date Naila Clancy MD [address] [place] [address] PCP - General 02/26/10 12/04/19 documented as of this encounter
--- OUTSIDE RECORDS SUMMARY | 2024-04-08 13:20 | XMS_ITS | Encounter Summary ---
Author Organization [facility] [place] [address] Care Team Providers Care Health Care Coordinator Name Role Phone Alana Quezada APRN Primary Care Provider Encounter Details Date Type Department Care Team (Late st Contact Info) Description 12/21/2019 12:45 [place] [address] COVID-19 ruled out Social History Tobacco Use Types Packs/Day Years [...] 11:00 AM EST Office Visit Dermatology at [facility] [address] [place] [address] Esperanza Gooden MD [facility] DR MARIELENA [place] [address] documented as of this encounter Procedures Procedure Name Priority Date/Time Associated Diagnosis Comments COVID-19 PCR STAT 12/21/2019 2:40 PM EDT COVID-19 ruled out documented in this encounter Results * COVID-19 PCR (12/21/2019 2:40 PM EDT) SARS-CoV-2 RNA Not Detected Not Detected [facility] Comment: This result should be interpreted in combination with the clinical observations, patient history and epidemiological information. For testing of asymptomatic individuals, assay performance characteristics and clinical utility have not been evaluated. Testing for SARS-CoV-2 (Severe acute respiratory syndrome coronavirus 2, formerly known as 2019 novel coronavirus or 2019-nCoV) to aid in the diagnosis of COVID-19 is performed using the [employer] RealTime SARS-CoV-2 as authorized by the FDA Emergency Use Authorization (EUA). This EUA assay is intended for In-vitro Diagnostic (IVD) use with respiratory specimens such as nasopharyngeal swabs collected from individuals during the acute phase of infection. This assay is performed based on the instructions for use provided by the official.fm and additional guidance provided by CDC and FDA. Testing is performed in the [facility] within the Department of Pathology and Laboratory Medicine at [facility], certified under the Clinical Laboratory Improvement Amendments of 1988 (CLIA), 42 U.S.C. section 263a, to perform high complexity tests. Assay performance has been verified according to clinical laboratory regulatory requirements. Test results are provided above. A result of Not Detected indicates that the viral RNA target is not present but does not preclude SARS-CoV-2 infection. False negative results may occur if a specimen is improperly collected, transported or handled; if amplification inhibitors are present; or if inadequate numbers of viral particles are present in the specimen. A result of Detected suggests a current or recent infection and the patient is presumed to be infected. As required or requested by public health authorities, positive specimens may be sent for additional testing. Positive and negative predictive values for this test are highly dependent on disease prevalence. A result of Invalid indicates that neither the viral RNA targets nor the internal control target was detected. An invalid result suggests the presence of inhibitors. Recollection is recommended in the case of an invalid result. CDC COVID-19 criteria for testing on human specimens and clinical management guidance information are available at the CDC Coronavirus Disease 2019 (COVID-19) webpage under Information for Healthcare Professionals (https://www.cdc.gov/coronavirus/2019-ncov/hcp/index.html) Additional information about this and other EUA tests can be found in provider and patient fact sheets at the following FDA website: https://www.fda.gov/medical-devices/wkchjvsmt-omsmloskkj-jydsley-devices/emergen -us e-authorizations#lxpsm48syt SARS-CoV-2 RNA Source [employer] Swab [facility] Nasopharyngeal swab (specimen) 12/21/2019 2:40 PM EDT 12/21/2019 2:40 PM EDT Comment:Symptoms->Asymptomat ic Narrative Resulting Agency Comment Spec In Lab Gale Dunbar MD MOLECULAR ORDERABL ES [facility] [place] [address] documented in this encounter Visit Diagnoses Diagnosis COVID-19 ruled out documented in this encounter Care Teams Health Care Coordinator Relationship Specialty Start Date End Date Alana Quezada APRN [address] [place] [address] PCP - General Family Medicine 12/05/19 documented as of this encounter
--- OUTSIDE RECORDS SUMMARY | 2024-04-08 13:20 | XMS_ITS | Encounter Summary ---
[facility] [place] [address] Care Team Providers Care Automatic Operator Name Role Phone Alana Quezada APRN Primary Care Provider [phone] Encounter Details Date Type Department Care Team (Late st Contact Info) Description 04/17/2009 Orders [place] [address] Ofelia Sotelo MD Social History Tobacco Use Types Packs/Day Years [...] 11:00 AM EST Office Visit Dermatology at [address] [address] Esperanza Gooden MD [facility] DR MARIELE[place] [address] documented as of this encounter Procedures Procedure Name Priority Date/Time Associated Diagnosis Comments SURGICAL PATHOLOGY REPORT Routine 04/17/2009 3:47 PM EST documented in this encounter Results * Surgical Pathology Report (04/17/2009 3:47 PM EST) Surgical Pathology Report [id number] ? Location: [facility] The signing pathologist has (i) examined the relevant preparation(s) for the specimen(s) and (ii) rendered or confirmed the diagnosis(es). . ?Pathology Surgical Pathology Final Report Clinical Information Specimen Submitted: A - Left Breast Tissue 1.285Kg, Left Breast B - Right Breast Tissue .995Kg, Right Breast Clinical History: Not provided Clinical Diagnosis: Macromastia Gross Description A - Labeled/Fixativ e: Left breast tissue 1.285 kg; fresh. Qty/Size/Weight : ?Single, 24.8 x 20.7 x 6.5 cm, 1280 g. Tissue Description: ?? Fibrofatty breast tissue and attached and detached, ?garcia-pink skin. ?? Skin: ?Surfaces are garcia-white with multiple small, garcia-mittal, ?keratotic lesions, 0.3 cm to 0.7 cm in greatest ?dimension. ?? Sectioning: ?Adipose and dense, mittal-white, fibrous tissue. Sections/Proces sing: ??(R3) B - Labeled/Fixativ e: Right breast tissue .995 kg, fresh. Qty/Size/Weight : ?Fragments, aggregating 26.0 x 17.5 x 6.5 cm, 990 g. Tissue Description: ?? Fibrofatty breast tissue and attached and detached, ?garcia-pink skin. ?? Skin: ?Surfaces are smooth, garcia-white, focally with small, ?garcia-mittal, keratotic lesions, 0.3 cm in greatest ?dimension. ?? Sectioning: ?Adipose and dense, mittal-white, fibrous tissue. Sections/Proces sing: ??(R3) ??aje/PPS Microscopic Description Slides reviewed, microscopic description not recorded. Diagnosis A - Left Breast Tissue 1280 g ?Focal fibrocystic disease with cysts B - Right Breast Tissue 990 g ?Focal fibrocystic disease with apocrine cysts CR-0 04/20/09 VAM 04/20/09 Verified by: ? Gemma KELLEY, Lucien Bronson ?Pathologist ?(Electronic Signature) The attending pathologist whose signature appears on this report has reviewed all diagnostic slides and has edited the gross and/or microscopic portion of the report in rendering the final pathologic diagnosis. GARRET CHAN 04/17/2009 3:47 PM EST Ofelia Sotelo MD PATHOLOGY/CYTOLOGY ORDERABLES GARRET CHAN documented in this encounter Visit Diagnoses Not on filedocumented in this encounter Care Teams Automatic Operator Relationship Specialty Start Date End Date Alana Quezada APRN [address] [place] [address] [address] [place] [address] PCP - General Family Medicine 12/05/19 documented as of this encounter
--- OUTSIDE RECORDS SUMMARY | 2024-04-08 13:20 | XMS_ITS | Encounter Summary ---
[place] [address] Care Team Providers Care Computer Trainer Name Role Phone Naila Clancy MD Primary Care Provider [phone] Encounter Details Date Type Department Care Team (Latest Contact Info) Description 12/27/2010 11:14 AM EDT - 12/27/2010 11:59 PM EDT [place] [id number] Naila lCancy MD [address] [place] [address] Discharge Disposition: Home Social History Tobacco Use [...] 11:00 AM EST Office Visit Dermatology at [facility] [address] [place] [address] Esperanza Gooden MD [facility] DR [address] [place] [address] documented as of this encounter Visit Diagnoses Not on filedocumented in this encounter Care Teams Computer Trainer Relationship Specialty Start Date End Date Naila Clancy MD [address] [place] [address] PCP - General 02/26/10 12/04/19 documented as of this encounter
--- OUTSIDE RECORDS SUMMARY | 2024-04-08 13:20 | XMS_ITS | Encounter Summary ---
Author Organization [facility] [place] [address] Care Team Providers Care Etl Architect Name Role Phone Naila Clancy MD Primary Care Provider [phone] Encounter Details Date Type Department Care Team (Late st Contact Info) Description 11/25/2019 Ancillary Procedure Radiology Library at [facility] [place] [address] Adjovu, Alana, FURNITURE INSTALLER [address] [place] [address] Social History Tobacco Use Types Packs/Day Years [...] 11:00 AM EST Office Visit Dermatology at [facility] [address] [place] [address] Esperanza Gooden MD [facility] DR [address] [place] [address] documented as of this encounter Procedures Procedure Name Priority Date/Time Associated Diagnosis Comments FILM LIBRARY STORAGE ONLY ULTRASOUND STUDY Routine 11/25/2019 12:00 AM EDT documented in this encounter Results * Film Library- Storage Only Ultrasound Study (11/25/2019 12:00 AM EDT) Narrative RAD - 12/01/2019 5:52 PM EDT This exam is auto-finalizing. It's purpose is for storage only. Alana Adjovu FURNITURE INSTALLER IMG FILM LIBRARY OR DERABLES [place], [place] documented in this encounter Visit Diagnoses Not on filedocumented in this encounter Care Teams Etl Architect Relationship Specialty Start Date End Date Naila Clancy MD [address] [place] [address] PCP - General 02/26/10 12/04/19 documented as of this encounter
--- OUTSIDE RECORDS SUMMARY | 2024-04-08 13:20 | XMS_ITS | Encounter Summary ---
Author Organization [facility] Address [address] [place] [address] Care Team Providers Care Optical Assistant Name Role Phone Unavailable Primary Care Provider Unavailabl e Encounter Details Date Type Department Care Team (Late st Contact Info) Description 03/03/2006 Results Only [facility] conversion [address] [place] [address] Anjel Canela MD [address] [place] [address] Social History Tobacco Use Types Packs/Day Years [...] Procedure Name Priority Date/Time Associated Diagnosis Comments CYTOPATHOLOGY Routine 03/03/2006 0:00 EST documented in this encounter Results * CYTOPATHOLOGY (03/03/2006 0:00 EST) Pathology Report: CYTOPATHOLOGY REPORT Reports generated via electronic interface contain original data; however they are lacking the format of the original report. Caution should be taken when reading/interpreti ng unformatted reports. Name: ? SUHA TROY ? Accession #: ? [id number] : ? 1945 (Age: 60) ??F ?Collect Date: ? 03/03/2006 Location: ? [facility] ? Receive Date: ? 03/04/2006 Provider: ? ANJEL CANELA MD Copy to: ? CYTOLOGIC DIAGNOSIS: ? Urine, barbotage, cytologic evaluation: 1. ?No malignant cells present. 2. ? Scattered mature squamous cells consistent with vaginal contamination. Document reviewed and electronically signed by: ? ERVIN SOLANO MD Report Date: ??03/04/2006 16:43 By the signature above, the attending physician certifies that he/she has personally conducted a gross and/or microscopic examination of the described specimens and rendered or confirmed the above diagnosis. Specimen Type: ? Urine, Barbotage Clinical History: ? Chronic microhematuria ? Gross Description: ? 1 tube of Cytolyt was received and processed by selective cellular enhancement technique. ? End of Report [facility] 03/03/2006 03/04/2006 8:2 4 EST us Anjel Canela MD PATHOLOGY ORDERABLES Final R esult [facility] [address] [place] [address] documented in this encounter Visit Diagnoses Not on filedocumented in this encounter
--- OUTSIDE RECORDS SUMMARY | 2024-04-08 13:20 | XMS_ITS | Encounter Summary ---
Author Organization [facility] [place] [address] Care Team Providers Care [employer] Name Role Phone Alana Quezada APRN Primary Care Provider Encounter Details Date Type Department Care Team (Late st Contact Info) Description 12/26/2019 Telephone Obstetrics [place] [phone] Sailaja Villarreal Social History Tobacco Use Types Packs/Day Years [...] encounter Miscellaneous Notes * Telephone Encounter - Sailaja Villarreal - 12/26/2019 10:44 AM EDT Message left for patient to call to schedule 3-4 month follow up with Dr. Dunbar. documented in this encounter Plan of Treatment Upcoming Encounters Date Type Department Care Team (Late st Contact Info) Description 05/24/2024 11:00 AM EST Office Visit Dermatology at [facility] [address] [place] [address] Esperanza Gooden MD [facility] [address]LE[address] [place] [address] documented as of this encounter Visit Diagnoses Not on filedocumented in this encounter Care Teams [employer] Relationship Specialty Start Date End Date Alana Quezada APRN [address] [place] [address] [address] [facility] [place] [address] PCP - General Family Medicine 12/05/19 documented as of this encounter
--- OUTSIDE RECORDS SUMMARY | 2024-04-08 13:20 | XMS_ITS | Encounter Summary ---
Author Organization [facility] [place] [address] Care Team Providers Care Segment Assembler Name Role Phone RainAlana zhang APRN Primary Care Provider Encounter Details Date Type Department Care Team (Late st Contact Info) Description 04/20/2020 2:00 PM EST Office Visit Obstetrics [place] [phone] Gale Dunbar MD [facility] DR OBSTETRICS & [place] [address] Dysuria; Microscopic hematuria; Recurrent UTI (urinary tract infection) Social History [...] Sign Reading Time Taken Comments Blood Pressure 124/57 04/20/2020 1:57 PM EST Pulse 64 04/20/2020 1:57 PM EST Temperature - - Respiratory Rate - - Oxygen Saturation 99% 04/20/2020 1:57 PM EST Inhaled Oxygen Concentration - - Weight 76.2 kg (168 lb) 04/20/2020 1:57 PM EST Height - - Body Mass Index - - documented in this encounter Progress Notes * Gale Dunbar - 04/20/2020 2:00 PM EST Patient Active Problem List Diagnosis Code ??? Benign essential HTN I10 ??? DM (diabetes mellitus), type 2 E11.9 ??? GERD (gastroesophageal reflux disease) K21.9 ??? Microscopic hematuria R31.29 1 SUBJECTIVE: Suha Martinez comes in today for follow-up of h/o microscopic hematuria with cystoscopy in December 2019 with inflammatory changes that were present. Today, Suha is feeling some burning when she urinates, which makes her think she has a urinary tract infection. She has not had a culture positive UTI in the past few months. She had been using her vaginal estrogen nightly, but ran out three days after [place]. She denies any abnormal vaginaldischarge or bleeding. She felt like she had some UTI symptoms a few times in the past few months and they both subsided with cranberry juice and aggressive hydration. When she was using the estrogen she felt like she was having some urethral cramping. OBJECTIVE: Blood pressure 124/57, pulse 64, weight 76.2 kg (168 lb), SpO2 99 %. Gen: well-appearing, NAD HEENT: head normocephalic, eyes without obvious icterus Psych: appropriate affect Neuro: grossly normal Results for orders placed or performed in visit on 04/20/20 Urine culture Specimen: Clean Catch Urine Result Value Ref Range Urine Culture (A) Greater than 100,000 cfu/ml Klebsiella pneumoniae Susceptibility testing in progress Organism Klebsiella pneumoniae (A) Susceptibility Klebsiella pneumoniae - VITEK 2 METHOD Amikacin Sensitive Ampicillin + Sulbactam Sensitive Aztreonam Sensitive Cefazolin Sensitive Ceftazidime <=1 Sensitive Ceftriaxone Sensitive Ertapenem Sensitive Gentamicin Sensitive Levofloxacin* Sensitive * Levofloxacin and Ciprofloxacin may not adequately treat infections incritically ill patients evenwhen isolates test susceptible in the laboratory.Contact Infectious Disease before using in critically ill patients. Meropenem <=0.25 Sensitive Nitrofurantoin Sensitive Piperacillin/Tazobactam <=4 Sensitive Tetracycline Sensitive Tobramycin Sensitive Trimethoprim/Sulfa Sensitive Urinalysis with reflex Culture Specimen: Clean Catch Urine Result Value Ref Range Glucose UA Negative Negative mg/dL Protein UA Trace (A) Negative mg/dL Bilirubin UA Negative Negative mg/dL Urobilinogen UA Normal Normal mg/dL pH UA 6.0 5.0 - 8.0 Blood UA Small (A) Negative mg/dL Ketones UA Negative Negative mg/dL Nitrite UA Positive (A) Negative Leukocytes UA Large (A) Negative mcL Appearance UA Turbid (A) Clear Spec Robertson UA 1.014 1.006 - 1.030 Color UA Yellow Yellow Culture Reflexed Yes Urinalysis Microscopic Exam Result Value Ref Range RBC UA 6 (H) 0 - 4 /HPF WBC UA >100 (H) 0 - 5 /HPF Bacteria UA Many (A) None /HPF Squam Epith UA 8 (H) <=4 /HPF Hyaline Cast UA 2 0 - 2 /LPF ASSESSMENT: Suha Martinez is a 74 y.o. woman with: ?? H/o microscopic hematuria ?? Recurrent UTI's: responded well to vaginal estrogen, but appears to have a UTI today based upon symptoms and urine dip PLAN: ??? For UTI: Bactrim for emperic treatment, will change if not susceptible. Plan to have recheck UAlocally, there is a standing order at [facility] already. If hematuria still exists will obtain upper tract imaging ??? H/o chronic UTI's: will refill vaginal estrogen ??? Return in 2-3 months for recheck. Seen and d/w Dr.Shaw Gale Dunbar MD Division of Female Pelvic Medicine & Reconstructive Surgery * Chuck Hua MD - 04/20/2020 2:00 PM EST STAFF NOTE Patient was seen in conjunction with Dr. Dunbar, a Fellow in Female Pelvic Medicine and Reconstructive Pelvic Surgery. We have coauthored this note. I was present for the exam, and provided the medical decision making. Chuck Hua MD Division of Female Pelvic Medicine and Reconstructive Pelvic Surgery documented in this encounter Plan of Treatment Upcoming Encounters Date Type Department Care Team (Late st Contact Info) Description 05/24/2024 11:00 AM EST Office Visit Dermatology at [facility] [address] [place] [address] Esperanza Gooden MD [facility] DR MARIELENA [place] [address] documented as of this encounter Procedures Procedure Name Priority Date/Time Associated Diagnosis Comments URINALYSIS MICROSCOPIC EXAM Routine 04/20/2020 2:43 PM EST URINALYSIS WITH REFLEX CULTURE Routine 04/20/2020 2:43 PM EST Dysuria URINE CULTURE Routine 04/20/2020 2:43 PM EST documented in this encounter Results * (ABNORMAL) Urine culture (04/20/2020 2:43 PM EST) Urine Culture Greater than 100,000 cfu/ml Klebsiella pneumoniae : two morphologies(A ) [facility] Organism Klebsiella pneumoniae(A) [facility] Organism Klebsiella pneumoniae(A) [facility] Urine specimen obtained by clean catch procedure (specimen) 04/20/2020 2:43 PM EST 04/20/2020 8:07 PM EST Narrative Resulting Agency Comment Spec In Lab Organism Antibiotic Method Susceptibility Klebsiella pneumoniae Amikacin VITEK 2 METHOD Sensitive Klebsiella pneumoniae Ampicillin + Sulbactam VITEK 2 M ETHOD Sensitive Klebsiella pneumoniae Aztreonam VITEK 2 METHOD Sensitive Klebsiella pneumoniae Cefazolin VITEK 2 METHOD Sensitive Klebsiella pneumoniae Ceftazidime VITEK 2 METHOD <=1: Sensitive Klebsiella pneumoniae Ceftriaxone VITEK 2 METHOD Sensitive Klebsiella pneumoniae Ertapenem VITEK 2 METHOD Sensitive Klebsiella pneumoniae Gentamicin VITEK 2 METHOD Sensitive Klebsiella pneumoniae Levofloxacin VITEK 2 METHOD Sensitive Comment: Levofloxacin and Ciprofloxacin may not adequately treat infections in critically ill patients even when isolates test susceptible in the laboratory. Contact Infectious Disease before using in critically ill patients. Klebsiella pneumoniae Meropenem VITEK 2 METHOD <=0.25: Sensitive Klebsiella pneumoniae Nitrofurantoin VITEK 2 METHOD Sensitive Klebsiella pneumoniae Piperacillin/Tazobactam VITEK 2 METHOD <=4: Sensitive Klebsiella pneumoniae Tetracycline VITEK 2 METHOD Sensitive Klebsiella pneumoniae Tobramycin VITEK 2 METHOD Sensitive Klebsiella pneumoniae Trimethoprim/Sulfa VITEK 2 METHO D Sensitive Klebsiella pneumoniae Amikacin VITEK 2 METHOD Sensitive Klebsiella pneumoniae Ampicillin + Sulbactam VITEK 2 M ETHOD Sensitive Klebsiella pneumoniae Aztreonam VITEK 2 METHOD Sensitive Klebsiella pneumoniae Cefazolin VITEK 2 METHOD Sensitive Klebsiella pneumoniae Ceftazidime VITEK 2 METHOD <=1: Sensitive Klebsiella pneumoniae Ceftriaxone VITEK 2 METHOD Sensitive Klebsiella pneumoniae Ertapenem VITEK 2 METHOD Sensitive Klebsiella pneumoniae Gentamicin VITEK 2 METHOD Sensitive Klebsiella pneumoniae Levofloxacin VITEK 2 METHOD Sensitive Comment: Levofloxacin and Ciprofloxacin may not adequately treat infections in critically ill patients even when isolates test susceptible in the laboratory. Contact Infectious Disease before using in critically ill patients. Klebsiella pneumoniae Meropenem VITEK 2 METHOD <=0.25: Sensitive Klebsiella pneumoniae Nitrofurantoin VITEK 2 METHOD Sensitive Klebsiella pneumoniae Tetracycline VITEK 2 METHOD Sensitive Klebsiella pneumoniae Tobramycin VITEK 2 METHOD Sensitive Klebsiella pneumoniae Trimethoprim/Sulfa VITEK 2 METHO D Sensitive Gale Dunbar MD MICROBIOLOGY - GEN ERAL ORDERABLES Performing Organization Address [facility] Co de Phone Number [facility] [place] [address] * (ABNORMAL) Urinalysis Microscopic Exam (04/20/2020 2:43 PM EST) RBC, Urine 6(H) 0 - 4 /HPF [facility] WBC, Urine >100(H) 0 - 5 /HPF [facility] Bacteria, Urine Many(A) None /HPF [facility] Squamous Epithelial Cells Raw Data, Urine 8(H) <=4 /HPF [facility] Hyaline Casts, Urine 2 0 - 2 /LPF [facility] Urine specimen obtained by clean catch procedure (specimen) 04/20/2020 2:43 PM EST 04/20/2020 4:53 PM EST Narrative Resulting Agency Comment Spec In Lab Gale Dunbar MD URINE ORDERABLES Performing Organization Address [facility] Co de Phone Number [facility] [place] [address] * (ABNORMAL) Urinalysis with reflex Culture (04/20/2020 2:43 PM EST) Glucose, Urine Dipstick Negative Negative mg/dL [facility] Protein, Urine Dipstick Trace(A) Negative mg/dL [facility] Bilirubin, Urine Dipstick Negative Negative mg/dL [facility] Comment: Clinical correlation required for positive Urine Bilirubin results as false positive may occur with some drugs and drug related products. If a false positive is suspected a serum total bilirubin should be considered if clinically indicated. Urobilinogen, Urine Dipstick Normal Normal mg/dL [facility] pH, Urn (dipstick) 6.0 5.0 - 8.0 [facility] Blood, Urine Dipstick Small(A) Negative mg/dL [facility] Ketone, Urine Dipstick Negative Negative mg/dL [facility] Nitrite, Urine Dipstick Positive(A) Negative [facility] Leukocytes, Urine Dipstick Large(A) Negative [facility] Appearance, Urine Dipstick Turbid(A) Clear [facility] Specific Robertson Urine Automated 1.014 1.006 - 1.030 [facility] Color, Urine Dipstick Yellow Yellow [facility] Reflex to Culture Yes [facility] Urine specimen obtained by clean catch procedure (specimen) 04/20/2020 2:43 PM EST 04/20/2020 4:53 PM EST Narrative Resulting Agency Comment Spec In Lab Chuck Hua MD URINE ORDERABLES [facility] [place] [address] documented in this encounter Visit Diagnoses Diagnosis Dysuria Microscopic hematuria Recurrent UTI (urinary tract infection) Urinary tract infection, site not specified documented in this encounter Care Teams Segment Assembler Relationship Specialty Start Date End Date Alana QuezadaJOHANNE [address] [place] [address] PCP - General Family Medicine 12/05/19 documented as of this encounter
--- OUTSIDE RECORDS SUMMARY | 2024-04-08 13:20 | XMS_ITS | Encounter Summary ---
Author Organization [facility] [place] [address] Care Team Providers Care Pitch Gatherer Name Role Phone Alana Quezada APRN Primary Care Provider Encounter Details Date Type Department Care Team (Late st Contact Info) Description 01/17/2020 Telephone Obstetrics [place] [phone] Lindsey Williamson RN Social History Tobacco Use Types Packs/Day Years [...] encounter Miscellaneous Notes * Telephone Encounter - Lindsey Williamson RN - 01/17/2020 1:06 PM EDT From: Dorcas Santacruz Sent: 01/17/2020 12:07 PM EDT To: Lala Brown RN Subject: Gerjevic Patient Patient called regarding her Estradiol (Bulk) 100 % Powd 0.01 % script. She never got a call from the pharmacy. She can be reached at [phone]. Spoke to patient - Estrace [facility] Fax documented in this encounter Plan of Treatment Upcoming Encounters Date Type Department Care Team (Late st Contact Info) Description 05/24/2024 11:00 AM EST Office Visit Dermatology at [address] [place] [address] Esperanza Gooden MD [facility] DR MARIELE[place] [address] documented as of this encounter Visit Diagnoses Not on filedocumented in this encounter Care Teams Pitch Gatherer Relationship Specialty Start Date End Date Alana Quezada APRN [address] [place] [address] [address] [place] [address] PCP - General Family Medicine 12/05/19 documented as of this encounter
--- OUTSIDE RECORDS SUMMARY | 2024-04-08 13:20 | XMS_ITS | Encounter Summary ---
Author Organization [facility] [place] [address] Care Team Providers Care Filler Shredder Name Role Phone Damien Alana WHITING Primary Care Provider Encounter Details Date Type Department Care Team (Late st Contact Info) Description 12/19/2019 Telephone Obstetrics [place] [phone] Karen Rivera Social History Tobacco Use Types [...] 11:00 AM EST Office Visit Dermatology at [facility] [address] [place] [address] Esperanza Gooden MD [facility] DR [address]LE[address] [place] [address] documented as of this encounter Visit Diagnoses Not on filedocumented in this encounter Care Teams Filler Shredder Relationship Specialty Start Date End Date Alana Quezada APRN [address] [place] [address] PCP - General Family Medicine 12/05/19 documented as of this encounter
--- OUTSIDE RECORDS SUMMARY | 2024-04-08 13:20 | XMS_ITS | Encounter Summary ---
Author Organization [facility] [place] [address] Care Team Providers Care Faculty Criminal Justice Name Role Phone Alana Quezada APRN Primary Care Provider Encounter Details Date Type Department Care Team (Late st Contact Info) Description 12/20/2019 Telephone Obstetrics [place] [address] Gale Dunbar MD [facility] DR OBSTETRICS & [place] [address] Social History Tobacco Use Types Packs/Day Years [...] encounter Miscellaneous Notes * Telephone Encounter - Gale Dunbar - 12/20/2019 4:53 PM EDT Telephone Note Called Ms. Martinez to let her know that her urine culture was negative. left a message to return call regarding results. No answer on home phone. Plan to see her on Thursday for cystoscopy. Gale Dunbar MD documented in this encounter Plan of Treatment Upcoming Encounters Date Type Department Care Team (Late st Contact Info) Description 05/24/2024 11:00 AM EST Office Visit Dermatology at [address] [place] [address] Esperanza Gooden MD [facility] DR MARIELENA [place] [address] documented as of this encounter Visit Diagnoses Not on filedocumented in this encounter Care Teams Faculty Criminal Justice Relationship Specialty Start Date End Date Alana Quezada APRN [address] [place] [address] [address] [place] [address] PCP - General Family Medicine 12/05/19 documented as of this encounter
--- OUTSIDE RECORDS SUMMARY | 2024-04-08 13:20 | XMS_ITS | Clinical Summary ---
Author Organization [facility] Address [address] [place] [address] Care Team Providers Care Fire Official Name Role Phone Alana Quezada PATIENT COMPANION Primary Care Provider [phone] Social History Tobacco Use Types Packs/Day Years Used Date Smoking Tobacco: Never Assessed Interpersonal Safety Answer Date Record ed Physically Hurt Never 11/06/2019 Verbally Threaten Not on file 11/06/2019 Comments Unknown Sex and Gender Information Value Date Recorded Sex Assigned at Not on file Legal Sex Female 17:32 EST Gender Identity Not on file Sexual Orientation Not on file Plan of Treatment Health Maintenance Due Date Last Done Comments Fall Risk Screening 2009 RSV Immunization ( o r 60+ Years) (1 - 1-dose 75+ series) 12/14/2019 COVID-19 Vaccine ( season) 2023 Hepatitis C Screen Completed 11/06/2023 Procedures Procedure Name Priority Date/Time Associated Diagnosis Comments HEPATITIS C AB W REFLEX TO HCV RNA BY PCR Routine 11/06/2023 11:42 EDT from Last 3 Months or Most Recently Relevant to Health Maintenance Results * HEPATITIS C AB W REFLEX TO HCV RNA BY PCR (11/06/2023 11:42 EDT) Hep C Antibody Negative Negative 11/09/2023 10:50 EDT [facility] Blood VENOUS BLOOD / Unknown 11/06/2023 11:42 EDT 11/06/2023 21:40 EDT us Provider Outr Resulting Lab CHEMISTRY & BLOOD GA S ORDERABLES Final Result [facility] [address] [place] [address] from Last 3 Months or Most Recently Relevant to Health Maintenance Insurance [address] [place] [address] [place] [phone] Care Teams Fire Official Relationship Specialty Start Date End Date Alana Quezada NP [address] [place], [place] [address] [address] [place] [id number] PCP - General 02/04/23
== END 2024-04-08 13:35 ==
LOC: DI 13:18
PROVIDERS: PCP Nurse Practitioner Family; Visit Provider Nurse Practitioner Family
DX: R05.9 Cough, unspecified (principal)
CPT/HCPCS: 71046

== ENCOUNTER 2024-06-07 02:22 | Outpatient (CLI) | payer MEDICARE, SELFPAY ==
--- NOTE | 2024-06-07 11:48 | DI.RAD_ITS ---
Exam(s) XR SHOULDER RT COMPLETE 2+V EXAM: XR SHOULDER RT COMPLETE 2+V CLINICAL HISTORY: right shoulder pain,m25.511. TECHNIQUE: 2D digital imaging was performed. Five views. COMPARISON: CR XR SHOULDER RT COMPLETE 2+V from 12/26/2022 FINDINGS: BONES: No acute fracture is present. No bony destructive lesion is seen. Degenerative cystic changes in the greater tuberosity. JOINTS: No dislocation present. The glenohumeral joint space is maintained. Mild spurring at the gl enoid and AC joint. SOFT TISSUE: Normal. IMPRESSION: Stable mild degenerative changes. DATA REPOSITORY: RADIATION DOSE DELIVERED:
== END 2024-06-07 02:42 ==
LOC: DI 02:22
PROVIDERS: PCP Nurse Practitioner Family; Visit Provider Nurse Practitioner Family
DX: M25.511 Pain in right shoulder (principal)
CPT/HCPCS: 73030